=== PATIENT | male | born 1960 | race Caucasian/White ===

== ENCOUNTER 2021-09-16 13:59 | Outpatient (REF) | payer OTHER, SELFPAY ==
[2021-09-16 14:04] LABS: MANUAL DIFF FLAG NO
[2021-09-16 14:27] LABS: Basophils Percent Auto 0.6 % (0-2); Eosinophils Absolute Auto 0.1 X10*3/uL (0.0-0.4); Eosinophils Percent Auto 2.5 % (0-4); Hematocrit 42.3 % (42.0-52.0); Hemoglobin 13.8 g/dl (14.0-18.0); Imm Gran Abs Auto 0.02 X10*3/uL (0.00-0.03); Imm Gran Pct Auto 0.4 % (0.0-0.4); Lymphocytes Absolute Auto 2.2 X10*3/uL (1.2-4.9); Lymphocytes Percent Auto 41.2 % (20-40); Mean Corpuscular HGB Conc 32.6 g/dl (31.0-36.0); Mean Corpuscular Hemoglobin 32.2 pg (27.0-33.0); Mean Corpuscular Volume 98.6 fL (80.0-98.0); Mean Platelet Volume 10.6 fL (9.4-12.4); Monocytes Absolute Auto 0.5 X10*3/uL (0.1-1.2); Monocytes Percent Auto 8.7 % (2-11); Neutrophils Absolute Auto 2.5 x10*3/uL (2.0-8.3); Neutrophils Percent Auto 46.6 % (45-73); Platelet Count 266 X10*3/uL (160-400); Red Blood Count 4.29 X10*6/uL (4.60-5.80); Red Cell Distribution Width 12.4 % (11.0-16.0); White Blood Count 5.3 X10*3/uL (4.8-10.8)
[2021-09-16 14:29] LABS: Appearance Urine CLEAR; Color Urine YELLOW; Glucose Urine UA NEG (NEG); Leukocyte Esterase Urine NEG (NEG); Nitrite Urine NEG (NEG); Specific Gravity - Urine >= 1.030 (1.005-1.025); Urine Blood NEG (NEG); Urine Ketones NEG (NEG); Urine Protein NEG (NEG-TRACE)
[2021-09-16 14:35] LABS: Estimated Average Glucose 111 mg/dL; Hemoglobin A1c % 5.5 %
[2021-09-16 14:49] LABS: Creatinine Urine 144.78 mg/dL; Microalbum/Creatinine Ratio Ur 4.1 ug/mg cr
[2021-09-16 14:52] LABS: Alanine Aminotransferase 45 U/L (0-40); Albumin Level 4.1 g/dL (3.5-5.0); Alkaline Phosphatase 65 U/L (39-117); Anion Gap 13 (12-20); Aspartate Amino Transferase 44 U/L (5-37); Bilirubin Total 0.8 mg/dL (0.0-1.0); Blood Urea Nitrogen 18 mg/dL (9-16); Calcium 9.2 mg/dL (8.4-10.2); Carbon Dioxide 26 mmol/L (22-29); Chloride 107 mmol/L (96-108); Cholesterol 184 mg/dL; Estimated Glomerular Filt Rate > 60; Glucose Fasting 98 mg/dL (60-99); HDL Cholesterol 32 mg/dL; LDL Cholesterol Calculated 108 mg/dl; Potassium 4.3 mmol/L (3.3-5.1); Sodium 142 mmol/L (135-145); Total Protein 6.7 g/dL (6.5-8.0); Triglycerides 222 mg/dL
[2021-09-16 15:12] LABS: PSA,Total (Free>4and<10) 1.32 ng/mL (0.00-4.00)
[2021-09-16 16:08] LABS: Reflex LDLD? No
== END 2021-09-16 14:00 | disposition home or self-care (01) ==
LOC: HO.LNP 13:59
PROVIDERS: Visit Provider Internal Medicine
DX: Z00.00 Encounter for general adult medical examination without abnormal findings (principal); Z12.5 Encounter for screening for malignant neoplasm of prostate; E78.1 Pure hyperglyceridemia; R73.03 Prediabetes
CPT/HCPCS: 80053; 80061; 81003; 82043; 83036; 84153; 85025

== ENCOUNTER 2023-09-21 10:46 | Outpatient (REF) | payer MEDICARE, SELFPAY ==
[2023-09-21 10:51] LABS: MANUAL DIFF FLAG NO
[2023-09-21 11:48] LABS: Basophils Percent Auto 0.5 % (0-2); Eosinophils Absolute Auto 0.2 X10*3/uL (0.0-0.4); Eosinophils Percent Auto 2.5 % (0-4); Hematocrit 42.8 % (42.0-52.0); Hemoglobin 14.6 g/dl (14.0-18.0); Imm Gran Abs Auto 0.02 X10*3/uL (0.00-0.03); Imm Gran Pct Auto 0.3 % (0.0-0.4); Lymphocytes Absolute Auto 2.6 X10*3/uL (1.2-4.9); Lymphocytes Percent Auto 41.1 % (20-40); Mean Corpuscular HGB Conc 34.1 g/dl (31.0-36.0); Mean Corpuscular Hemoglobin 32.3 pg (27.0-33.0); Mean Corpuscular Volume 94.7 fL (80.0-98.0); Mean Platelet Volume 10.7 fL (9.4-12.4); Monocytes Absolute Auto 0.6 X10*3/uL (0.1-1.2); Monocytes Percent Auto 9.8 % (2-11); Neutrophils Absolute Auto 2.9 x10*3/uL (2.0-8.3); Neutrophils Percent Auto 45.8 % (45-73); Platelet Count 268 X10*3/uL (160-400); Red Blood Count 4.52 X10*6/uL (4.60-5.80); Red Cell Distribution Width 12.4 % (11.0-16.0); White Blood Count 6.3 X10*3/uL (4.8-10.8)
[2023-09-21 11:52] LABS: Appearance Urine Clear; Color Urine Yellow; Glucose Urine UA Negative (Negative); Leukocyte Esterase Urine Negative (Negative); Nitrite Urine Negative (Negative); PH 5.5 (5.0-9.0); Specific Gravity - Urine 1.015 (1.005-1.025); Urine Blood Negative (Negative); Urine Ketones Negative (Negative); Urine Protein Negative (Neg-Trace)
[2023-09-21 11:58] LABS: Bacteria Urine None Seen (None Seen); Hyaline Casts Urine 0-2 /LPF (0-2); RBC Urine 0-2 /HPF (0-2); Squamous Epithelial Cell Urine 0-2 /HPF (0-2); WBC Urine 0-5 /HPF (0-5)
[2023-09-21 12:00] LABS: Estimated Average Glucose 111 mg/dL; Hemoglobin A1c % 5.5 % (<6.0)
[2023-09-21 12:24] LABS: PSA,Total (Free>4and<10) 1.49 ng/mL (0.00-4.00)
[2023-09-21 12:27] LABS: Alanine Aminotransferase 48 U/L (0-40); Albumin Level 4.1 g/dL (3.5-5.0); Alkaline Phosphatase 67 U/L (39-117); Anion Gap 15 (12-20); Aspartate Amino Transferase 44 U/L (5-37); Bilirubin Total 0.5 mg/dL (0.0-1.0); Blood Urea Nitrogen 20 mg/dL (9-16); Calcium 9.4 mg/dL (8.4-10.2); Carbon Dioxide 25 mmol/L (22-29); Chloride 106 mmol/L (96-108); Cholesterol 198 mg/dL (<200); Estimated Glomerular Filt Rate > 60; Glucose Fasting 96 mg/dL (60-99); HDL Cholesterol 35 mg/dL (>40); LDL Cholesterol Calculated 104 mg/dL (<100); Sodium 142 mmol/L (135-145); Total Protein 7.2 g/dL (6.5-8.0); Triglycerides 297 mg/dL (<150)
[2023-09-21 12:47] LABS: Creatinine Urine 110.02 mg/dL; Microalbumin Urine < 5.0 mg/L
== END 2023-09-21 10:47 | disposition home or self-care (01) ==
LOC: HO.LNP 10:46
PROVIDERS: Visit Provider Internal Medicine
DX: Z00.00 Encounter for general adult medical examination without abnormal findings (principal); Z12.5 Encounter for screening for malignant neoplasm of prostate; E78.1 Pure hyperglyceridemia; R73.03 Prediabetes; I10 Essential (primary) hypertension
CPT/HCPCS: 80053; 80061; 81001; 82043; 82570; 83036; 84153; 85025

== ENCOUNTER 2024-09-29 12:09 | Outpatient (REF) | payer MEDICARE, SELFPAY ==
--- OUTSIDE RECORDS SUMMARY | 2024-09-29 12:12 | XMS_ITS ---
Author Organization [facility] Address [address] [place] [address] Care Team Providers Care Precision Lens Grinder Name Role Phone oPp Cleveland MD Primary Care Provider Bob Mejia [phone] ALLERGIES No Known Allergies REASON FOR VISIT Patient presents today for a SCREENING COLON MEDICATIONS Medication SIG (Take, Route, Fr equency, Duration) Notes Start Date End Date Status Valsartan 80 MG TAKE 1 TABLET BY JOSEPHINE TH EVERY DAY Oral for 90 Active Multivitamin Adults Active PROBLEMS Problem Type ICD Code Onset Dates Problem Status W/U Status Risk SNOMED Code Notes Problem Colon cancer screening (Z12.11) Active confirmed Colon cancer screening (984981966) Problem Chronic GERD (K21.9) Active confirmed Gastroesophagea l reflux disease (disorder) (648145891) VITAL SIGNS BMI 29.86 kg/m2 09/28/2024 Blood pressure systolic 000 mm Hg 09/28/20 24 Blood pressure diastolic 00 mm Hg 024 Height 71 in 09/28/2024 Temperature 97.8 degrees Fahrenheit 09/28/20 24 Weight 214 lb 2 oz lbs 09/28/2024 Encounters Encounter Location Date Provider Diagnosis [facility] [address] [place] [address] 09/28/2024 Bob Guillen Colon cancer screeni ng Z12.11 ; Chronic GERD K21.9 and Hx of adenomatous colonic polyps Z86.010 ASSESSMENTS Encounter Date Diagnosis Assessment Notes Treatment Notes Treatment Clinical Notes 09/28/2024 Colon cancer screening (ICD-10 - Z12.11) 09/28/2024 Chronic GERD (ICD-10 - K21.9) 09/28/2024 Hx of adenomatous colonic polyps (ICD-10 - Z86.010) PLAN OF TREATMENT Future Test Test Name Order Date UPPER GI ENDOSCOPY 09/28/2024 COLONOSCOPY 09/28/2024 Next Appt Details Follow Up: prn, Reason: Provider Name:Bob Guillen , 10/10/2024 09:40:00 AM, [address] [place] [address], [phone], Progress Notes * Examination Category Sub-Category Detail Notes General Examination GENERAL APPEARANCE: pleasant , well nourished, well developed, in no acute distress EYES: sclera non-icteric NECK/THYROID: no cervical lymphade nopathy, neck supple HEART: S1, S2 normal LUNGS: clear to auscultatio n bilaterally ABDOMEN: normal bowel sounds, no guarding or rigidity, no hepatosplenomegaly, no masses palpable, soft, nontender, nondistended. NEUROLOGIC: alert and oriented SKIN: nonjaundiced, no spi marcelo angiomata. EXTREMITIES: no edema ORAL CAVITY: mucosa moist
--- OUTSIDE RECORDS SUMMARY | 2024-09-29 12:13 | XMS_ITS | Patient Health Record ---
Author Organization [facility] Address [address] [place] [address] Care Team Providers Care Photo Optics Technician Name Role Phone Megha LEHMAN, Pop Primary Care Provider Bob Mejia Unavailable [phone] ALLERGIES No Known Allergies REASON FOR REFERRAL No Information MEDICATIONS Medication SIG (Take, Route, Fr equency, Duration) Notes Start Date End Date Status Valsartan 80 MG TAKE 1 TABLET BY JOSEPHINE TH EVERY DAY Oral for 90 Active Multivitamin Adults Active IMMUNIZATIONS Vaccine Route Administration Date Status Comme nts Influenza Unknown 07/12/2018 Administered Influenza Unknown 09/13/2024 Administered SOCIAL HISTORY Sex Assigned At : Social History Observation Description Sex Assigned At Unknown PROBLEMS Problem Type ICD Code Onset Dates Problem Status W/U Status Risk SNOMED Code Notes Problem Colon cancer screening (Z12.11) Active confirmed Colon cancer screening (120605435) Problem Encounter for screening for malignant neoplasm of colon (Z12.11) Active confirmed 252746882 Problem Hx of adenomatous colonic polyps (Z86.010) Active confirmed 505133692 Problem Abdominal pain, right upper quadrant (R10.11) Active confirmed 724039122 Problem Pre-procedural examination (Z01.818) Active confirmed [id number] Problem Chronic GERD (K21.9) Active confirmed Gastroesophagea l reflux disease (disorder) (975042156) VITAL SIGNS Temperature 97.8 degrees Fahrenheit 09/28/2024 Blood pressure diastolic 00 mm Hg 09/28/2024 Height 71 in 09/28/2024 Blood pressure systolic 000 mm Hg 09/28/2024 Weight 214 lb 2 oz lbs 09/28/2024 BMI 29.86 kg/m2 09/28/2024 Encounters Encounter Location Date Provider Diagnosis [facility] [address] [place] [address] 09/28/2024 Bob Guillen Colon cancer screeni ng Z12.11 ; Chronic GERD K21.9 and Hx of adenomatous colonic polyps Z86.010 ASSESSMENTS Encounter Date Diagnosis Assessment Notes Treatment Notes Treatment Clinical Notes 09/28/2024 Colon cancer screening (ICD-10 - Z12.11) 09/28/2024 Chronic GERD (ICD-10 - K21.9) 09/28/2024 Hx of adenomatous colonic polyps (ICD-10 - Z86.010) PLAN OF TREATMENT Future Test Test Name Order Date COLONOSCOPY 02/16/2013 COLONOSCOPY 11/25/2018 UPPER GI ENDOSCOPY 09/28/2024 COLONOSCOPY 09/28/2024 Next Appt Details Provider Name:Bob Guillen , 10/10/2024 09:40:00 AM, [address] [facility] , [place], [place], [phone], Insurance Providers Payer Name Payer Address Payer Phone Subscriber Number Group Number Insured Name Patient Relationship to Insured Coverage Start Date Coverage End Date [facility] [address] [place] [address] [id number] CHELITA JAMISON Self - patient is the insured MEDICAL (GENERAL) HISTORY Medical History History ICD Code Colonoscopy 3-17-2007-1 smal l tubular adenoma removed; also noted were small internal hemorrhoids and occasional diverticulosis; colonoscopy in 11/2013-small tubular adenoma removed IBS Hx of a bleeding ulcer which required tr ansfusions in high school. Denies AL,DM,CVA,Lung disease,renal dise ase Chronic right upper quadrant discomfort with a negative gallbladder ultrasound in 2015 Colonoscopy 07/2019 with a small tubular adenoma HTN Malignant melanoma on scalp 2022 Surgical History Surgery Date(Month/Year) Left shoulder Removal of malignant melanoma from scalp in 09/2023
--- OUTSIDE RECORDS SUMMARY | 2024-09-29 12:13 | XMS_ITS ---
Author Organization Pop Cleveland MD Address [address] [place], [place] [phone] Care Team Providers Care Rigger Chief Name Role Phone Pop Cleveland Primary Care Provider ALLERGIES No Known Allergies REASON FOR VISIT Covid tested positive today was in [place] returned 3 days ago, c/o chills fatigue , headache sore throat, cough muscle aches, congestion nauseau diarrhea x 2days, Video [phone] MEDICATIONS Medication SIG (Take, Route, Frequency, Duration) Notes Start Date End Date Status Ventolin HFA * 108 (90 Base) MCG/ACT 2 puffs as needed Inhalation every 4 hrs for 30 day(s) 06/28/2018 Not-Taking Scopolamine 1 MG/3DAYS APPLY 1 PATCH TO THE SKIN EVERY 3 DAYS EVERY 3 DAYS NEEDED for 12 Not-Taking Valsartan 80 MG TAKE 1 TABLET BY MOUTH EVERY DAY Active LORazepam 1 MG 1 tablet at bedtime as needed Orally Once a day for 4 days 09/20/2021 Not-Taking Cyclobenzaprine HCl 5 MG 1 tablet as nee ded Orally Three times a day for 10 days 04/12/2019 Not-Taking HYDROcodone-Acetaminophen 5-325 MG 1 tablet as needed Orally every 6 hrs for 5 days 09/20/2021 Not-Taking Paxlovid (300/100) 20 x 150 MG & 10 x 100MG 3 tablets Orally Twice a day for 5 day(s) 05/13/2024 Active VITAL SIGNS BMI 28.59 kg/m2 05/13/2024 Height 71 in 05/13/2024 Weight 205 lbs 05/13/2024 weight is 205 at home BP not taken no temp Encounters Encounter Location Date Provider Diagnosis Pop Cleveland MD [address] [place] [address] Drive [address] [place], [place] [phone] 05/13/2024 Pop Cleveland COVID-19 U07.1 ASSESSMENTS Encounter Date Diagnosis Assessment Notes Treatment Notes Treatment Clinical Notes 05/13/2024 COVID-19 (ICD-10 - U07.1) PLAN OF TREATMENT Medication Medication Name Sig Start Date Stop Date Notes Paxlovid (300/100) 20 x 150 MG & 10 x 100MG 3 tablets Orally Twice a day for 5 day(s) 05/13/2024 Next Appt Details Provider Name:Pop You ier, 10/07/2024 09:30:00 AM, [address] [place] [address], [address], [place], [place], [phone], Progress Notes * Examination Category Sub-Category Detail Notes General Examination GENERAL APPEARANCE: alert, w ell hydrated, in no distress , male HEAD: normocephalic History and Physical Notes * HPI (History of Present Illness) Category Sub-Category Detail Notes Symptom(s) Telehealth Location of prov ider rendering services:: [address], [address] Location of patient:: at address listed in demographics for today's visit Patient identification confirmed using:: Name, , SSN, Insurance information Telehealth method:: Video co nference where patient is visible to the provider of care Consent:: Patient verbally c onsented to treatment, Patient verbally consented to billing insurance company, Patient informed of any privacy concerns related to method of visit
--- OUTSIDE RECORDS SUMMARY | 2024-09-29 12:13 | XMS_ITS ---
Author Organization Pop Cleveland MD Address [address] [place] [phone] Care Team Providers Care Scientific Systems Analyst Name Role Phone Pop Cleveland Primary Care Provider [phone] REASON FOR VISIT ER visit rec'd Encounters Encounter Location Date Provider Diagnosis Pop Cleveland MD [address] [facility] [address] [place], [place] [phone] 05/02/2024 Pop Cleveland PLAN OF TREATMENT Next Appt Details Provider Name:Pop You ier, 10/07/2024 09:30:00 AM, [address] [place] [address], [address], [place], [place], [phone],
--- OUTSIDE RECORDS SUMMARY | 2024-09-29 12:13 | XMS_ITS | Patient Health Record ---
Author Organization Pop Cleveland MD Address [address] [place], [place] [phone] Care Team Providers Care Sales Training Representative Name Role Phone Pop Cleveland Primary Care Provider ALLERGIES No Known Allergies REASON FOR REFERRAL No Information MEDICATIONS Medication SIG (Take, Route, Frequency, Duration) Notes Start Date End Date Status Cyclobenzaprine HCl 5 MG 1 tablet as nee ded Orally Three times a day for 10 days 04/12/2019 Not-Taking HYDROcodone-Acetaminophen 5-325 MG 1 tablet as needed Orally every 6 hrs for 5 days 09/20/2021 Not-Taking Ventolin HFA * 108 (90 Base) MCG/ACT 2 puffs as needed Inhalation every 4 hrs for 30 day(s) 06/28/2018 Not-Taking Valsartan 80 MG TAKE 1 TABLET BY MOUTH EVERY DAY Active Scopolamine 1 MG/3DAYS APPLY 1 PATCH TO THE SKIN EVERY 3 DAYS EVERY 3 DAYS NEEDED 12 for 12 Active LORazepam 1 MG 1 tablet at bedtime as needed Orally Once a day for 4 days 09/20/2021 Not-Taking Paxlovid (300/100) 20 x 150 MG & 10 x 100MG 3 tablets Orally Twice a day for 5 day(s) 05/13/2024 Active IMMUNIZATIONS Vaccine Route Administration Date Status Comme [facility] Flu Vaccine Unknown 08/02/2013 Administered Given at rk; [facility] Flu Vaccine Unknown 07/18/2014 Administered [facility] Fluarix Quadrivalent Unknown 06/30/2016 Administered No [facility] Shingrix IM Intramuscular 07/02/2018 Administered Shingrix IM Intramuscular 11/25/2018 Administered Fluarix Quadrivalent Unknown 07/22/2020 Administered [facility] SARS-COV-2 Pfizer Unknown 10/17/2020 Administered SARS-COV-2 Pfizer Unknown 11/07/2020 Administered SARS-COV-2 Pfizer Unknown 07/17/2021 Administered Fluarix Quadrivalent Unknown 07/17/2021 Administered SARS-COV-2 Pfizer Unknown 07/08/2022 Administered [facility] Fluarix Quadrivalent Unknown 07/08/2022 Administered [facility] SARS-COV-2 Pfizer Unknown 09/18/2023 Administered SOCIAL HISTORY Tobacco Use: Social History Observation Description Date Details (start date - stop date) Never Smoker NA - NA Sex Assigned At : Social History Observation Description Sex Assigned At Unknown Tobacco Use/Smoking Question Answer Notes Patient is a nonsmoker Additional Findings: Tobacco Non-User Cu rrent non-smoker, currently using no form of tobacco PROBLEMS Problem Type ICD Code Onset Dates Problem Status W/U Status Risk SNOMED Code Notes Problem Lumbar disc disease (M51.9) Active confirmed 008098610 Problem Essential hypertension (I10) Active confirmed Essential hypertension (01997747) Problem Prediabetes (R73.09) Active confirmed Prediabetes (680809900) Problem High triglycerides (E78.1) Active confirmed 040043645 Problem Cervical disc disease (M50.90) Active confirmed 746923923 Problem Sciatica of left side (M54.32) Active confirmed 11721701 Problem 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 confirmed 764055703 Problem Renal cyst (N28.1) Active confirmed 595131937 Problem Kidney cyst, acquired (N28.1) Active confirmed 918145839 Problem 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) Active confirmed 1898196949951 Problem Skin melanoma (C43.9) Active confirmed 47766847 VITAL SIGNS Blood pressure diastolic 70 mm Hg 04/01/2024 Height 71 in 05/13/2024 weight is 205 a t home BP not taken no temp Blood pressure systolic 116 mm Hg 04/01/2024 Weight 205 lbs 05/13/2024 weight is 205 a t home BP not taken no temp BMI 28.59 kg/m2 05/13/2024 weight is 205 a t home BP not taken no temp Encounters Encounter Location Date Provider Diagnosis Pop Cleveland MD [address] [place] [phone] 09/29/2024 Pop Cleveland Blood tests for routine general physical examination Z00.00 ; High triglycerides E78.1 ; Prediabetes R73.09 and Essential hypertension I10 Pop Cleveland MD [address] [place] [id number] 04/01/2024 Pop Cleveland Essential hypertension I10 and Skin melanoma C43.9 Pop Cleveland MD [address] [place] [id number] 03/31/2024 Pop Cleveland MD [address] [place] [id number] 05/02/2024 Pop Cleveland MD [address] [place] [phone] 05/13/2024 Pop Cleveland COVID-19 U07.1 ASSESSMENTS Encounter Date Diagnosis Assessment Notes Treatment Notes Treatment Clinical Notes 09/29/2024 Blood tests for routine general physical examination (ICD-10 - Z00.00) 04/01/2024 Essential hypertension (ICD-10 - I10) doing great on med, will continue current regiment 04/01/2024 Skin melanoma (ICD-1 0 - C43.9) need note from [place]/ REQUEST MADE BY PHONE MESSAGE TO FAX THE OFFICE NOTES TO PCP 05/13/2024 COVID-19 (ICD-10 - U07.1) 09/29/2024 High triglycerides (ICD-10 - E78.1) 09/29/2024 Prediabetes (ICD-10 - R73.09) 09/29/2024 Essential hypertension (ICD-10 - I10) PLAN OF TREATMENT Pending Test Test Name Order Date Electrocardiogram (EKG) 02/22/2013 Electrocardiogram (EKG) 07/17/2017 Electrocardiogram (EKG) 08/12/2018 Electrocardiogram (EKG) 08/18/2019 CARDIOVASCULAR STRESS TEST 09/20/2021 CT ABD & PELVIS WITH CONTRAST 03/03/2017 Complete Blood Count Auto Diff 4 Comprehensive [place]. Panel Fast 4 Lipid Panel 09/29/2024 PSA,Total (Free>4and<10) 09/29/2024 Microalbumin, Random 09/29/2024 Hemoglobin A1c 09/29/2024 UA ClnCatch+Micro w/rflx Cult 09/29/2024 Next Appt Details Provider Name:Pop You ier, 10/07/2024 09:30:00 AM, [address] [facility], [address], [place], [place], [phone], Insurance Providers Payer Name Payer Address Payer Phone Subscriber Number Group Number Insured Name Patient Relationship to Insured Coverage Start Date Coverage End Date [employer] [address] [place], [place] [id number] [phone] [id number] Dario Albarran Self - patient is the insured MEDICAL (GENERAL) HISTORY Medical History History ICD Code colonoscopy 12/05/13, Dr. Man ss - 5 year f/u; Colonoscopy done 07/29/[address] Guillen - repeat 5 years ultrasound kidneys need no further follo w up
--- OUTSIDE RECORDS SUMMARY | 2024-09-29 12:13 | XMS_ITS ---
Author Organization Pop Cleveland MD Address [address] [place], [place] [phone] Care Team Providers Care New Car Make Ready Worker Name Role Phone Pop Cleveland Primary Care Provider REASON FOR VISIT FASTING LABS Encounters Encounter Location Date Provider Diagnosis Pop Cleveland MD [address] [place], [place] [phone] 09/29/2024 Pop Cleveland Blood tests for routine general physical examination Z00.00 ; High triglycerides E78.1 ; Prediabetes R73.09 and Essential hypertension I10 ASSESSMENTS Encounter Date Diagnosis Assessment Notes Treatment Notes Treatment Clinical Notes 09/29/2024 Blood tests for routine general physical examination (ICD-10 - Z00.00) 09/29/2024 High triglycerides (ICD-10 - E78.1) 09/29/2024 Prediabetes (ICD-10 - R73.09) 09/29/2024 Essential hypertension (ICD-10 - I10) PLAN OF TREATMENT Pending Test Test Name Order Date Complete Blood Count Auto Diff 4 Comprehensive [place]. Panel Fast Lipid Panel 09/29/2024 PSA,Total (Free>4and<10) 09/29/2024 Microalbumin, Random 09/29/2024 Hemoglobin A1c 09/29/2024 UA ClnCatch+Micro w/rflx Cult 09/29/2024 Next Appt Details Provider Name:Pop house, 10/07/2024 09:30:00 AM, [address] [facility], [address], [place], [place], [phone],
[2024-09-29 12:15] LABS: MANUAL DIFF FLAG NO
[2024-09-29 13:07] LABS: Basophils Percent Auto 0.5 % (0-2); Eosinophils Absolute Auto 0.1 X10*3/uL (0.0-0.4); Eosinophils Percent Auto 1.9 % (0-4); Hematocrit 46.1 % (42.0-52.0); Hemoglobin 15.3 g/dl (14.0-18.0); Imm Gran Abs Auto 0.01 X10*3/uL (0.00-0.03); Imm Gran Pct Auto 0.2 % (0.0-0.4); Lymphocytes Absolute Auto 2.9 X10*3/uL (1.2-4.9); Lymphocytes Percent Auto 45.3 % (20-40); Mean Corpuscular HGB Conc 33.2 g/dl (31.0-36.0); Mean Corpuscular Hemoglobin 31.9 pg (27.0-33.0); Mean Platelet Volume 10.5 fL (9.4-12.4); Monocytes Absolute Auto 0.6 X10*3/uL (0.1-1.2); Monocytes Percent Auto 9.1 % (2-11); Neutrophils Absolute Auto 2.7 x10*3/uL (2.0-8.3); Platelet Count 297 X10*3/uL (160-400); Red Cell Distribution Width 12.4 % (11.0-16.0); White Blood Count 6.4 X10*3/uL (4.8-10.8)
[2024-09-29 13:09] LABS: Estimated Average Glucose 114 mg/dL; Hemoglobin A1c % 5.6 % (<6.0); Total Hemoglobin (HGBA1C) 3870.0401 umol/L
[2024-09-29 13:34] LABS: Alanine Aminotransferase 56 U/L (0-40); Albumin Level 4.2 g/dL (3.5-5.0); Alkaline Phosphatase 63 U/L (39-117); Anion Gap 12 (12-20); Aspartate Amino Transferase 45 U/L (5-37); Bilirubin Total 0.7 mg/dL (0.0-1.0); Blood Urea Nitrogen 20 mg/dL (9-16); Calcium 9.5 mg/dL (8.4-10.2); Carbon Dioxide 28 mmol/L (22-29); Chloride 106 mmol/L (96-108); Cholesterol 213 mg/dL (<200); Estimated Glomerular Filt Rate 59; Glucose Fasting 108 mg/dL (60-99); HDL Cholesterol 32 mg/dL (>40); Potassium 4.3 mmol/L (3.3-5.1); Sodium 142 mmol/L (135-145); Total Protein 7.3 g/dL (6.5-8.0); Triglycerides 488 mg/dL (<150)
[2024-09-29 13:38] LABS: Creatinine Urine 101.61 mg/dL; Microalbum/Creatinine Ratio Ur 4.9 ug/mg cr (<30)
[2024-09-29 13:44] LABS: Appearance Urine Clear; Color Urine Yellow; Glucose Urine UA Negative (Negative); Leukocyte Esterase Urine Negative (Negative); Nitrite Urine Negative (Negative); PH 5.5 (5.0-9.0); Specific Gravity - Urine 1.015 (1.005-1.025); Urine Blood Negative (Negative); Urine Ketones Negative (Negative); Urine Protein Negative (Neg-Trace)
[2024-09-29 13:49] LABS: PSA,Total (Free>4and<10) 1.32 ng/mL (0.00-4.00)
[2024-09-29 13:53] LABS: Bacteria Urine None Seen (None Seen); Hyaline Casts Urine 0-2 /LPF (0-2); RBC Urine 0-2 /HPF (0-2); Squamous Epithelial Cell Urine 0-2 /HPF (0-2); WBC Urine 0-5 /HPF (0-5)
== END 2024-09-29 12:10 | disposition home or self-care (01) ==
LOC: HO.LNP 12:09
PROVIDERS: Visit Provider Internal Medicine
DX: Z00.00 Encounter for general adult medical examination without abnormal findings (principal); Z12.5 Encounter for screening for malignant neoplasm of prostate; R73.09 Other abnormal glucose; E78.1 Pure hyperglyceridemia; I10 Essential (primary) hypertension
CPT/HCPCS: 80053; 80061; 81001; 82043; 82570; 83036; 84153; 85025

== ENCOUNTER 2024-10-10 07:39 | Day surgery (SDC) | payer MEDICARE, SELFPAY ==
--- OUTSIDE RECORDS SUMMARY | 2024-10-06 11:55 | XMS_ITS ---
Author Organization Pop Cleveland MD Address [address] [place], [place] [phone] Care Team Providers Care Lining Parts Sewer Name Role Phone Pop Cleveland Primary Care Provider [phone] RESULTS Component Value Reference Range Notes Complete Blood Count Auto Di ff Reviewed date:09/29/2024 04:43:11 PM Interpretation: Performing Lab:[facility], [address] [place] [phone] Notes/Report: White Blood Count 6.4 4.8-10.8 X10*3/uL Red Blood Count 4.80 4.60-5.80 X10*6/uL Hemoglobin 15.3 14.0-18.0 g/dl Hematocrit 46.1 42.0-52.0 % Mean Corpuscular Volume 96.0 80.0-98.0 fL Mean Corpuscular Hemoglobin 31.9 27.0-33.0 pg Mean Corpuscular HGB Conc 33.2 31.0-36.0 g/dl Red Cell Distribution Width 12.4 11.0-16.0 % Platelet Count 297 160-400 X10*3/uL Mean Platelet Volume 10.5 9.4-12.4 fL Neutrophils Percent Auto 43.0 45-73 % Imm Gran Pct Auto 0.2 0.0-0.4 % Lymphocytes Percent Auto 45.3 20-40 % Monocytes Percent Auto 9.1 2-11 % Eosinophils Percent Auto 1.9 0-4 % Basophils Percent Auto 0.5 0-2 % NRBC Pct Auto 0.0 0.0-0.2 /100WBC Neutrophils Absolute Auto 2.7 2.0-8.3 x10*3/u L Imm Gran Abs Auto 0.01 0.00-0.03 X10*3/uL Lymphocytes Absolute Auto 2.9 1.2-4.9 X10*3/u L Monocytes Absolute Auto 0.6 0.1-1.2 X10*3/uL Eosinophils Absolute Auto 0.1 0.0-0.4 X10*3/u L Basophils Absolute Auto 0.0 0.0-0.2 X10*3/uL NRBC Abs Auto 0.000 0.0-0.012 X10*3/uL Comprehensive [place]. Panel Fa st Reviewed date:09/29/2024 04:42:33 PM Interpretation: Performing Lab:[facility], [address] [place] [phone] Notes/Report: Sodium 142 135-145 mmol/L Potassium 4.3 3.3-5.1 mmol/L Chloride 106 96-108 mmol/L Carbon Dioxide 28 22-29 mmol/L Anion Gap 12 12-20 Blood Urea Nitrogen 20 9-16 mg/dL Creatinine 1.23 0.5-1.4 mg/dL Estimated Glomerular Filt Rate 59 Chronic Kidney Disease: Estimated GFR < 60 mL/min/1.73m2 Severe Kidney Disease: Estimated GFR < 15 mL/min/1.73m2 Glucose Fasting 108 60-99 mg/dL A fasting glucose from 100-125 mg/dl is considered impaired (pre-diabetes). Calcium 9.5 8.4-10.2 mg/dL Bilirubin Total 0.7 0.0-1.0 mg/dL Aspartate Amino Transferase 45 5-37 U/L Alanine Aminotransferase 56 0-40 U/L Total Protein 7.3 6.5-8.0 g/dL Albumin Level 4.2 3.5-5.0 g/dL Alkaline Phosphatase 63 39-117 U/L Lipid Panel Reviewed date:09/29/2024 04:43:23 PM Interpretation: Performing Lab:[facility], [address] [place] [phone] Notes/Report: Triglycerides 488 <150 mg/dL Desirable Triglyceride: less than 150 mg/dL Borderline High Triglyceride 150-199 mg/dL High Triglyceride: 200-499 mg/dL Very High Triglyceride: greater than or equal to 5OO mg/dL Cholesterol 213 <200 mg/dL Desirable Cholesterol: less than 200 mg/dL Borderline High Cholesterol: 200-239 mg/dL High Cholesterol: greater than 239 mg/dL LDL Cholesterol Calculated TNP <100 mg/dL Unable to calculate the LDL. The formula of Friedwald, Simpson, and Fox is only valid if the triglycerides are less than 400 mg/dl. HDL Cholesterol 32 >40 mg/dL Desirable HDL: greater than 40 mg/dL Note: This HDL assay may give artificially low results in patients with liver disease. PSA,Total (Free>4and<10) Reviewed date:09/29/2024 04:42:40 PM Interpretation: Performing Lab:[address] [phone] Notes/Report: PSA,Total (Free>4and<10) 1.32 0.00-4.00 ng/mL A Free PSA was not performed: The percentage of Free PSA can be used to enhance the differentiation of prostate cancer from benign prostatic disease in subjects whose PSA levels are between 4.0 and 10.0 ng/mL. For subjects whose PSA levels are below 4.0 or above 10.0 ng/mL, the risk of prostate cancer is determined on the basis of the PSA alone. Therefore the % Free PSA is recommended only for those subjects whose PSA levels are between 4.0 and 10.0 ng/mL. PSA methodology: Doan Alinity i Chemiluminescent Microparticle Immunoassay (CMIA) Microalbumin, Random Reviewed date:09/29/2024 04:42:47 PM Interpretation: Performing Lab:[facility], [address] [place] [phone] Notes/Report: Creatinine Urine 101.61 Microalbumin Urine 5.0 Microalbum/Creatinine Ratio Ur 4.9 <30 ug/mg cr Albumin/Creatinine Ratio Reference Ranges: Normal: < 30 ug/mg creatinine Microalbuminuria: 30 - 300 ug/mg creatinine Clinical Albuminuria: > 300 ug/mg creatinine Hemoglobin A1c Reviewed date:09/29/2024 04:42:24 PM Interpretation: Performing Lab:[facility], [address] [place] [phone] Notes/Report: Hemoglobin A1c % 5.6 <6.0 % Hemoglobin A1C Reference Range Adults: 4.8 - 6.0 % Non diabetic: < 6.0 % Goal: < 7.0 % Additional Action Suggested: > 8.0 % Note: Hemoglobin A1c results are invalid for patients with abnormal amounts of HbF. Blood transfusions may impact the HbA1c concentration in the patient sample. Estimated Average Glucose 114 eAG = Estimated average glucose which is %A1C expressed as average glucose, using the formula of the M2Z-Ufhubvc Average Glucose study (ADAG), Diabetes Care, Vol.31,#8, 2007 UA ClnCatch+Micro w/rflx Cul t Reviewed date:09/29/2024 04:43:46 PM Interpretation: Performing Lab:[facility], [address] [place] [phone] Notes/Report: Urine, Clean Catch Color Urine Yellow Appearance Urine Clear PH 5.5 5.0-9.0 Glucose Urine UA Negative Negative mg/dL Urine Blood Negative Negative Specific [place] - Urine 1.015 1.005-1.025 Urine Protein Negative Neg-Trace mg/dL Urine Ketones Negative Negative mg/dL Nitrite Urine Negative Negative Leukocyte Esterase Urine Negative Negative RBC Urine 0-2 0-2 /HPF WBC Urine 0-5 0-5 /HPF Squamous Epithelial Cell Urine 0-2 0-2 /HPF Bacteria Urine None Seen None Seen Hyaline Casts Urine 0-2 0-2 /LPF REASON FOR VISIT FASTING LABS Encounters Encounter Location Date Provider Diagnosis Pop Cleveland MD [address] [place] [address] Drive [address] [place], [place] [phone] 09/29/2024 Pop Cleveland Blood tests for routine [...] hypertension (ICD-10 - I10) PLAN OF TREATMENT Next Appt Details Provider Name:Pop house, 10/07/2024 09:30:00 AM, [address] [place] [address], [address], [place], [place], [phone],
--- OUTSIDE RECORDS SUMMARY | 2024-10-06 11:55 | XMS_ITS ---
Author Organization Pop Cleveland MD Address [address] [place], [place] [id number] Care Team Providers Care Senior Examiner Name Role Phone Pop Cleveladn Primary Care Provider ALLERGIES No Known Allergies REASON FOR VISIT Covid tested positive today was in [place] returned 3 days ago, c/o chills fatigue , headache sore throat, cough muscle aches, congestion nauseau diarrhea x 2days, Video [phone] MEDICATIONS Medication SIG (Take, Route, Frequency, Duration) [...] Location Date Provider Diagnosis Pop Cleveland MD [address] [place] [address] Drive [address] [place], [place] [phone] 05/13/2024 Pop Cleveland COVID-19 U07.1 ASSESSMENTS Encounter Date Diagnosis Assessment Notes Treatment Notes Treatment Clinical Notes 05/13/2024 COVID-19 (ICD-10 - U07.1) PLAN OF TREATMENT Medication Medication Name Sig Start Date Stop Date Notes Paxlovid (300/100) 20 x 150 MG & 10 x 100MG 3 tablets Orally Twice a day for 5 day(s) 05/13/2024 Next Appt Details Provider Name:Pop You ier, 10/07/2024 09:30:00 AM, [address] [place] [address], [address], [place], [place], [phone], Progress Notes * Examination Category Sub-Category Detail [...]
--- OUTSIDE RECORDS SUMMARY | 2024-10-06 11:55 | XMS_ITS ---
Author Organization Pop Cleveland MD Address [address] [place] [phone] Care Team Providers Care Cardiac Cath Technologist Name Role Phone Pop Cleveland Primary Care Provider REASON FOR VISIT ER visit rec'd Encounters Encounter Location Date Provider Diagnosis Pop Cleveland MD [address] [facility] [address] [place], [place] [phone] 05/02/2024 Pop Cleveland PLAN OF TREATMENT Next Appt Details Provider Name:Pop You ier, 10/07/2024 09:30:00 AM, [address] [place] [address], [address], [place], [place], [phone],
--- OUTSIDE RECORDS SUMMARY | 2024-10-06 11:55 | XMS_ITS ---
Author Organization [facility] Address [address] [place] [address] Care Team Providers Care All Terrain Vehicle Racer Name Role Phone Pop Cleveland MD Primary Care Provider Bob Mejia [phone] ALLERGIES No Known Allergies REASON FOR VISIT [...] screening (Z12.11) Active confirmed Colon cancer screening (767823226) Problem Chronic GERD (K21.9) Active confirmed Gastroesophagea l reflux disease (disorder) (164635567) VITAL SIGNS BMI 29.86 kg/m2 09/28/2024 Blood pressure systolic 000 mm Hg 09/28/20 24 Blood pressure diastolic 00 mm Hg 024 Height 71 in 09/28/2024 Temperature 97.8 degrees Fahrenheit 09/28/20 24 Weight 214 lb 2 oz lbs 09/28/2024 Encounters Encounter Location Date Provider Diagnosis [facility] [address] [place] [phone] 09/28/2024 Bob Guillen Colon cancer screeni ng [...] prn, Reason: Provider Name:Bob Guillen , 10/10/2024 08:40:00 AM, [address] [place] [address], [phone], Progress Notes * Examination Category Sub-Category Detail [...]
--- OUTSIDE RECORDS SUMMARY | 2024-10-06 11:55 | XMS_ITS | Patient Health Record ---
Author Organization [facility] Address [address] [place] [address] Care Team Providers Care Candy Supervisor Name Role Phone Megha LEHMAN, Pop Primary Care Provider Bob Mejia Unavailable [phone] ALLERGIES No Known Allergies REASON FOR REFERRAL [...] screening (Z12.11) Active confirmed Colon cancer screening (179170973) Problem Encounter for screening for malignant neoplasm of colon (Z12.11) Active confirmed 230461557 Problem Hx of adenomatous colonic polyps (Z86.010) Active confirmed 498477813 Problem Abdominal pain, right upper quadrant (R10.11) Active confirmed 378401632 Problem Pre-procedural examination (Z01.818) Active confirmed 544469580215940 Problem Chronic GERD (K21.9) Active confirmed Gastroesophagea l reflux disease (disorder) (676202259) VITAL SIGNS Temperature 97.8 degrees Fahrenheit 09/28/2024 Blood pressure diastolic 00 mm Hg 09/28/2024 Height 71 in 09/28/2024 Blood pressure systolic 000 mm Hg 09/28/2024 Weight 214 lb 2 oz lbs 09/28/2024 BMI 29.86 kg/m2 09/28/2024 Encounters Encounter Location Date Provider Diagnosis [facility] [address] [facility] [address] [place] [address] 09/28/2024 Bob Guillen Colon cancer screeni ng [...] Appt Details Provider Name:Bob Guillen , 10/10/2024 08:40:00 AM, [address] [facility] , [place], [place], [phone], Insurance Providers Payer Name Payer Address Payer Phone Subscriber Number Group Number Insured Name Patient Relationship to Insured Coverage Start Date Coverage End Date [facility] [address] [place] [address] [id number] CHELITA JAMISON Self - patient is the insured MEDICAL (GENERAL) HISTORY Medical History History ICD Code Colonoscopy 3-17-2007-1 smal l tubular adenoma removed; also noted were small internal hemorrhoids and occasional diverticulosis; colonoscopy in 11/2013-small tubular adenoma removed IBS Hx of a bleeding ulcer which required tr ansfusions in high school. Denies CO,DM,CVA,Lung disease,renal dise ase Chronic right upper quadrant discomfort with a negative gallbladder ultrasound in 2015 Colonoscopy 07/2019 with a small tubular adenoma HTN Malignant melanoma on scalp 2022 Surgical History Surgery Date(Month/Year) Left shoulder Removal of malignant melanoma from scalp in 09/2023
--- OUTSIDE RECORDS SUMMARY | 2024-10-06 11:56 | XMS_ITS | Patient Health Record ---
Author Organization Pop Cleveland MD Address [address] [place], [place] [phone] Care Team Providers Care Tax Services Specialist Name Role Phone Pop Cleveland Primary Care Provider ALLERGIES No Known Allergies RESULTS Component Value Reference Range Notes Complete Blood Count Auto Di ff Reviewed date:09/29/2024 04:43:11 PM Interpretation: Performing Lab:[facility], [address] [place] [phone] Notes/Report: White Blood Count 6.4 4.8-10.8 X10*3/uL [...] NRBC Abs Auto 0.000 0.0-0.012 X10*3/uL Comprehensive Burke. Panel Fa st Reviewed date:09/29/2024 04:42:33 PM Interpretation: Performing Lab:[facility], [address] [place] [phone] Notes/Report: Sodium 142 135-145 mmol/L Potassium 4.3 [...] Panel Reviewed date:09/29/2024 04:43:23 PM Interpretation: Performing Lab:[facility], [address] [place] [phone] Notes/Report: Triglycerides 488 <150 mg/dL Desirable Triglyceride: [...] (Free>4and<10) Reviewed date:09/29/2024 04:42:40 PM Interpretation: Performing Lab:[address] [phone] Notes/Report: PSA,Total (Free>4and<10) 1.32 0.00-4.00 ng/mL A [...] Random Reviewed date:09/29/2024 04:42:47 PM Interpretation: Performing Lab:[facility], [address] [place] [phone] Notes/Report: Creatinine Urine 101.61 Microalbumin Urine 5.0 Microalbum/Creatinine Ratio Ur 4.9 <30 ug/mg cr Albumin/Creatinine Ratio Reference Ranges: Normal: < 30 ug/mg creatinine Microalbuminuria: 30 - 300 ug/mg creatinine Clinical Albuminuria: > 300 ug/mg creatinine Hemoglobin A1c Reviewed date:09/29/2024 04:42:24 PM Interpretation: Performing Lab:[facility], [address] [place] [phone] Notes/Report: Hemoglobin A1c % 5.6 <6.0 % [...] average glucose, using the formula of the U5Q-Ifvgnnu Average Glucose study (ADAG), Diabetes Care, Vol.31,#8, May. 2007 UA ClnCatch+Micro w/rflx Cul t Reviewed date:09/29/2024 04:43:46 PM Interpretation: Performing Lab:[facility], [address] [place] [phone] Notes/Report: Urine, Clean Catch Color Urine Yellow Appearance Urine Clear PH 5.5 5.0-9.0 Glucose Urine UA Negative Negative mg/dL Urine Blood Negative Negative Specific [place] - Urine 1.015 1.005-1.025 Urine Protein Negative Neg-Trace mg/dL Urine Ketones Negative Negative mg/dL Nitrite Urine Negative Negative Leukocyte Esterase Urine Negative Negative RBC Urine 0-2 0-2 /HPF WBC Urine 0-5 0-5 /HPF Squamous Epithelial Cell Urine 0-2 0-2 /HPF Bacteria Urine None Seen None Seen Hyaline Casts Urine 0-2 0-2 /LPF REASON FOR REFERRAL No Information MEDICATIONS Medication [...] Vaccine Route Administration Date Status Comme nts Flu Vaccine Unknown 08/02/2013 Administered Given at wo rk; [facility] Flu Vaccine Unknown 07/18/2014 Administered [facility] Fluarix Quadrivalent Unknown 06/30/2016 Administered [facility] Shingrix IM Intramuscular 07/02/2018 Administered Shingrix [...] Problem Lumbar disc disease (M51.9) Active confirmed 336869325 Problem Essential hypertension (I10) Active confirmed Essential hypertension (39631877) Problem Prediabetes (R73.09) Active confirmed Prediabetes (912742494) Problem High triglycerides (E78.1) Active confirmed 910858836 Problem Cervical disc disease (M50.90) Active confirmed 510765435 Problem Sciatica of left side (M54.32) Active confirmed 71663237 Problem 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 confirmed 745835200 Problem Renal cyst (N28.1) Active confirmed 498752363 Problem Kidney cyst, acquired (N28.1) Active confirmed 725223972 Problem 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) Active confirmed 4887329034036 Problem Skin melanoma (C43.9) Active confirmed 57443493 VITAL SIGNS Blood pressure diastolic 70 mm [...] Date Provider Diagnosis Pop Cleveland MD [address] [place] [phone] 09/29/2024 Pop Cleveland Blood tests for routine general physical examination Z00.00 ; High triglycerides E78.1 ; Prediabetes R73.09 and Essential hypertension I10 Pop Cleveland MD [address] [place] [address] Drive [address] [place] [phone] 04/01/2024 Pop Cleveland Essential hypertension I10 and Skin melanoma C43.9 Pop Cleveland MD [address] [place] [address] [phone] 03/31/2024 Pop Cleveland MD [address] [place] [phone] 05/02/2024 Pop Cleveland MD [address] [place] [address] [address] [phone] 05/13/2024 Pop Cleveland COVID-19 U07.1 ASSESSMENTS Encounter Date Diagnosis Assessment Notes Treatment Notes Treatment Clinical Notes 09/29/2024 High triglycerides (ICD-10 - E78.1) 09/29/2024 Blood tests for routine general physical examination (ICD-10 - Z00.00) 04/01/2024 Essential hypertension (ICD-10 - I10) doing great on med, will continue current regiment 04/01/2024 Skin melanoma (ICD-1 0 - C43.9) need note from [facility]/ REQUEST MADE BY PHONE MESSAGE TO FAX THE OFFICE NOTES TO PCP 05/13/2024 COVID-19 (ICD-10 - U07.1) 09/29/2024 Prediabetes (ICD-10 - R73.09) 09/29/2024 Essential hypertension (ICD-10 - I10) PLAN OF TREATMENT Pending Test Test Name Order Date Electrocardiogram (EKG) 08/18/2019 Electrocardiogram (EKG) 02/22/2013 Electrocardiogram (EKG) 07/17/2017 Electrocardiogram (EKG) 08/12/2018 CARDIOVASCULAR STRESS TEST 09/20/2021 CT ABD & PELVIS WITH CONTRAST 03/03/2017 Next Appt Details Provider Name:Pop Laguerre Avelino ier, 10/07/2024 09:30:00 AM, [address] [facility], [address], [place], [place], [phone], Insurance Providers Payer Name Payer Address Payer Phone Subscriber Number Group Number Insured Name Patient Relationship to Insured Coverage Start Date Coverage End Date [employer] [address] [place], [place] [phone] [id number] Dario Albarran Self - patient is the insured MEDICAL (GENERAL) HISTORY Medical History History ICD Code colonoscopy 12/05/13, Dr. Donovan evangelista - 5 year f/u; Colonoscopy done 07/29/[address] Guillen - repeat 5 years ultrasound kidneys need no further follo w up
[2024-10-06 13:28] VITALS: BMI 29.8
--- NOTE | 2024-10-10 07:36 | P.CONAN_ITS ---
FORMERLY [facility], [facility] Past Medical History Medical History Bleeding ulcer IBS (irritable bowel syndrome) Tubular adenoma of colon HTN (hypertension) Malignant melanoma Functional capacity: uses cane/walker Surgical History Surgical History History of tonsillectomy H/O colonoscopy Hx of melanoma excision Hx of shoulder surgery History of Problems with Anesthesia: No Social History Social History Patient Tobacco Use Status: Never used Tobacco Use of substances other than those prescribed or required for medical reasons: Yes Are you DNR?: No Advance Directives: No Advance Directives Information Provided: Yes Recently lost weight without trying: No Nutrition Risks: No Nutritional Risk Poor oral hygiene: No Meds Allergies Allergy/AdvReac Type Severity Reaction Status Date / Time No Known Allergies Allergy Verified 10/06/24 13:00 Home Medications ?Medication ?Instructions ?Recorded ?Confirmed ?Last Taken ?Type multivitamin 1 tab PO DAILY 10/06/24 10/06/24 Unknown History valsartan 80 mg tablet 80 mg PO DAILY 10/06/24 10/06/24 10/10/24 History Exam Height,Weight and Vital Signs: Height 5 ft 11 in Weight 97.069 kg Airway Mallampati Class: III TM Dist: >3cm Neck ROM: Full Loose/Missing/Broken Teeth: No Heart: RRR Lungs: CTA Assessment and Plan Assessment Anesthesia Assessment: Anesthesia Plan Discussed and Chart Reviewed Final Anesthetic Review History of Problems with Anesthesia: No NPO: Yes ASA Class: II Final Preanesthetic Review: Meds/Allgs Chart Reviewed, Consent Obtained/Reviewed and Anes Risks/Benef Reviewed Patient Risk: Low Procedure Risk: Intermediate Anesthetic Plan Anesthetic Plan: MAC: Disposition: Standard PACU
--- OUTSIDE RECORDS SUMMARY | 2024-10-10 07:43 | XMS_ITS ---
Author Organization Pop Cleveland MD Address [address] [place], [place] [address] Care Team Providers Care Hydrogen Operator Name Role Phone oPp Cleveland Primary Care Provider ALLERGIES No Known Allergies RESULTS Component Value Reference Range Notes Electrocardiogram (EKG) Reviewed date:10/07/2024 03:19:23 PM Interpretation: Performing Lab: Notes/Report: 0 REASON FOR REFERRAL Reason pain right shoulder Diagnosis 1 Pain in right should er (M25.511) Referral Organization Pop Cleveland MD Referring Provider First Name Pop Referring Provider Last Name Megha Referring Provider Speciality Internal M edicine Referred Provider JACQUE ABREU Referred Provider Specialty Orthopedic S urgery General Notes Vida Hayes 11:38:12 AM EST > info faxed Referral Priority Routine REASON FOR VISIT ANNUAL EXAM MEDICATIONS Medication SIG (Take, Route, Frequency, Duration) Notes Start Date End Date Status Valsartan 80 MG TAKE 1 TABLET BY MOUTH EVERY DAY Active Ventolin HFA * 108 (90 Base) MCG/ACT 2 puffs as needed Inhalation every 4 hrs for 30 day(s) 06/28/2018 Not-Taking HYDROcodone-Acetaminophen 5-325 MG 1 tablet as needed Orally every 6 hrs for 5 days 09/20/2021 Not-Taking Cyclobenzaprine HCl 5 MG 1 tablet as nee ded Orally Three times a day for 10 days 04/12/2019 Not-Taking LORazepam 1 MG 1 tablet at bedtime as needed Orally Once a day for 4 days 09/20/2021 Not-Taking SOCIAL HISTORY Tobacco Use: Social History Observation Description Date Details (start date - stop date) Never Smoker NA - NA Sex Assigned At : Social History Observation Description Sex Assigned At Unknown Tobacco Use/Smoking Question Answer Notes Patient is a nonsmoker Additional Findings: Tobacco Non-User Cu rrent non-smoker, currently using no form of tobacco Alcohol Screen Question Answer Notes Did you have a drink contain ing alcohol in the past year? Yes How often did you have a dri nk containing alcohol in the past year? 4 or more times a week (4 points) How many drinks did you have on a typical day when you were drinking in the past year? 1 or 2 drinks (0 point) How often did you have 6 or more drinks on one occasion in the past year? Never (0 point) Points 4 Interpretation Positive PROBLEMS Problem Type ICD Code Onset Dates Problem Status W/U Status Risk SNOMED Code Notes Problem Other chronic pain (G89.29) Active confirmed 83955833 Problem Lymphocytosis (D72.820) Active confirmed 07974480 Problem Elevated cholesterol with high triglycerides (E78.2) Active confirmed 283615368 VITAL SIGNS BMI 29.43 kg/m2 10/07/2024 Blood pressure systolic 118 mm Hg 10/07/20 24 Blood pressure diastolic 76 mm Hg 024 Height 71 in 10/07/2024 Weight 211 lbs 10/07/2024 weight is up 6 pounds since 05-13-24 Encounters Encounter Location Date Provider Diagnosis Pop Cleveland MD [address] [place] [address] [place] [id number] 10/07/2024 Pop Cleveland Family history of abdominal aortic aneurysm (AAA) Z82.49 ; Annual physical exam Z00.00 ; Right tennis elbow M77.11 ; Plantar fasciitis of right foot M72.2 ; Pain in right shoulder M25.511 ; Other chronic pain G89.29 ; Elevated LFTs R79.89 ; Lymphocytosis D72.820 ; Elevated cholesterol with high triglycerides E78.2 ; Colon cancer screening Z12.11 ; Depression screening Z13.31 and Essential hypertension I10 ASSESSMENTS Encounter Date Diagnosis Assessment Notes Treatment Notes Treatment Clinical Notes 10/07/2024 Family history of abdominal aortic aneurysm (AAA) (ICD-10 - Z82.49) us order faxed to [facility] [place]pt 10/07/2024 Annual physical exam (ICD-10 - Z00.00) labs reviewed and discussed with patient 10/07/2024 Right tennis elbow (ICD-10 - M77.11) advised to where tennis elbow brace and ice 10/07/2024 Plantar fasciitis of right foot (ICD-10 - M72.2) advised to use arch supports 10/07/2024 Pain in right shoulder (ICD-10 - M25.511) referral to [facility] 10/07/2024 Other chronic pain (ICD-10 - G89.29) 10/07/2024 Elevated LFTs (ICD-1 0 - R79.89) decrease etoh and repeat lft 10/07/2024 Lymphocytosis (ICD-1 0 - D72.820) repeat cbc in 2 mo 10/07/2024 Elevated cholesterol with high triglycerides (ICD-10 - E78.2) advised on diet and exercise 10/07/2024 Colon cancer screening (ICD-10 - Z12.11) guaiac negative 10/07/2024 Depression screening (ICD-10 - Z13.31) negative screen 10/07/2024 Essential hypertension (ICD-10 - I10) stable, will continue current regiment PLAN OF TREATMENT Medication Medication Name Sig Start Date Stop Date Notes Valsartan 80 MG TAKE 1 TABLET BY MOUTH EVERY DAY Treatment Notes Assessment Notes Family history of abdominal aortic aneurysm (AAA) us order faxed to [facility] [place] Annual physical exam labs reviewed and d iscussed with patient Right tennis elbow advised to where ten nis elbow brace and ice Plantar fasciitis of right foot advised to use arch supports Pain in right shoulder referral to [facility] Elevated LFTs decrease etoh and re peat lft Lymphocytosis repeat cbc in 2 mo Elevated cholesterol with high triglycer ides advised on diet and exercise Colon cancer screening guaiac negative Depression screening negative screen Essential hypertension stable, will cont inue current regiment Pending Test Test Name Order Date US ABD AORTA 10/07/2024 Future Test Test Name Order Date Complete Blood Count Auto Diff Liver Panel 12/08/2024 Lipid Panel 12/08/2024 Referrals Referral Date Details pain right shoulder, [facility] Next Appt Details Provider Name:Pop house, 10/09/2025 07:15:00 AM, [address] [facility], [address], [place], [place], [phone], Provider Name:Pop You harsh, 10/16/2025 10:30:00 AM, [address], [address], [place], [place], [phone], Progress Notes * Examination Category Sub-Category Detail Notes General Examination GENERAL APPEARANCE: well dev eloped, well nourished, in no acute distress HEAD: normocephalic, atrau matic EYES: pupils equal, round, reactive to light and accommodation, sclera non- icteric EARS: normal THROAT: clear NECK/THYROID: neck supple, full ra nge of motion, no cervical lymphadenopathy, no bruits HEART: regular rate and rhy thm, S1, S2 normal, no murmurs LUNGS: clear to auscultatio n bilaterally ABDOMEN: soft, nontender, non distended, bowel sounds present, normal, no organomegaly , no masses palpable NEUROLOGIC: nonfocal, motor stre ngth normal upper and lower extremities, sensory exam intact SKIN: warm and dry, no michelle picious lesions EXTREMITIES: no clubbing, cyanosi s, or edema MALE GENITOURINARY: not examined RECTAL EXAM: normal tone, no exte rnal hemorrhoids, no masses palpable, prostate normal, stool guaiac negative ORAL CAVITY: mucosa moist History and Physical Notes * HPI (History of Present Illness) Category Sub-Category Detail Notes Depression Screening PHQ-9 Little inte rest or pleasure in doing things: Not at all Feeling down, depressed, or hopeless: No t at all Trouble falling or staying asleep, or sl eeping too much: Not at all Feeling tired or having little energy: N ot at all Poor appetite or overeating: Not at all Feeling bad about yourself o r that you are a failure, or have let yourself or your family down: Not at all Trouble concentrating on thi ngs, such as reading the newspaper or watching television: Not at all Moving or speaking so slowly that other people could have noticed; or the opposite, being so fidgety or restless that you have been moving around a lot more than usual: Not at all Thoughts that you would be b gabo off or of hurting yourself in some way: Not at all Total Score: 0 Interpretation and Intervention Depression Susye shi Findings: Negative Follow-Up for Depression: : review of PH Q-9 found negative result, no follow-up needed SDOH Questions SDOH Questions In the past year have you been worried about losing housing?: No In the past year have you or any family members you live with been unable to get any of the following when it was really needed? Check all that apply:: None Fall Risk History Have you had any falls with injury in the past year?: No Have you had two or more falls in the year?: No Communication Needs Communication Needs Does the patient have a hearing impairment: No Does the patient have a vision impairmen t?: Yes ?If yes, what is the vision impairment?: Glasses Does the patient have a cognition impair ment?: No Consultation Request Notes Referral Date Referring Provider Referred Provider Not burton 10/07/2024 Pop Cleveland, ORTHOPEDICS pain right shoulder
--- OUTSIDE RECORDS SUMMARY | 2024-10-10 07:44 | XMS_ITS | Patient Health Record ---
Author Organization Pop Cleveland MD Address [address] [place], [place] [id number] Care Team Providers Care Editorial Director Name Role Phone Pop Cleveland Primary Care Provider ALLERGIES No Known Allergies RESULTS Component Value Reference Range Notes Complete Blood Count Auto Di ff Reviewed date:09/29/2024 04:43:11 PM Interpretation: Performing Lab:[facility], [address] [place] [phone] Notes/Report: White Blood Count 6.4 4.8-10.8 X10*3/uL [...] NRBC Abs Auto 0.000 0.0-0.012 X10*3/uL Comprehensive [place]. Panel Fa st Reviewed date:09/29/2024 04:42:33 PM Interpretation: Performing Lab:[facility], [address] [place] [phone] Notes/Report: Sodium 142 135-145 mmol/L Potassium 4.3 [...] Panel Reviewed date:09/29/2024 04:43:23 PM Interpretation: Performing Lab:[facility], [address] [place] [phone] Notes/Report: Triglycerides 488 <150 mg/dL Desirable Triglyceride: [...] (Free>4and<10) Reviewed date:09/29/2024 04:42:40 PM Interpretation: Performing Lab:[address] [phone] Notes/Report: PSA,Total (Free>4and<10) 1.32 0.00-4.00 ng/mL A [...] Random Reviewed date:09/29/2024 04:42:47 PM Interpretation: Performing Lab:[facility], [address] [place] [phone] Notes/Report: Creatinine Urine 101.61 Microalbumin Urine 5.0 Microalbum/Creatinine Ratio Ur 4.9 <30 ug/mg cr Albumin/Creatinine Ratio Reference Ranges: Normal: < 30 ug/mg creatinine Microalbuminuria: 30 - 300 ug/mg creatinine Clinical Albuminuria: > 300 ug/mg creatinine Hemoglobin A1c Reviewed date:09/29/2024 04:42:24 PM Interpretation: Performing Lab:[facility], [address] [place] [phone] Notes/Report: Hemoglobin A1c % 5.6 <6.0 % [...] average glucose, using the formula of the W1R-Oojrots Average Glucose study (ADAG), Diabetes Care, Vol.31,#8, May. 2007 UA ClnCatch+Micro w/rflx Cul t Reviewed date:09/29/2024 04:43:46 PM Interpretation: Performing Lab:[facility], [address] [place] [phone] Notes/Report: Urine, Clean Catch Color Urine Yellow Appearance Urine Clear PH 5.5 5.0-9.0 Glucose Urine UA Negative Negative mg/dL Urine Blood Negative Negative Specific [place] - Urine 1.015 1.005-1.025 Urine Protein Negative Neg-Trace mg/dL Urine Ketones Negative Negative mg/dL Nitrite Urine Negative Negative Leukocyte Esterase Urine Negative Negative RBC Urine 0-2 0-2 /HPF WBC Urine 0-5 0-5 /HPF Squamous Epithelial Cell Urine 0-2 0-2 /HPF Bacteria Urine None Seen None Seen Hyaline Casts Urine 0-2 0-2 /LPF Electrocardiogram (EKG) Reviewed date:10/07/2024 03:19:23 PM Interpretation: Performing Lab: Notes/Report: REASON FOR REFERRAL Reason pain right shoulder Diagnosis 1 Pain in right should er (M25.511) Referral Organization Pop Cleveland MD Referring Provider First Name Pop Referring Provider Last Name Megha Referring Provider Speciality Internal M edicine Referred Provider JACQUE ABREU Referred Provider Specialty Orthopedic S urgery General Notes Vida Hayes 11:38:12 AM EST > info faxed Referral Priority Routine MEDICATIONS Medication SIG (Take, Route, Frequency, Duration) [...] a day for 4 days 09/20/2021 Not-Taking IMMUNIZATIONS Vaccine Route Administration Date Status Comme nts Flu Vaccine Unknown 08/02/2013 Administered Given at wo rk; [facility] Flu Vaccine Unknown 07/18/2014 Administered [facility] Fluarix Quadrivalent Unknown 06/30/2016 Administered [facility] Shingrix IM Intramuscular 07/02/2018 Administered Shingrix [...] W/U Status Risk SNOMED Code Notes Problem Lymphocytosis (D72.820) Active confirmed 94394083 Problem Other chronic pain (G89.29) Active confirmed 75681980 Problem Lumbar disc disease (M51.9) Active confirmed 538413741 Problem Essential hypertension (I10) Active confirmed Essential hypertension (09232878) Problem Prediabetes (R73.09) Active confirmed Prediabetes (918919058) Problem High triglycerides (E78.1) Active confirmed 914647242 Problem Cervical disc disease (M50.90) Active confirmed 012289520 Problem Sciatica of left side (M54.32) Active confirmed 17072209 Problem 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 confirmed 401122622 Problem Renal cyst (N28.1) Active confirmed 327663791 Problem Kidney cyst, acquired (N28.1) Active confirmed 212168654 Problem 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) Active confirmed 9002288886354 Problem Elevated cholesterol with high triglycerides (E78.2) Active confirmed 003701981 Problem Skin melanoma (C43.9) Active confirmed 56318506 VITAL SIGNS Blood pressure diastolic 76 mm Hg 10/07/2024 donovan ght is up 6 pounds since 05-13-24 Height 71 in 10/07/2024 weight is up 6 pounds since 05-13-24 Blood pressure systolic 118 mm Hg 10/07/2024 weig ht is up 6 pounds since 05-13-24 Weight 211 lbs 10/07/2024 weight is up 6 pounds since 05-13-24 BMI 29.43 kg/m2 10/07/2024 weight is up 6 pounds since 05-13-24 Encounters Encounter Location Date Provider Diagnosis Pop Cleveland MD [address] [place], [place] [phone] 10/07/2024 Pop Cleveland Family history of abdominal [...] Depression screening Z13.31 and Essential hypertension I10 Pop Cleveland MD [address] [place], [place] [id number] 09/29/2024 Pop Cleveland Blood tests for routine general physical examination Z00.00 ; High triglycerides E78.1 ; Prediabetes R73.09 and Essential hypertension I10 Pop Cleveland MD [address] [place] [id number] 04/01/2024 Pop Cleveland Essential hypertension I10 and Skin melanoma C43.9 Pop Cleveland MD [address] [place] [id number] 03/31/2024 Pop Cleveland MD [address] [place] [id number] 05/02/2024 Pop Cleveland MD [address] [place] [id number] 05/13/2024 Pop Cleveland COVID-19 U07.1 ASSESSMENTS Encounter Date Diagnosis Assessment Notes Treatment Notes Treatment Clinical Notes 10/07/2024 Annual physical exam (ICD-10 - Z00.00) labs reviewed and discussed with patient 10/07/2024 Family history of abdominal aortic aneurysm (AAA) (ICD-10 - Z82.49) us order faxed to [facility] dept 09/29/2024 High triglycerides (ICD-10 - E78.1) 09/29/2024 Blood tests for routine general physical examination (ICD-10 - Z00.00) 04/01/2024 Essential hypertension (ICD-10 - I10) doing great on med, will continue current regiment 04/01/2024 Skin melanoma (ICD-1 0 - C43.9) need note from [facility]/ REQUEST MADE BY PHONE MESSAGE TO FAX THE OFFICE NOTES TO PCP 05/13/2024 COVID-19 (ICD-10 - U07.1) 10/07/2024 Right tennis elbow (ICD-10 - M77.11) advised to where tennis elbow brace and ice 09/29/2024 Prediabetes (ICD-10 - R73.09) 10/07/2024 Plantar fasciitis of right foot (ICD-10 - M72.2) advised to use arch supports 09/29/2024 Essential hypertension (ICD-10 - I10) 10/07/2024 Pain in right shoulder (ICD-10 - [...] will continue current regiment PLAN OF TREATMENT Pending Test Test Name Order Date Electrocardiogram (EKG) 02/22/2013 Electrocardiogram (EKG) 07/17/2017 Electrocardiogram (EKG) 08/12/2018 Electrocardiogram (EKG) 08/18/2019 CARDIOVASCULAR STRESS TEST 09/20/2021 CT ABD & PELVIS WITH CONTRAST 03/03/2017 US ABD AORTA 10/07/2024 Future Test Test Name Order Date Complete Blood Count Auto Diff Liver Panel 12/08/2024 Lipid Panel 12/08/2024 Next Appt Details Provider Name:Pop You ier, 10/09/2025 07:15:00 AM, [address] [place] [address], [address] [place] [address], [phone], Provider Name:Pop You ier, 10/16/2025 10:30:00 AM, [address] [place] [address], [address] [place] [address], [phone], Insurance Providers Payer Name Payer Address Payer Phone Subscriber Number Group Number Insured Name Patient Relationship to Insured Coverage Start Date Coverage End Date [employer] [address] [place], [place] [id number] Dario Albarran Self - patient is the insured MEDICAL (GENERAL) HISTORY Medical History History ICD Code colonoscopy 12/05/13, Dr. Donovan evangelista - 5 year f/u; Colonoscopy done 07/29/[address] Guillen - repeat 5 years ultrasound kidneys need no further follo w up
--- OUTSIDE RECORDS SUMMARY | 2024-10-10 07:44 | XMS_ITS ---
Author Organization [facility] Address [address] [place] [address] Care Team Providers Care Textile Designs Sales Representative Name Role Phone Pop Cleveland MD Primary Care Provider Bob Mejia [phone] ALLERGIES No Known Allergies REASON FOR VISIT [...] screening (Z12.11) Active confirmed Colon cancer screening (266696495) Problem Chronic GERD (K21.9) Active confirmed Gastroesophagea l reflux disease (disorder) (265197066) VITAL SIGNS BMI 29.86 kg/m2 09/28/2024 Blood pressure systolic 000 mm Hg 09/28/20 24 Blood pressure diastolic 00 mm Hg 024 Height 71 in 09/28/2024 Temperature 97.8 degrees Fahrenheit 09/28/20 24 Weight 214 lb 2 oz lbs 09/28/2024 Encounters Encounter Location Date Provider Diagnosis [facility] [address] [place] [phone] 09/28/2024 Bob Guillen Colon cancer screeni ng [...] Provider Name:Bob Guillen , 10/10/2024 08:40:00 AM, [address] [place] [address], [phone], Progress Notes * Examination Category Sub-Category Detail [...]
--- OUTSIDE RECORDS SUMMARY | 2024-10-10 07:44 | XMS_ITS ---
Author Organization [facility] Address [address] [place] [address] Care Team Providers Care Security Engineer Name Role Phone Pop Cleveland MD Primary Care Provider Bob Mejai Unavailable [phone] REASON FOR VISIT SCREENING COLON, gerd Encounters Encounter Location Date Provider Diagnosis [facility] Outpatient [address] [place] [phone] 10/10/2024 Bob Guillen PLAN OF TREATMENT Next Appt Details Provider Name:Bob Guillen , 10/10/2024 08:40:00 AM, [address] [place] [address], [phone],
--- OUTSIDE RECORDS SUMMARY | 2024-10-10 07:44 | XMS_ITS ---
Author Organization Pop Cleveland MD Address [address] [place], [place] [phone] Care Team Providers Care School Fundraising Director Name Role Phone Pop Cleveland Primary Care Provider [phone] ALLERGIES No Known Allergies REASON FOR VISIT Covid tested positive today was in [place] returned 3 days ago, c/o chills fatigue , headache sore throat, cough muscle aches, congestion nauseau diarrhea x 2days, Video [phone] MEDICATIONS Medication SIG (Take, Route, Frequency, Duration) [...] Location Date Provider Diagnosis Pop Cleveland MD [address] [place] [address] [address] [place], [place] [phone] 05/13/2024 Pop Cleveland COVID-19 U07.1 ASSESSMENTS Encounter Date Diagnosis Assessment Notes Treatment Notes Treatment Clinical Notes 05/13/2024 COVID-19 (ICD-10 - U07.1) PLAN OF TREATMENT Medication Medication Name Sig Start Date Stop Date Notes Paxlovid (300/100) 20 x 150 MG & 10 x 100MG 3 tablets Orally Twice a day for 5 day(s) 05/13/2024 Next Appt Details Provider Name:Pop You ietriny, 10/09/2025 07:15:00 AM, [address] [place] [address], Suite [facility], [place], [place], [phone], Provider Name:Pop house, 10/16/2025 10:30:00 AM, [address] [place] [address], [place] [address], [place], [place], [phone], Progress Notes * Examination Category Sub-Category Detail Notes General Examination GENERAL APPEARANCE: alert, w ell hydrated, in no distress , male HEAD: normocephalic History and Physical Notes * HPI (History of Present Illness) Category Sub-Category Detail Notes Symptom(s) Telehealth Location of [facility] ider rendering services:: [address] [place] [address], [address] Location of patient:: at address [...]
--- OUTSIDE RECORDS SUMMARY | 2024-10-10 07:44 | XMS_ITS ---
Author Organization Pop Cleveland MD Address [address] [place], [place] [phone] Care Team Providers Care Mechanics Supervisor Name Role Phone Pop Cleveland Primary Care Provider RESULTS Component Value Reference Range Notes Complete Blood Count Auto Di ff Reviewed date:09/29/2024 04:43:11 PM Interpretation: Performing Lab:[facility], [address] [place] [phone] Notes/Report: White Blood Count 6.4 4.8-10.8 X10*3/uL [...] NRBC Abs Auto 0.000 0.0-0.012 X10*3/uL Comprehensive [place]. Panel Fa st Reviewed date:09/29/2024 04:42:33 PM Interpretation: Performing Lab:[facility], [address] [place] [phone] Notes/Report: Sodium 142 135-145 mmol/L Potassium 4.3 [...] Panel Reviewed date:09/29/2024 04:43:23 PM Interpretation: Performing Lab:[facility], [address] [place] [phone] Notes/Report: Triglycerides 488 <150 mg/dL Desirable Triglyceride: [...] (Free>4and<10) Reviewed date:09/29/2024 04:42:40 PM Interpretation: Performing Lab:[address] [phone] Notes/Report: PSA,Total (Free>4and<10) 1.32 0.00-4.00 ng/mL A [...] Random Reviewed date:09/29/2024 04:42:47 PM Interpretation: Performing Lab:[facility], [address] [place] [phone] Notes/Report: Creatinine Urine 101.61 Microalbumin Urine 5.0 Microalbum/Creatinine Ratio Ur 4.9 <30 ug/mg cr Albumin/Creatinine Ratio Reference Ranges: Normal: < 30 ug/mg creatinine Microalbuminuria: 30 - 300 ug/mg creatinine Clinical Albuminuria: > 300 ug/mg creatinine Hemoglobin A1c Reviewed date:09/29/2024 04:42:24 PM Interpretation: Performing Lab:[facility], [address] [place] [phone] Notes/Report: Hemoglobin A1c % 5.6 <6.0 % [...] average glucose, using the formula of the N7M-Ampozpj Average Glucose study (ADAG), Diabetes Care, Vol.31,#8, 2007 UA ClnCatch+Micro w/rflx Cul t Reviewed date:09/29/2024 04:43:46 PM Interpretation: Performing Lab:[facility], [address] [place] [phone] Notes/Report: Urine, Clean Catch Color Urine Yellow Appearance Urine Clear PH 5.5 5.0-9.0 Glucose Urine UA Negative Negative mg/dL Urine Blood Negative Negative Specific [place] - Urine 1.015 1.005-1.025 Urine Protein Negative [...] Location Date Provider Diagnosis Pop Cleveland MD [address] [place] [address] [place] [phone] 09/29/2024 Pop Cleveland Blood tests for routine [...] TREATMENT Next Appt Details Provider Name:Pop house, 10/09/2025 07:15:00 AM, [address] [place] [address], [address], [place], [place], [phone], Provider Name:Pop house, 10/16/2025 10:30:00 AM, [address] [place] [address] Drive, [address], [place], [phone],
--- OUTSIDE RECORDS SUMMARY | 2024-10-10 07:45 | XMS_ITS | Patient Health Record ---
Author Organization [facility] Address [address] [place] [address] Care Team Providers Care Garage Door Service Technician Name Role Phone Megha LEHMAN, Pop Primary Care Provider Bob Mejia Unavailable [phone] ALLERGIES No Known Allergies REASON FOR REFERRAL [...] screening (Z12.11) Active confirmed Colon cancer screening (647703680) Problem Encounter for screening for malignant neoplasm of colon (Z12.11) Active confirmed 001292744 Problem Hx of adenomatous colonic polyps (Z86.010) Active confirmed 273351244 Problem Abdominal pain, right upper quadrant (R10.11) Active confirmed 640664671 Problem Pre-procedural examination (Z01.818) Active confirmed [id number] Problem Chronic GERD (K21.9) Active confirmed Gastroesophagea l reflux disease (disorder) (698708260) VITAL SIGNS Temperature 97.8 degrees Fahrenheit 09/28/2024 Blood pressure diastolic 00 mm Hg 09/28/2024 Height 71 in 09/28/2024 Blood pressure systolic 000 mm Hg 09/28/2024 Weight 214 lb 2 oz lbs 09/28/2024 BMI 29.86 kg/m2 09/28/2024 Encounters Encounter Location Date Provider Diagnosis [facility] [address] [place] [phone] 10/10/2024 Bob Guillen [facility] [address] [place] [address] 09/28/2024 Bob Guillen Colon cancer screening Z12.11 ; Chronic GERD K21.9 and Hx [...] COLONOSCOPY 09/28/2024 Next Appt Details Provider Name:Bob Pérez Mindy , 10/10/2024 08:40:00 AM, [address] [place] [address] , [place], [place], [phone], Insurance Providers Payer Name Payer Address Payer Phone Subscriber Number Group Number Insured Name Patient Relationship to Insured Coverage Start Date Coverage End Date [facility] [address] [place] [address] [id number] CHELITA JAMISON Self - patient is the insured MEDICAL (GENERAL) HISTORY Medical History History ICD Code Colonoscopy 3--2007- smal l tubular adenoma removed; also noted were small internal hemorrhoids and occasional diverticulosis; colonoscopy in 11/2013-small tubular adenoma removed IBS Hx of a bleeding ulcer which required tr ansfusions in high school. Denies [place],DM,CVA,Lung disease,renal dise ase Chronic right upper quadrant discomfort with a negative gallbladder ultrasound in 2015 Colonoscopy 07/2019 with a small tubular adenoma HTN Malignant melanoma on scalp 2022 Surgical History Surgery Date(Month/Year) Left shoulder Removal of malignant melanoma from scalp in 09/2023
[2024-10-10 07:48] VITALS: BMI 29.6
[2024-10-10 07:59] VITALS: BP 118/88; PULSE 102; RESP 16; TEMP 36.6; O2SAT 95
[2024-10-10] MEDS: Lactated Ringers 1,000 ML 50 ML IVCONT (08:08)
[2024-10-10 10:15] VITALS: BP 90/54; PULSE 77; RESP 18; TEMP 36.1; O2SAT 97
--- NOTE | 2024-10-10 10:18 | P.BOP_ITS ---
Brief Operative Note Date of Service: 10/10/24 Pre-op diagnosis: GERD, Screening Post-op diagnosis: other (Esophagitis, Colon polyp) Procedure: EGD with biopsies, Colonoscopy to the cecum with bx/removal of polyp Surgeon: Bob Guillen MD Anesthesia: MAC Was an Firebrick And Refractory Tile Repairer used for this Procedure?: No Estimated blood loss (mL): 2.0 Pathology: other (A. EG Junction at 39cm B. Polyp at 50cm) Condition: stable Disposition: PACU
[2024-10-10 10:30] VITALS: BP 97/61; PULSE 79; RESP 18; TEMP 36.2; O2SAT 93
--- NOTE | 2024-10-10 10:34 | OP_ITS ---
DATE OF SERVICE: 10/10/2024 SURGEON: Bob Guillen MD INDICATIONS: The patient presents for evaluation of gastroesophageal reflux, personal history of tubular adenoma of the colon, and need for colorectal cancer screening. Full consent was obtained from him for this, including risks of bleeding and perforation. PREOPERATIVE DIAGNOSIS: POSTOPERATIVE DIAGNOSIS: PROCEDURE PERFORMED: ESTIMATED BLOOD LOSS: COMPLICATIONS: ANESTHESIA: Monitored anesthesia care. ASSISTANTS: SPECIMENS: PREOPERATIVE DIAGNOSES: Gastroesophageal reflux, personal history of tubular adenomas of the colon, colorectal cancer screening. POSTOPERATIVE DIAGNOSES: Gastroesophageal reflux, personal history of tubular adenomas of the colon, colorectal cancer screening, esophagitis, hiatal hernia, colon polyp, diverticulosis, and internal hemorrhoids. PROCEDURES PERFORMED: Esophagogastroduodenoscopy with biopsies, and colonoscopy to the cecum with biopsy and removal of polyp. DESCRIPTION OF PROCEDURE: The patient was placed in the left lateral decubitus position. The Olympus video gastroscope was passed in the posterior oropharynx and upper esophagus under direct vision. The scope was passed slowly into the distal esophagus. The gastroesophageal junction appeared at 39 cm. There was an area of edema, less than 1 cm ulceration with some surrounding edema and erosion, and some slight irregularity consistent with possible Hopper's mucosa. The scope entered the stomach. There was a small hiatal hernia. The scope was advanced to the pylorus, and the duodenum was cannulated at the descending portion. The duodenum including the bulb appeared normal without mass or ulceration. The scope was withdrawn back in the stomach. The gastric antrum and body appeared normal with good peristalsis. The scope was retroflexed visualizing the proximal stomach carefully, which appeared normal, without any sign of mass or ulceration. The scope was straightened and withdrawn back to the esophagus. Multiple biopsies were obtained from the area of ulceration and inflammation at the EG Junction.. Proximal to this, the esophageal mucosa appeared normal. The scope was withdrawn from the patient. He was turned around for the colonoscopy. The digital rectal exam revealed no abnormalities. The Olympus video pediatric colonoscope was entered into the rectum, advanced to the cecum. Once in the cecum, I did identify normal appearing cecal pouch with appendiceal orifice and a normal-appearing ileocecal valve. There was transillumination of light deep in the right lower quadrant. The entire cecum and ileocecal valve appeared normal. The scope was slowly withdrawn assessing all mucosal surfaces carefully. Preparation was excellent. At 50 cm, was a flat, approximately 6 mm polyp, which was biopsied and completely removed with cold biopsy forceps. I did not visualize any other polyps, colitis, nor angiodysplasia. There was a moderate amount of sigmoid diverticulosis. In the rectum, scope was retroflexed visualizing internal hemorrhoids, but no other pathology. The rectal mucosa appeared normal. The scope was straightened and withdrawn from the patient. He tolerated both procedures well and was returned to the recovery area in stable condition. IMPRESSION: 1. Erosive esophagitis. 2. Hiatal hernia. 3. Colon polyp. 4. Diverticulosis. 5. Internal hemorrhoids. PLAN: The results of the biopsies will be checked. I would recommend a repeat colonoscopy in 5 years. I will start him on omeprazole 40 mg daily in regard to the upper endoscopy findings. He does describe taking Pepto-Bismol every day for indigestion. Depending on the results of biopsies and his clinical course, we may want to have him undergo repeat upper endoscopy in the next 2 to 3 months to assess for healing. He will be seen in followup as well. He was advised not to use any aspirin and NSAIDs for 1 week. This has been discussed with his . MD ELA Sow/PATRICIA / [id number] MTDLisa
[2024-10-10 10:45] VITALS: BP 105/70; PULSE 79; RESP 18; TEMP 36.2; O2SAT 94
== END 2024-10-10 11:07 | disposition home or self-care (01) ==
PROVIDERS: PCP Internal Medicine; Visit Provider Internal Medicine
PROC: (CPT 45380; principal; 2024-10-10 08:40)
DX: Z12.11 Encounter for screening for malignant neoplasm of colon (principal); Z86.0101 Personal history of adenomatous and serrated colon polyps; K63.5 Polyp of colon; K57.30 Diverticulosis of large intestine without perforation or abscess without bleeding; K64.8 Other hemorrhoids; K58.9 Irritable bowel syndrome, unspecified; K21.9 Gastro-esophageal reflux disease without esophagitis; K20.80 Other esophagitis without bleeding; K44.9 Diaphragmatic hernia without obstruction or gangrene; I10 Essential (primary) hypertension; Z85.820 Personal history of malignant melanoma of skin; Z87.11 Personal history of peptic ulcer disease; Z79.899 Other long term (current) drug therapy; Z98.890 Other specified postprocedural states
CPT/HCPCS: 45380; 43239; 88305; 88313; J2003; J2250; J2704

== ENCOUNTER 2024-10-28 10:24 | Outpatient (REF) | payer MEDICARE, SELFPAY ==
--- NOTE | ~2024-10-28 | US_ITS ---
CLINICAL HISTORY: FAMILY HX OF AAA US Abdomen (AAA) Comparison: None Findings: Aorta proximal 3.0 x 2.6 cm. Aorta mid 2.6 x 2.3 cm. Aorta distal 2.3 x 2.2 cm. Right common iliac artery 1.5 x 1.7 cm. Left common iliac artery 1.5 x 1.4 cm. IMPRESSION: 1. No abdominal aortic aneurysm. This document has been electronically signed by: Lakesha Galdamez MD on 10/29/2024 06:51:58
== END 2024-10-28 10:25 | disposition home or self-care (01) ==
LOC: HO.US 10:24
PROVIDERS: PCP Internal Medicine; Visit Provider Internal Medicine
DX: Z82.49 Family history of ischemic heart disease and other diseases of the circulatory system (principal)
CPT/HCPCS: 76775

== ENCOUNTER → 2024-10-28 10:26 | Outpatient (BNV) | payer MEDICARE, SELFPAY | PROVIDERS: PCP Internal Medicine; Visit Provider Radiology Diagnostic Radiology | DX: Z82.49 Family history of ischemic heart disease and other diseases of the circulatory system (principal) | CPT/HCPCS: 76775 ==

== ENCOUNTER 2025-02-02 10:42 | Outpatient (REF) | payer MEDICARE, SELFPAY ==
[2025-02-02 10:45] LABS: MANUAL DIFF FLAG NO
[2025-02-02 11:08] LABS: Basophils Percent Auto 0.6 % (0-2); Eosinophils Absolute Auto 0.1 X10*3/uL (0.0-0.4); Eosinophils Percent Auto 2.7 % (0-4); Hematocrit 41.7 % (42.0-52.0); Hemoglobin 13.7 g/dl (14.0-18.0); Imm Gran Abs Auto 0.01 X10*3/uL (0.00-0.03); Imm Gran Pct Auto 0.2 % (0.0-0.4); Lymphocytes Absolute Auto 2.1 X10*3/uL (1.2-4.9); Lymphocytes Percent Auto 40.9 % (20-40); Mean Corpuscular HGB Conc 32.9 g/dl (31.0-36.0); Mean Corpuscular Hemoglobin 30.9 pg (27.0-33.0); Mean Corpuscular Volume 93.9 fL (80.0-98.0); Mean Platelet Volume 11.1 fL (9.4-12.4); Monocytes Absolute Auto 0.5 X10*3/uL (0.1-1.2); Monocytes Percent Auto 8.6 % (2-11); Neutrophils Absolute Auto 2.5 x10*3/uL (2.0-8.3); Platelet Count 288 X10*3/uL (160-400); Red Blood Count 4.44 X10*6/uL (4.60-5.80); Red Cell Distribution Width 13.2 % (11.0-16.0); White Blood Count 5.2 X10*3/uL (4.8-10.8)
[2025-02-02 11:30] LABS: Alanine Aminotransferase 34 U/L (0-40); Albumin Level 4.2 g/dL (3.5-5.0); Alkaline Phosphatase 70 U/L (39-117); Anion Gap 10 (12-20); Aspartate Amino Transferase 37 U/L (5-37); Bilirubin Direct 0.3 mg/dL (0.0-0.5); Bilirubin Total 0.5 mg/dL (0.0-1.0); Blood Urea Nitrogen 18 mg/dL (9-16); Calcium 9.6 mg/dL (8.4-10.2); Carbon Dioxide 28 mmol/L (22-29); Chloride 107 mmol/L (96-108); Cholesterol 116 mg/dL (<200); Estimated Glomerular Filt Rate > 60; Glucose Fasting 100 mg/dL (60-99); HDL Cholesterol 32 mg/dL (>40); LDL Cholesterol Calculated 58 mg/dL (<100); Sodium 141 mmol/L (135-145); Total Protein 6.8 g/dL (6.5-8.0); Triglycerides 133 mg/dL (<150)
--- OUTSIDE RECORDS SUMMARY | 2025-02-02 12:29 | XMS_ITS ---
Author Organization [facility] Address [address] [place] [address] Care Team Providers Care Metal Handler Name Role Phone Pop Cleveland MD Primary Care Provider Bob Mejia [phone] REASON FOR VISIT Omeprazole Encounters Encounter Location Date Provider Diagnosis [facility] [address] [place] [address] 10/17/2024 Bob Guillen Plan Of Treatment Next Appt Details Provider Name:Bob Guillen , 03/01/2025 03:40:00 PM, [address], [address], [place], [address], Progress Notes * CHELITA JAMISON CDOB:1960 (64 yo M)Acc No.[id number]:10/17/2024 Patient:?CHELITA JAMISON :1960???Age:64 Y???Sex:Male Address:[address], [place] [address] * true * Date:? Generated for Printi ng/Faxing/eTransmitting on:?02/02/2025 12:29 PM EDT
--- OUTSIDE RECORDS SUMMARY | 2025-02-02 12:30 | XMS_ITS ---
Author Organization [facility] Address [address] [place] [address] [place] [phone] Care Team Providers Care Leveler Helper Name Role Phone Pop Cleveland MD Primary Care Provider Bob Mejia [phone] REASON FOR VISIT 40mg omeprazole Rx Medications Medication SIG (Take, Route, Fr equency, Duration) Notes Start Date End Date Status Omeprazole 40 MG 1 capsule 1/2 to 1 h our before morning meal Orally Once a day for 90 days 10/10/2024 Active Encounters Encounter Location Date Provider Diagnosis [facility] [address] [phone] 10/10/2024 Bob Guillen Plan Of Treatment Medication Medication Name Sig Start Date Stop Date Notes Omeprazole 40 MG 1 capsule 1/2 to 1 h our before morning meal Orally Once a day for 90 days 10/10/2024 Next Appt Details Provider Name:Bob Guillen , 03/01/2025 03:40:00 PM, [address] [place] [address], [address], [place], [address], Progress Notes * CHELITA JAMISON CDOB:1960 (64 yo M)Acc No.[id number]:10/10/2024 Patient:?CHELITA JAMISON :1960???Age:64 Y???Sex:Male [address] [place] [facility] [address] * Refills? Start Omeprazole Capsule Delayed Release, 40 MG, Orally, 90, 1 capsule 1/2 to 1 hour before morning meal, Once a day, 90 days, Refills=3 * true * Date:? Generated for Janna martinez/Bharti/Cadence on:?02/02/2025 12:30 PM EDT
--- OUTSIDE RECORDS SUMMARY | 2025-02-02 12:30 | XMS_ITS | Patient Health Record ---
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 Panel Fa st Reviewed date:09/29/2024 04:42:33 PM Interpretation: Performing Lab:[facility], [address] [place] [phone] Notes/Report: Sodium 142 135-145 mmol/L Potassium 4.3 [...] Panel Reviewed date:09/29/2024 04:43:23 PM Interpretation: Performing Lab:[facility], [address] [place] [phone] Notes/Report: Triglycerides 488 <150 mg/dL Desirable Triglyceride: [...] (Free>4and<10) Reviewed date:09/29/2024 04:42:40 PM Interpretation: Performing Lab:[address] [phone] Notes/Report: PSA,Total (Free>4and<10) 1.32 0.00-4.00 ng/mL A [...] Random Reviewed date:09/29/2024 04:42:47 PM Interpretation: Performing Lab:[facility], [address] [place] [phone] Notes/Report: Creatinine Urine 101.61 Microalbumin Urine 5.0 Microalbum/Creatinine Ratio Ur 4.9 <30 ug/mg cr Albumin/Creatinine Ratio Reference Ranges: Normal: < 30 ug/mg creatinine Microalbuminuria: 30 - 300 ug/mg creatinine Clinical Albuminuria: > 300 ug/mg creatinine Hemoglobin A1c Reviewed date:09/29/2024 04:42:24 PM Interpretation: Performing Lab:[facility], [address] [place] [phone] Notes/Report: Hemoglobin A1c % 5.6 <6.0 % [...] average glucose, using the formula of the K3Y-Taehait Average Glucose study (ADAG), Diabetes Care, Vol.31,#8, 2007 UA ClnCatch+Micro w/rflx Cul t Reviewed date:09/29/2024 04:43:46 PM Interpretation: Performing Lab:[facility], [address] [place] [phone] Notes/Report: Urine, Clean Catch Color Urine Yellow Appearance Urine Clear PH 5.5 5.0-9.0 Glucose Urine UA Negative Negative mg/dL Urine Blood Negative Negative Specific [place] - Urine 1.015 1.005-1.025 Urine Protein Negative Neg-Trace mg/dL Urine Ketones Negative Negative mg/dL Nitrite Urine Negative Negative Leukocyte Esterase Urine Negative Negative RBC Urine 0-2 0-2 /HPF WBC Urine 0-5 0-5 /HPF Squamous Epithelial Cell Urine 0-2 0-2 /HPF Bacteria Urine None Seen None Seen Hyaline Casts Urine 0-2 0-2 /LPF Complete Blood Count Auto Di ff (Not yet reviewed by provider) Interpretation: Performing Lab:[facility], [address] [place] [phone] Notes/Report: White Blood Count 5.2 4.8-10.8 X10*3/uL [...] NRBC Abs Auto 0.000 0.0-0.012 X10*3/uL Comprehensive [place]. Panel Fa st (Not yet reviewed by provider) Interpretation: Performing Lab:[address] [address] Notes/Report: Sodium 141 135-145 mmol/L Potassium 4.0 [...] Alkaline Phosphatase 70 39-117 U/L Liver Panel (Not yet reviewe d by provider) Interpretation: Performing Lab:[address] [place] [address] Notes/Report: Bilirubin Direct 0.3 0.0-0.5 mg/dL Lipid Panel (Not yet reviewe d by provider) Interpretation: Performing Lab:[facility], [address] [place] [phone] Notes/Report: Triglycerides 133 <150 mg/dL Desirable Triglyceride: [...] low results in patients with liver disease. Electrocardiogram (EKG) Reviewed date:10/07/2024 03:19:23 PM Interpretation: Performing Lab: Notes/Report: Pathology Reviewed date:10/13/2024 02:00:03 PM Interpretation: Performing Lab:[facility], [address] [place] [phone] Notes/Report: -- ---- Name: Dario Albarran Age/Sex: 64/M : 1960 [id number] [id number] Attend Dr: Bob Guillen MD Re10/10/24 Status : [facility] Location: [facility] Disch: -- ---- SPEC : [id number] RECD : 10/10/24 STATUS: ESAU SUH NUM: [id number] JOHN: 10/10/[address] [facility] [address]: Bob Guillen MD ENTERED: 10/10/24-09 03 SP TYPE: Surgical OTHR DR: Pop Cleveland MD ORDERED: HE Stain/6, Gross Micro L4/2, Special st. 2, AB/PAS Diagnosis A. EG junction, 39 c m, biopsy: - Cardiofundic-type mucosa with moderate chronic inactive inflammation; no intestinal metaplasia seen. - Ulcerative esophagitis. B. Colon, 50 cm, polypectomy: Hyperplastic mucosal polyp; multiple additional levels examined. Clinical History Pre-Op Dx: Encounter for screening for malignant neoplasm of colon Post-Op Dx: Hiatal hernia, esophagitis, polyp, diverticulosis, hemorrhoids Microscopic Description A, B. Microscopic sections examined. No metaplastic changes or fungi are seen, supported by AB/PAS stains (A) Material Received A. EG junction @ 39 B. Polyp @ 50 Gross Description Received in two parts. Part A: Received in formalin labeled ?EG junction at 39? are 6 mccain-pink irregular and rectangular tissue fragments ranging from 0.15-0.3 cm, submitted in toto in a cassette labeled A. Part B: Received in formalin labeled ?polyp at 50? are 3 mccain and mccain-pink irregular tissue fragments each measuring 0.2 cm, submitted in toto in a cassette labeled B. CEDS Special studies ordered and performed: AB/PAS stains on A Copies To: Pop Cleveland MD [facility] [address] [place] [address] [place] [address] CONTINUED ON NEXT PAGE -- ---- Name: Dario Albarran Age/Sex: 64/M : 1960 Unit#: [id number] Attend Dr: Bob Guillen MD Re10/10/24 Status : [facility] Location: [facility] Disch: -- ---- SPEC : [id number] RECD : 10/10/24 STATUS: ESAU SUH NUM: [id number] JOHN: 10/10/[address] [facility] [address]: Bob Guillen MD ENTERED: 10/10/24-09 03 SP TYPE: Surgical OTHR DR: Pop Cleveland MD ORDERED: USHA Stain/6, Gross Micro L4/2, Special st. 2, AB/PAS Copies To: (Continued) Bob Guillen MD [address] [place] [address] -- ---- Signed (signature on file) Raymond Villagomez MD 10/13/24 0957 -- ---- END OF REPORT US aorta Reviewed date:10/31/2024 02:58:04 PM Interpretation: Performing Lab: Notes/Report: [address] [address] Ultrasound Report Signed Patient: Dario Albarran MR#: [id number] 5 : 1960 Acct:[id number] Age/Sex: 64 / M ADM Date: 10/28/24 Loc: .US Attending Dr: Pop Cleveland MD Ordering Physician: Pop Cleveland MD Date of Service: 10/28/24 Procedure(s): US aorta Accession Number(s): [id number] cc: Pop Cleveland MD CLINICAL HISTORY: FAMILY HX OF AAA US Abdomen (AAA) Comparison: None Findings: Aorta proximal 3.0 x 2.6 cm. Aorta mid 2.6 x 2.3 cm. Aorta distal 2.3 x 2.2 cm. Right common iliac artery 1.5 x 1.7 cm. Left common iliac artery 1.5 x 1.4 cm. IMPRESSION: 1. No abdominal aortic aneurysm. This document has been electronically signed by: Lakesha Galdamez MD on 10/29/2024 06:51:58 Dictated By: Lakesha Galdamez MD Signed By: <Electronically signed by Lakesha Galdamez MD in OV> 10/29/24 0653 DD/ TD/TT: 10/29/24650 Local Sales Manager: [address] [address] Ultrasound Report Signed Patient: Dario Albarran MR#: [id number] 5 : 1960 Acct:[id number] Age/Sex: 64 / M ADM Date: 10/28/24 Loc: .[place] Attending Dr: Pop Cleveland MD Ordering Physician: Pop Cleveland MD Date of Service: 10/28/24 Procedure(s): US aorta Accession Number(s): [id number] cc: Pop Cleveland MD CLINICAL HISTORY: FAMILY HX OF AAA US Abdomen (AAA) Comparison: None Findings: Aorta proximal 3.0 x 2.6 cm. Aorta mid 2.6 x 2.3 cm. Aorta distal 2.3 x 2 .2 cm. Right common iliac artery 1.5 x 1.7 cm. Left common iliac artery 1.5 x 1.4 cm. IMPRESSION: 1. No abdominal aort ic aneurysm. This document has be en electronically signed by: Lakesha Galdamez MD on 10/29/2024 06:51:58 Dictated By: Lakesha Galdamez MD Signed By: <Electronically signed by Lakesha Galdamez MD in OV> 10/29/2453 DD/ 0 TD/TT: 10/29/24650 Local Sales Manager: Danette Magana (Not yet reviewed by provider) Interpretation: Performing Lab:[facility], [address] [place] [phone] Notes/Report: Danette Magana See Note Specimen held untested for 24 hours; Call to request Chemistry testing. Reason For Referral Reason pain right shoulder Diagnosis 1 Pain in right should er (M25.511) Referral Organization Pop Cleveland MD Referring Provider First Name Pop Referring Provider Last Name Megha Referring Provider Speciality Internal M edicine Referred Provider JACQUE ABREU Referred Provider Specialty Orthopedic S urgery General Notes Vida Hayes 11:38:12 AM EST > info faxed, Vida Hayes 10/25/2024 11:50:25 AM >appt is with Jaquelin Dallas NP SpfFreddy Annette 10/25/2024 02:17:16 PM > info given to patient by phone Referral Priority Routine Referral Appointment Date 11/16/2024 Medications Medication SIG (Take, Route, Frequency, Duration) Notes Start Date End Date Status Atorvastatin Calcium 20 MG 1 tablet Oral ly Once a day Active Metoprolol Succinate ER 100 MG 1 tablet Orally Once a day Active Spironolactone 25 MG [...] 4 hrs for 30 day(s) 06/28/2018 Not-Taking Immunizations Vaccine Route Administration Date Status Comme [facility] Flu Vaccine Unknown 08/02/2013 Administered Given at [facility]; [facility] Flu Vaccine Unknown 07/18/2014 Administered [facility] Fluarix Quadrivalent Unknown 06/30/2016 Administered [facility] Shingrix IM Intramuscular 07/02/2018 Administered Shingrix IM Intramuscular 11/25/2018 Administered Fluarix Quadrivalent Unknown 07/22/2020 Administered [facility] SARS-COV-2 Pfizer Unknown 10/17/2020 Administered SARS-COV-2 Pfizer Unknown 11/07/2020 Administered SARS-COV-2 Pfizer Unknown 07/17/2021 Administered Fluarix Quadrivalent Unknown 07/17/2021 Administered SARS-COV-2 Pfizer Unknown 07/08/2022 Administered [facility] Fluarix Quadrivalent Unknown 07/08/2022 Administered CV S SARS-COV-2 Pfizer Unknown 09/18/2023 Administered Social History Tobacco Use: Social History Observation Description Date Details (start date - stop date) Never Smoker NA - NA Tobacco Use/Smoking Question Answer Notes Patient is [...] Never (0 point) Points 4 Interpretation Positive Problems Problem Type SNOMED Code ICD Code Onset Dates Problem Status W/U Status Risk Notes Problem 72799093 Lymphocytosis (D72.820) Active confirmed Problem 94070063 Other chronic pain (G89.29) Active confirmed Problem 200483556 Lumbar disc disease (M51.9) Active confirmed Problem Essential hypertension (38491318) Essential hypertension (I10) Active confirmed Problem Prediabetes (227834102) Prediabetes (R73.09) Active confirmed Problem 371074783 High triglycerides (E78.1) Active confirmed Problem 374556279 Cervical disc disease (M50.90) Active confirmed Problem 64358077 Sciatica of left side (M54.32) Active confirmed Problem 744551789 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 confirmed Problem 774432809 Renal cyst (N28.1) Active confirmed Problem 339770295 Kidney cyst, acquired (N28.1) Active confirmed Problem 5265808363505 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) Active confirmed Problem 679901979 Elevated cholesterol with high triglycerides (E78.2) Active confirmed Problem 50883900 Skin melanoma (C43.9) Active confirmed Vital Signs Blood pressure diastolic 58 mm Hg 01/31/2025 Height 71 in 01/31/2025 Blood pressure systolic 82 mm Hg 01/31/2025 Weight 188 lbs 01/31/2025 BMI 26.22 kg/m2 01/31/2025 Encounters Encounter Location Date Provider Diagnosis Pop Cleveland MD [address] [place] [id number] 09/29/2024 Pop Cleveland Blood tests for routine general physical examination Z00.00 ; High triglycerides E78.1 ; Prediabetes R73.09 and Essential hypertension I10 Pop Cleveland MD [address] [place] [id number] 01/31/[address] elevation myocardial infarction involving left anterior descending (LAD) coronary artery I21.02 and History of cardiac arrest Z86.74 Pop Cleveland MD [address] [facility] [place] [id number] 02/02/2025 Pop Cleveland Elevated LFTs R79.89 Pop Cleveland MD [address] [facility] [place] [id number] 04/01/2024 Pop Cleveland Essential hypertension I10 and Skin melanoma C43.9 Pop Cleveland MD [address] [place] [id number] 05/13/2024 Pop Cleveland COVID-19 U07.1 Pop Cleveland MD [address] [place] [id number] 10/07/2024 Pop Cleveland Family history of abdominal [...] Essential hypertension I10 Pop Cleveland MD [address] [facility] [place] [id number] 12/01/2024 Pop Cleveland History of pneumonia Z87.01 ; ST elevation myocardial infarction involving left anterior descending (LAD) coronary artery I21.02 and History of cardiac arrest Z86.74 Pop Cleveland MD [address] [place] [id number] 12/15/[address] elevation myocardial infarction involving left anterior descending (LAD) coronary artery I21.02 and History of cardiac arrest Z86.74 Pop Cleveland MD [address] [place] [id number] 03/31/2024 Pop Cleveland MD [address] [place] [id number] 05/02/2024 Pop Cleveland MD [address] [place] [id number] 11/18/2024 Pop Cleveland Assessments Encounter Date Diagnosis (ICD Code) Assessment Notes Treatment Notes Treatment Clinical Notes Section Notes 09/29/2024 Blood tests for routine general physical examination (ICD-10 - Z00.00) 09/29/2024 High triglycerides (ICD-10 - E78.1) 01/31/2025 ST elevation myocardial infarction involving left anterior descending (LAD) coronary artery (ICD-10 - I21.02) has recently started on statin and will need to increase as time goes/ had been on 80 and was on hold due to liver tests 02/02/2025 Elevated LFTs (ICD-10 - R79.89) 04/01/2024 Essential hypertension (ICD-10 - I10) doing great on med, will continue current regiment 04/01/2024 Skin melanoma (ICD-10 - C43.9) need note from [facility]/ REQUEST MADE BY PHONE MESSAGE TO FAX THE OFFICE NOTES TO PCP 05/13/2024 COVID-19 (ICD-10 - U07.1) 10/07/2024 Family history of abdominal aortic aneurysm (AAA) (ICD-10 - Z82.49) [place] fax[place] [facility] [place] 10/07/2024 Annual physical exam (ICD-10 - Z00.00) labs reviewed and discussed with patient 12/01/2024 History of pneumonia (ICD-10 - Z87.01) pending diagnostic testing 12/01/2024 ST elevation myocardial infarction involving left anterior descending (LAD) coronary artery (ICD-10 - I21.02) having no pains and 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 12/15/2024 ST elevation myocardial infarction involving left anterior descending (LAD) coronary artery (ICD-10 - I21.02) need results from dr galvez 09/29/2024 Prediabetes (ICD-10 - R73.09) 01/31/2025 History of cardiac arrest (ICD-10 - Z86.74) doing great waiting for echo to determine need for defibi=rillator 10/07/2024 Right tennis elbow (ICD-10 - M77.11) advised to where tennis elbow brace and ice 12/01/2024 History of cardiac arrest (ICD-10 - Z86.74) has been doing well p/hospital 12/15/2024 History of cardiac arrest (ICD-10 - Z86.74) is followed by [facility] and doing cardiac rehab 09/29/2024 Essential hypertension (ICD-10 - I10) 10/07/2024 Plantar fasciitis of right foot (ICD-10 - M72.2) advised to use arch supports 10/07/2024 Pain in right shoulder (ICD-10 - M25.511) referral to [facility] 10/07/2024 Other chronic pain (ICD-10 - G89.29) 10/07/2024 Elevated LFTs (ICD-10 - R79.89) decrease etoh and repeat lft 10/07/2024 Lymphocytosis (ICD-10 - D72.820) repeat cbc in 2 mo 10/07/2024 Elevated cholesterol with high triglycerides (ICD-10 - E78.2) advised on diet and exercise 10/07/2024 Colon cancer screening (ICD-10 - Z12.11) guaiac negative 10/07/2024 Depression screening (ICD-10 - Z13.31) negative screen 10/07/2024 Essential hypertension (ICD-10 - I10) stable, will continue current regiment Plan Of Treatment Pending Test Test Name Order Date Electrocardiogram (EKG) 07/17/2017 Electrocardiogram (EKG) 08/12/2018 Electrocardiogram (EKG) 08/18/2019 CARDIOVASCULAR STRESS TEST 09/20/2021 CT ABD & PELVIS WITH CONTRAST 03/03/2017 XR CHEST 2 VIEW PA & LAT 12/01/2024 US ABD AORTA 10/07/2024 Complete Blood Count Auto Diff 5 Comprehensive [place]. Panel Fast 5 Comprehensive [place]. Panel Fast 5 Lipid Panel 01/31/2025 Hold Gold 02/02/2025 Complete Blood Count Auto Diff 5 Liver Panel 02/02/2025 Lipid Panel 02/02/2025 Next Appt Details Provider Name:[facility] house, 04/03/2025 11:00:00 AM, [address] [place] [address], [address], [phone], Provider Name:Pop house, 10/09/2025 07:15:00 AM, [address] [place] [address], [address], [phone], Provider Name:Pop house, 10/16/2025 10:30:00 AM, [address] [place] [address], [address], [phone], Insurance Providers Payer Name Payer Address Payer Phone Subscriber Number Group Number Insured Name Patient Relationship to Insured Coverage Start Date Coverage End Date [employer] [facility] [address] [place], [place] [id number] Dario Albarran Self - patient is the insured Medical (General) History Medical History History ICD Code colonoscopy 12/05/13, Dr. Donovan evangelista - 5 year f/u; Colonoscopy done 07/29/[address] Guillen - repeat 5 years colonoscopy 10/10/24 repeat 5y ultrasound kidneys need no further follo w up
--- OUTSIDE RECORDS SUMMARY | 2025-02-02 12:30 | XMS_ITS | Patient Health Record ---
Author Organization [facility] Address [address] [place] [address] Care Team Providers Care Teller Vault Name Role Phone Megha LEHMAN, Pop Primary Care Provider Bob Mejia Unavailable [phone] Allergies No Known Allergies Results Component Value Reference Range Notes Pathology Reviewed date:10/17/2024 11:07:09 PM Interpretation: Performing Lab:[facility], [address] [place] [phone] Notes/Report: Name: Chelita Albarran Age/Sex: 64/M : 1960 Unit#: [id number] Attend Dr: Bob Guillen MD Re10/10/24 Status : [facility] Location: [facility] Disch: SPEC : [id number] RECD : 10/10/24 STATUS: ESAU SUH NUM: [id number] JOHN: 10/10/24 [facility] DR: Bob Guillen MD ENTERED: 10/10/24-09 03 SP TYPE: Surgical OTHR DR: Pop Cleveland MD ORDERED: HE Stain/6, Gross Micro L4/2, Special st. 2, AB/PAS Diagnosis A. EG junction, 39 cm, biopsy: - Cardiofundic-type mucosa with moderate chronic inactive inflammation; no intestinal metaplasia seen. - Ulcerative esophagitis. B. Colon, 50 cm, yaritza ypectomy: Hyperplastic mucosal polyp; multiple additional levels examined. Clinical History Pre-Op Dx: Encounter for screening for malignant neoplasm of colon Post-Op Dx: Hiatal h ernia, esophagitis, polyp, diverticulosis, hemorrhoids Microscopic Description A, B. Microscopic se ctions examined. No metaplastic changes or fungi are seen, supported by AB/PAS stains (A) Material Received A. EG junction @ 39 B. Polyp @ 50 Gross Description Received in two parts. Part A: Received in formalin labeled ?EG junction at 39? are 6 mccain-pink irregular and rectangular tissue f ragments ranging from 0.15-0.3 cm, submitted in toto in a cassette labeled A. Part B: Received in formalin labeled ?polyp at 50? are 3 mccain and mccain-pink irregular tissue fragments each measu ring 0.2 cm, submitted in toto in a cassette labeled B. CEDS Special studies orde red and performed: AB/PAS stains on A Copies To: Pop Cleveland MD [facility] [address] [place] [address] [place] [id number] CONTINUED ON NEXT PAGE Name: Chelita Albarran Age/Sex: 64/M : 1960 Unit#: [id number] Attend Dr: Bob Guillen MD Re10/10/24 Status : [facility] Location: [facility] Disch: SPEC : [id number] RECD : 10/10/24 STATUS: DEMARCOFranecsca PERALTASaadia NUM: [id number] JOHN: 10/10/24 [facility] DR: Bob Guillen MD ENTERED: 10/10/24-09 03 SP TYPE: Surgical OTHR DR: Pop Cleveland MD ORDERED: USHA Stain/6, Gross Micro L4/2, Special st. 2, AB/PAS Copies To: (Continued) Bob Guillen MD [address] [place], [place] [id number] Signed (si gnature on file) Raymond Villagomez MD 10/13/24 0957 END OF REPORT Reason For Referral No Information Medications Medication SIG (Take, Route, Fr equency, Duration) Notes Start Date End Date Status Omeprazole 40 MG 1 capsule 1/2 to 1 h our before morning meal Orally Once a day for 90 days 10/10/2024 Active Valsartan 80 MG TAKE 1 TABLET BY JOSEPHINE TH EVERY DAY Oral for 90 Active Multivitamin Adults Active Immunizations Vaccine Route Administration Date Status Comme nts Influenza Unknown 07/12/2018 Administered Influenza Unknown 09/13/2024 Administered Problems Problem Type SNOMED Code ICD Code Onset Dates Problem Status W/U Status Risk Notes Problem Colon cancer screening (419587204) Colon cancer screening (Z12.11) Active confirmed Problem Gastro-esophageal reflux disease without esophagitis (736588207) Gastro-esophageal reflux disease without esophagitis (K21.9) Active confirmed Problem 455036161 Encounter for screening for malignant neoplasm of colon (Z12.11) Active confirmed Problem Diverticular disease of colon (918997834) Diverticulosis of large intestine without perforation or abscess without bleeding (K57.30) Active confirmed Problem Erosive esophagitis (02988222) Erosive esophagitis (K22.10) Active confirmed Problem 647507434 Hx of adenomatou s colonic polyps (Z86.010) Active confirmed Problem 138853691 Abdominal pain, right upper quadrant (R10.11) Active confirmed Problem 276156859830988 Pre-procedural examination (Z01.818) Active confirmed Problem Gastroesophageal reflux disease (disorder) (135156335) Chronic GERD (K21.9) Active confirmed Vital Signs Temperature 97.8 degrees Fahrenheit 09/28/2024 Blood pressure diastolic 00 mm Hg 09/28/2024 Height 71 in 09/28/2024 Blood pressure systolic 000 mm Hg 09/28/2024 Weight 214 lb 2 oz lbs 09/28/2024 BMI 29.86 kg/m2 09/28/2024 Encounters Encounter Location Date Provider Diagnosis [facility] [address] [place] [phone] 10/10/2024 Bob Guillen Colon cancer screeni Z12.11 ; Colon polyps K63.5 ; Diverticulosis of large intestine without perforation or abscess without bleeding K57.30 ; Other hemorrhoids K64.8 ; Gastro-esophageal reflux disease without esophagitis K21.9 ; Erosive esophagitis K22.10 and Hiatal hernia K44.9 [facility] [address] [place] [address] 09/28/2024 Bob Guillen Colon cancer screeni ng Z12.11 ; Chronic GERD K21.9 and Hx of adenomatous colonic polyps Z86.010 [facility] [address] [place] [address] 10/10/2024 Bob Guillen [facility] [address] [place] [address] 10/17/2024 Bob Guillen Assessments Encounter Date Diagnosis (ICD Code) Assessment Notes Treatment Notes Treatment Clinical Notes Section Notes 10/10/2024 Colon cancer screening (ICD-10 - Z12.11) 10/10/2024 Colon polyps (ICD-10 - K63.5) 09/28/2024 Colon cancer screening (ICD-10 - Z12.11) Overall, Chelita appears well. I did recommend a followup screening colonoscopy given his personal history of tubular adenomas and his last colonoscopy being over 5 years ago. We did review the rationale for that in regard to colon cancer prevention. Given his history of intermittent indigestion and reflux, I did recommend an upper endoscopy on the same day as well to rule out any component of significant esophagitis, Hopper's esophagus, and/or hiatal hernia. We did review that trying to have a healthy diet, losing some weight, and minimizing alcohol would benefit him in regard to his overall health, as well as in regard to decreasing his reflux symptoms. Full consent was obtained from him for both procedures, including risks of bleeding and perforation. The procedures will be done with monitored anesthesia care. Chelita was comfortable with this plan. Thank you again for allowing me to participate in Chelita's care. I shall continue to keep you advised of his progress. 09/28/2024 Chronic GERD (ICD-10 - K21.9) Overall, Chelita appears well. I did recommend a followup screening colonoscopy given his personal history of tubular adenomas and his last colonoscopy being over 5 years ago. We did review the rationale for that in regard to colon cancer prevention. Given his history of intermittent indigestion and reflux, I did recommend an upper endoscopy on the same day as well to rule out any component of significant esophagitis, Hopper's esophagus, and/or hiatal hernia. We did review that trying to have a healthy diet, losing some weight, and minimizing alcohol would benefit him in regard to his overall health, as well as in regard to decreasing his reflux symptoms. Full consent was obtained from him for both procedures, including risks of bleeding and perforation. The procedures will be done with monitored anesthesia care. Chelita was comfortable with this plan. Thank you again for allowing me to participate in Chelita's care. I shall continue to keep you advised of his progress. 10/10/2024 Diverticulosis of large intestine without perforation or abscess without bleeding (ICD-10 - K57.30) 09/28/2024 Hx of adenomatous colonic polyps (ICD-10 - Z86.010) Overall, Chelita appears well. I did recommend a followup screening colonoscopy given his personal history of tubular adenomas and his last colonoscopy being over 5 years ago. We did review the rationale for that in regard to colon cancer prevention. Given his history of intermittent indigestion and reflux, I did recommend an upper endoscopy on the same day as well to rule out any component of significant esophagitis, Hopper's esophagus, and/or hiatal hernia. We did review that trying to have a healthy diet, losing some weight, and minimizing alcohol would benefit him in regard to his overall health, as well as in regard to decreasing his reflux symptoms. Full consent was obtained from him for both procedures, including risks of bleeding and perforation. The procedures will be done with monitored anesthesia care. Chelita was comfortable with this plan. Thank you again for allowing me to participate in Chelita's care. I shall continue to keep you advised of his progress. 10/10/2024 Other hemorrhoids (ICD-10 - K64.8) 10/10/2024 Gastro-esophageal reflux disease without esophagitis (ICD-10 - K21.9) 10/10/2024 Erosive esophagitis (ICD-10 - K22.10) 10/10/2024 Hiatal hernia (ICD-10 - K44.9) Plan Of Treatment Future Test Test Name Order Date COLONOSCOPY 02/16/2013 COLONOSCOPY 11/25/2018 UPPER GI ENDOSCOPY 09/28/2024 COLONOSCOPY 09/28/2024 Next Appt Details Provider Name:Bob Pérez Mindy , 03/01/2025 03:40:00 PM, [address] [place] [address], [address], [place], [address], Insurance Providers Payer Name Payer Address Payer Phone Subscriber Number Group Number Insured Name Patient Relationship to Insured Coverage Start Date Coverage End Date [facility] [address] [place] [address] [phone] [id number] CHELITA ALBARRAN Self - patient is the insured Medical (General) History Medical History History ICD Code Colonoscopy 12-27-2007- smal l tubular adenoma removed; also noted were small internal hemorrhoids and occasional diverticulosis; colonoscopy in 11/2013-small tubular adenoma removed IBS Hx of a bleeding ulcer which required tr ansfusions in high school. Denies MA,DM,CVA,Lung disease,renal dise ase Chronic right upper quadrant discomfort with a negative gallbladder ultrasound in 2015 Colonoscopy 07/2019 with a small tubular adenoma HTN Malignant melanoma on scalp 2022 Surgical History Surgery Date(Month/Year) Left shoulder Removal of malignant melanoma from scalp in 09/2023
--- OUTSIDE RECORDS SUMMARY | 2025-02-02 12:30 | XMS_ITS ---
Author Organization [facility] Address [address] [place] [address] Care Team Providers Care Legal Transcriber Name Role Phone Pop Cleveland MD Primary Care Provider Bob Mejia [phone] REASON FOR VISIT SCREENING COLON, gerd Problems Problem Type SNOMED Code ICD Code Onset Dates Problem Status W/U Status Risk Notes Problem Diverticular disease of colon (003694936) Diverticulosis of large intestine without perforation or abscess without bleeding (K57.30) Active confirmed Problem Gastro-esophagea l reflux disease without esophagitis (718385043) Gastro-esophageal reflux disease without esophagitis (K21.9) Active confirmed Problem Erosive esophagitis (90261377) Erosive esophagitis (K22.10) Active confirmed Encounters Encounter Location Date Provider Diagnosis [facility] [address] [place] [phone] 10/10/2024 Bob Guillen Colon cancer scree shi [...] Name:Bob Guillen , 03/01/2025 03:40:00 PM, [address] [facility], [address], [place], [address], Progress Notes * CHELITA JAMISON CDOB:1960 (64 yo M)Acc No.[id number]:10/10/2024 EGD and COL/MAC Patient:?CHELITA JAMISON Provider:?Bob Guillen MD :1960???Age:64 Y???Sex:Male Giuseppe e:10/10/2024 Address:[address] [place] [address] , [id number] Pcp:Pop Cleveland MD Subjective: * Chief Complaints: * ???1. SCREENING COLON, gerd. * Medical History:? Objective: * Vitals:? Assessment: * Assessment: 1.?Colon cancer screening - Z12.11 (Primary)???2.?Colon polyps - K63.5???3.?Diverticulosis of large intestine without perforation or abscess without bleeding - K57.30???4.?Other hemorrhoids - K64.8???5.?Gastro-esophageal reflux disease without esophagitis - K21.9???6.?Erosive esophagitis - K22.10???7.?Hiatal hernia - K44.9??? Plan: * Treatment: * Procedure Codes:?28806 COLON OSCOPY AND BIOPSY, Modifiers: PT , 0529F INTRVL 3+YRS PTS CLNSCP DOCD, 0528F RCMND FLW-UP 10 YRS DOCD, Modifiers: 1P , 95625 UPPER GI ENDOSCOPY, BIOPSY * * The named appointment provid er may or may not be the originator of this progress note, and it is not deemed complete until electronically signed by the appointment provider. Sign off status: Pending * Provider:?Bob Guillen MD Date:? 024 Generated for Janna martinez/Bharti/Cadence on:?02/02/2025 12:30 PM EDT
--- OUTSIDE RECORDS SUMMARY | 2025-02-02 12:31 | XMS_ITS ---
Author Organization Pop Cleveland MD Address [address] [place] [phone] Care Team Providers Care Home Care Attendant Name Role Phone Pop Cleveland Primary Care Provider Allergies No Known Allergies REASON FOR VISIT [...] Date Provider Diagnosis Pop Cleveland MD [address] [place] [address] [place] [phone] 12/15/[address] elevation myocardial infarction [...] 6 Weeks, Reason: Provider Name:Pop You ier, 04/03/2025 11:00:00 AM, [address] [place] [address], [address] [place] [address], [phone], Provider Name:Pop You ier, 10/09/2025 07:15:00 AM, [address] [place] [address], [address], [phone], Provider Name:Pop You ier, 10/16/2025 10:30:00 AM, [address] [place] [address], [address], [phone], Progress Notes * Dario ALBARRAN CDOB:1960 (64 yo M)Acc No.[id number]:12/15/2024 Progress Notes Patient:?ISIDORODario HERMOSILLO Provider:?Pop Cleveland MD :1960???Age:64 Y???Sex:Male Giuseppe e:12/15/2024 Address:[address], [place], [place] Subjective: * Chief Complaints: * ???2 week * HPI: ???Symptom(s):?patient is a 64 yo male here for 2 week follow up. has seen director of technology. bp is running low. gets dizzy if standing up. has been going to cardiac rehab and feels great going there./ no shortness of breath with exertion. gets out of breath rarely. clmbs stairs without difficulty. * ROS:?General/Constitutional:?Denies?Chills.?Denies?Fatigue.?Denies?Fever.?Denies?Headache.?ENT:?Patient denies?decreased sense of smell, any loss of taste, sore throat.?Denies?Sore throat.?Respiratory:?Denies?Cough.?Denies?Shortness of breath at rest.?Denies?Shortness of breath with exertion.?Gastrointestinal:?Denies?Diarrhea.?Denies?Nausea.?Musculoskeletal:?Patient denies?muscle aches.?Peripheral Vascular:?Patient denies?red and blue toes.? * Medical History:? * Surgical History:? * Hospitalization/Major Diagno stic Procedure:? * Medications:?TakingMetoprolo l Succinate ER 100 MG Tablet Extended Release [...] reviewed and reconciled with the patient * Allergies:?N.K.D.A.yes[Aller gies Verified] Objective: * Vitals:?Ht: 71, Wt: 189, BMI :26.36, BP:82/44, Wt-k.73. * Examination: ???General Examination: ?GENERAL APPEARANCE:?alert, well hydrated, in no distress.?HEAD:?normocephalic.?SKIN:?good turgor.?HEART:?no murmurs, rubs, gallops, regular rate and rhythm.?LUNGS:?no wheezes, rales, rhonchi, good air movement, clear to auscultation bilaterally.? Assessment: * Assessment: 1.?ST elevation myocardial i nfarction involving left anterior descending (LAD) coronary artery - I21.02 (Primary)???2.?History of cardiac arrest - Z86.74??? Plan: * Treatment: 2.?History of cardiac arrest ? Notes: is followed by [facility] and doing cardiac rehab?? * Procedure Codes:? * Follow Up:?6 Weeks * * Sign off status: Completed true * Provider:?Pop Cleveland MD Date:?0 12/15/2024 Generated for Janna martinez/Bharti/Edvinitting on:?02/02/2025 12:30 PM EDT History and Physical Notes * HPI (History of Present Illness) Category Sub-Category Detail Notes Category Not es Symptom(s) patient is a 64 yo male here for 2 week follow up. has seen director of technology. bp is running low. gets dizzy if [...]
--- OUTSIDE RECORDS SUMMARY | 2025-02-02 12:31 | XMS_ITS ---
Author Organization Pop Cleveland MD Address [address] [place], [place] [phone] Care Team Providers Care Job Printer Name Role Phone Pop Cleveland Primary Care Provider Results Component Value Reference Range Notes Complete Blood Count Auto Di ff (Not yet reviewed by provider) Interpretation: Performing Lab:[facility], [address] [place] [phone] Notes/Report: White Blood Count 5.2 4.8-10.8 X10*3/uL [...] NRBC Abs Auto 0.000 0.0-0.012 X10*3/uL Comprehensive Interior. Panel Fa (Not yet reviewed by provider) Interpretation: Performing Lab:[address] [id number] Notes/Report: Sodium 141 135-145 mmol/L Potassium 4.0 [...] yet reviewe d by provider) Interpretation: Performing Lab:[address] [address] Notes/Report: Bilirubin Direct 0.3 0.0-0.5 mg/dL Lipid Panel (Not yet reviewe d by provider) Interpretation: Performing Lab:[address] [address] Notes/Report: Triglycerides 133 <150 mg/dL Desirable Triglyceride: [...] REASON FOR VISIT CBC with diff, Comp Interior, fasting lipids Encounters Encounter Location Date Provider Diagnosis Pop Cleveland MD [address] [place] [phone] 02/02/2025 Pop Cleveland Elevated LFTs R79.89 Assessments Encounter Date Diagnosis (ICD Code) Assessment Notes Treatment Notes Treatment Clinical Notes Section Notes 02/02/2025 Elevated LFTs (ICD-10 - R79.89) Plan Of Treatment Pending Test Test Name Order Date Comprehensive Interior. Panel Fast 5 Complete Blood Count Auto Diff 5 Liver Panel 02/02/2025 Lipid Panel 02/02/2025 Next Appt Details Provider Name:Pop house, 04/03/2025 11:00:00 AM, [address] [place] [address], [address], [phone], Provider Name:Pop house, 10/09/2025 07:15:00 AM, [address] [place] [address], [address], [phone], Provider Name:Pop house, 10/16/2025 10:30:00 AM, [address] [place] [address], [address], [phone], Progress Notes * Dario ALBARRAN CDOB:1960 (64 yo M)Acc No.[id number]:02/02/2025 Progress Note Patient:?SHAHEEN Dario C Provider:?Pop Cleveland MD :1960???Age:64 Y???Sex:Male Giuseppe e:02/02/2025 Address: [address] [id number] Subjective: * Chief Complaints: * ???1. CBC with diff, Comp Me ta, fasting lipids. * Medical History:? Objective: * Vitals:? Assessment: * Assessment: 1.?Elevated LFTs - R79.89 (P rimary)??? Plan: * Treatment: * Procedure Codes:?17998 VENIP UNCT, ROUTINE* * * The named appointment provid er may or may not be the originator of this progress note, and it is not deemed complete until electronically signed by the appointment provider. Sign off status: Pending * Provider:?Pop Cleveland MD Date:?0 02/02/2025 Generated for Janna martinez/Bharti/Edvinitting on:?02/02/2025 12:30 PM EDT
--- OUTSIDE RECORDS SUMMARY | 2025-02-02 12:31 | XMS_ITS ---
Author Organization Pop Cleveland MD Address [address] [place], [place] [id number] Care Team Providers Care Felt Puller Name Role Phone Pop Cleveland Primary Care Provider [phone] Allergies No Known Allergies REASON FOR [...] Location Date Provider Diagnosis Pop Cleveland MD [address] [place] [address] [place] [phone] 01/31/[address] elevation myocardial infarction [...] Complete Blood Count Auto Diff 5 Comprehensive [place]. Panel Fast 5 Lipid Panel 01/31/2025 Next Appt Details Follow Up: 2 Months, Reason: Provider Name:Pop house, 04/03/2025 11:00:00 AM, [address] [place] [address], [address] [place] [address], [phone], Provider Name:Pop house, 10/09/2025 07:15:00 AM, [address] [place] [address], Suite [facility], [place], [place], [phone], Provider Name:Pop house, 10/16/2025 10:30:00 AM, [address] [place] [address], Suite [facility], [place], [place], [phone], Progress Notes * Dario ALBARRAN CDOB:1960 (64 yo M)Acc No.[id number]:01/31/2025 Progress Notes Patient:?Dario ALBARRAN Provider:?Pop Cleveland MD :1960???Age:64 Y???Sex:Male Giuseppe e:01/31/2025 [address] [address] Subjective: * Chief Complaints: * ???1. 6 weeks. * HPI: ???Symptom(s):?patigiuliana is a 64 yo male here for 6 week follow up visit/ still wearing a temporary defibrillator. awaiting his echo. / is going to rehab 3 times per week and going to the [facility] [place] too. chest is doing better. not short of breath. * ROS:?General/Constitutional:?Denies?Chills.?Denies?Fatigue.?Denies?Fever.?Denies?Headache.?ENT:?Denies?Sore throat.?Respiratory:?Denies?Cough.?Denies?Shortness of breath at rest.?Denies?Shortness of breath with exertion.?Cardiovascular:?Denies?Chest pain at rest.?Denies?Chest pain with exertion.?Denies?Dizziness.?Denies?Palpitations.?Denies?Shortness of breath.?Gastrointestinal:?Denies?Diarrhea.?Denies?Nausea.? * Medical History:?colonoscopy 12/05/13, Dr. Guillen - 5 year f/u; Colonoscopy done 07/29/[address] Guillen - repeat 5 years colonoscopy 10/10/24 repeat 5y, Ultrasound kidneys need no further follow up. * Medications:?Taking Atorvast atin Calcium 20 MG Tablet 1 tablet Orally Once a day , Taking Metoprolol Succinate ER 100 MG Tablet Extended Release 24 Hour 1 tablet Orally Once a day , Taking Spironolactone 25 MG Tablet 1 tablet Orally , Taking Entresto 24-26 MG Tablet 1 tablet Orally Twice a day , Taking Omeprazole 40 MG Capsule Delayed Release 1 capsule 1/2 to 1 hour before morning meal Orally Once a day , Taking Dapagliflozin Propanediol 10 MG Tablet 1 tablet Orally Once a day , Taking Clopidogrel Bisulfate 75 MG Tablet 1 tablet Orally Once a day , Taking Apixaban 5 MG Tablet as directed Orally , Not-Taking/PRN LORazepam 1 MG Tablet 1 tablet at bedtime as needed Orally Once a day , Not-Taking/PRN HYDROcodone-Acetaminophen 5-325 MG Tablet 1 tablet as needed Orally every 6 hrs , Not-Taking/PRN Cyclobenzaprine HCl 5 MG Tablet 1 tablet as needed Orally Three times a day , Not-Taking/PRN Ventolin HFA * 108 (90 Base) MCG/ACT Aerosol Solution 2 puffs as needed Inhalation every 4 hrs , Medication List reviewed and reconciled with the patient * Allergies:?N.K.D.A. Objective: * Vitals:?Ht: 71, Wt: 188, BMI :26.22, BP:82/58, Wt-k.28. * Examination: ???General Examination: ?GENERAL APPEARANCE:?alert, well hydrated, in no distress.?HEAD:?normocephalic.?SKIN:?good turgor.?HEART:?regular rate and rhythm, no murmurs, rubs, gallops.?LUNGS:?good air movement, clear to auscultation bilaterally, clear anteriorly and posteriorly.? Assessment: * Assessment: 1.?ST elevation myocardial i nfarction involving left anterior descending (LAD) coronary artery - I21.02 (Primary)???2.?History of cardiac arrest - Z86.74??? Plan: * Treatment: 2.?History of cardiac arrest ? Notes: doing great waiting for echo to determine need for defibi=rillator?? * Follow Up:?2 Months * * The named appointment provid er may or may not be the originator of this progress note, and it is not deemed complete until electronically signed by the appointment provider. Sign off status: Pending * Provider:?Pop Cleveland MD Date:?0 01/31/2025 Generated for Ninfai michelle/Bharti/eTemmasmitting on:?02/02/2025 12:30 PM EDT History and Physical Notes * HPI (History of Present Illness) Category Sub-Category Detail Notes Category Not es Symptom(s) maritza is a 64 yo male here for 6 week follow up visit/ still wearing a temporary defibrillator. awaiting his echo. / is going to rehab 3 times per week and going to the [facility] [place] too. chest is doing better. not short of breath. Examination Category Sub-Category Detail Notes Category Not es General Examination GENERAL APPEARANCE: alert, w ell hydrated, in no distress HEAD: normocephalic HEART: regular rate and rhy thm, no murmurs, rubs, gallops LUNGS: good air movement, c lear to auscultation bilaterally, clear anteriorly and posteriorly SKIN: good turgor
== END 2025-02-02 10:43 | disposition home or self-care (01) ==
LOC: HO.LNP 10:42
PROVIDERS: Visit Provider Internal Medicine
DX: R79.89 Other specified abnormal findings of blood chemistry (principal)
CPT/HCPCS: 80053; 80061; 80076; 82248; 85025

== ENCOUNTER 2025-06-05 16:03 | Outpatient (REF) | payer MEDICARE, SELFPAY ==
--- OUTSIDE RECORDS SUMMARY | 2024-10-10 04:40 | XMS_ITS ---
Author Organization [facility] Address [address] [place] [address] Care Team Providers Care Mails Supervisor Name Role Phone Pop Cleveland MD Primary Care Provider Bob Mejia [phone] REASON FOR VISIT SCREENING COLON, gerd Problems Problem Type SNOMED Code ICD Code Onset Dates Problem Status W/U Status Risk Notes Problem Diverticular disease of colon (475540053) Diverticulosis of large intestine without perforation or abscess without bleeding (K57.30) Active confirmed Problem Gastro-esophagea l reflux disease without esophagitis (250792946) Gastro-esophageal reflux disease without esophagitis (K21.9) Active confirmed Problem Erosive esophagitis (K22.10) Active confirmed Encounters Encounter Location Date Provider Diagnosis [facility] Outpatient [address] [place] [phone] 10/10/2024 Bob Guillen Colon cancer scree shi [...] Of Treatment Next Appt Details Provider Name:Bob Guillen , 02/28/2026 01:00:00 PM, [address] [facility], [address], [place], [address], Progress Notes * CHELITA JAMISON CDOB:1960 (64 yo M)Acc No.[id number]:10/10/2024 EGD and COL/MAC Patient: CHELITA SHAFFER Provider: Zenobia Guillen MD :1960 A ge:64 Y S ex:Male Date:10/10/2024 Address:[address] [place] [address] , [id number] Pcp:Pop Cleveland MD Subjective: * Chief Complaints: * 1 . SCREENING COLON, gerd. * Medical History: Objective: * Vitals: Assessment: * Assessment: 1. C olon cancer [...] H iatal hernia - K44.9 Plan: * Treatment: * Procedure Codes: 4 5380 COLONOSCOPY AND BIOPSY, Modifiers: PT , 0529F INTRVL 3+YRS PTS CLNSCP DOCD, 0528F RCMND FLW-UP 10 YRS DOCD, Modifiers: 1P , 15404 UPPER GI ENDOSCOPY, BIOPSY * * The named appointment provid er may or may not be the originator of this progress note, and it is not deemed complete until electronically signed by the appointment provider. Sign off status: Pending * Provider: Zenobia Guillen MD Date: 1 Generated for Janna martinez/Bharti/Cadence on: 0 06/05/2025 05:59 PM EDT
--- OUTSIDE RECORDS SUMMARY | 2025-04-03 07:00 | XMS_ITS ---
Author Organization Pop Cleveland MD Address [address] [place], [place] [id number] Care Team Providers Care Theatre Manager Name Role Phone Pop Cleveland Primary Care Provider [phone] Allergies No Known Allergies REASON FOR [...] Status Risk Notes Problem Old myocardial infarction (5138434) History of AL (myocardial infarction) (I25.2) Active confirmed Vital Signs Blood pressure systolic 72 mm Hg 04/03/20 25 Blood pressure diastolic 48 mm Hg 025 Height 71 in 04/03/2025 Weight 183 lbs 04/03/2025 BMI 25.52 kg/m2 04/03/2025 weight is down 5 pound [facility] e 01-31-25 Encounters Encounter Location Date Provider Diagnosis Pop Cleveland MD [address] [place] [address] [place] [phone] 04/03/2025 Pop Cleveland History of cardiac arrest Z86.74 and History of AL (myocardial infarction) I25.2 Assessments Encounter Date Diagnosis (ICD Code) Assessment Notes Treatment Notes Treatment Clinical Notes Section Notes 04/03/2025 History of cardiac arrest (ICD-10 - Z86.74) doing well 04/03/2025 History of AL (myocardial infarction) (ICD-10 - I25.2) is doing great. getting a stress test next week to see if his other lesions are significant Plan Of Treatment Treatment Notes Assessment Notes History of cardiac arrest doing well History of AL (myocardial infarction) is doing great. getting a stress test next week to see if his other lesions are significant Next Appt Details Follow Up: 2 Months, Reason: Provider Name:Pop house, 10/09/2025 07:15:00 AM, [address] [place] [address], [address], [phone], Provider Name:Pop house, 10/16/2025 10:30:00 AM, [address] [place] [address], [address], [phone], Progress Notes * Dario ALBARRAN CDOB:1960 (64 yo M)Acc No.[id number]:04/03/2025 Progress Notes Patient: Dario SHAFFER Provider: Sergio Cleveland MD :1960 A ge:64 Y S ex:Male Date:04/03/2025 Address:[address] [place], [place] [address]jean [place], [place] [facility] [id number] Subjective: * Chief Complaints: * 2 month * HPI: S ymptom(s): patient is a 64 yo male here for 2 month follow up visit/ has stress test coming up in one week. * ROS: G eneral/Constitutional: Denies C [...] of breath. G astrointestinal: Skyla D iarrhea. D encarrie N ausea. * Medical History: * Surgical [...] BP:90/60, Wt-k.01. weight is down 5 pound [facility] 01-31-25. * Examination: G eneral Examination: GENERAL APPEARANCE: a lert, well hydrated, in no distress.? HEAD: n ormocephalic. SKIN: g ood turgor. HEART: n o murmurs, rubs, gallops, regular rate and rhythm.? LUNGS: n o wheezes, rales, rhonchi, good air movement, clear to auscultation bilaterally. Assessment: * Assessment: 1. H istory of AL (myocardial infarction) - I25.2 (Primary) 2 . H istory of cardiac arrest - Z86.74 Plan: * Treatment: 2. H istory of cardiac arrest Notes: doing well * Procedure Codes: * Follow Up: 2 Months * * Sign off status: Completed true * Provider: Sergio Cleveland MD Date: 04/03/2025 Generated for Janna martinez/Bharti/Cadence on: 06/05/2025 05:59 PM EDT History and Physical Notes * [...]
--- OUTSIDE RECORDS SUMMARY | 2025-04-29 12:43 | XMS_ITS ---
Author Organization Pop Cleveland MD Address [address] [facility] [address] [place] [phone] Care Team Providers Care Ornamental Metal Worker Name Role Phone Pop Cleveland Primary Care Provider Medications Medication SIG (Take, Route, Frequency, Duration) Notes Start Date End Date Status Apixaban 2.5 MG as directed Orally t wice a day for 8 days 04/29/2025 Active Paxlovid (300/100) 20 x 150 MG & 10 x 100MG 3 tablets Orally Twice a day for 5 day(s) 04/29/2025 Active Encounters Encounter Location Date Provider Diagnosis Pop Cleveland MD [address] [place] [address] [place] [phone] 04/29/2025 Pop Cleveland Plan Of Treatment Medication Medication Name Sig Start Date Stop Date Notes Apixaban 2.5 MG as directed Orally t wice a day for 8 days 04/29/2025 Paxlovid (300/100) 20 x 150 MG & 10 x 100MG 3 tablets Orally Twice a day for 5 day(s) 04/29/2025 Next Appt Details Provider Name:Pop You ier, 10/09/2025 07:15:00 AM, [address] [place] [address], [address], [phone], Provider Name:Pop house, 10/16/2025 10:30:00 AM, [address] [place] [address], [address], [phone], Progress Notes * Dario ALBARRAN CDOB:1960 (64 yo M)Acc No.[id number]:04/29/2025 Patient: Dario SHAFFER :1960 A ge:64 Y S ex:Male Address:[address] [place] [address] , [place] [address] * Refills Start Apixaban Tablet, 2.5 MG, Orally, 16, as directed, twice a day, 8 days Start Paxlovid (300/100) Tablet Therapy Pack, 20 x 150 MG & 10 x 100MG, Orally, 30, 3 tablets, Twice a day, 5 day(s) * true * Date: Generated for Janna martinez/Bharti/Edvinitting on: 0 06/05/2025 06:00 PM EDT
--- OUTSIDE RECORDS SUMMARY | 2025-06-05 09:45 | XMS_ITS ---
Author Organization Pop Cleveland MD Address [address] [place], [place] [phone] Care Team Providers Care Bell Cleaner Name Role Phone Pop Cleveland Primary Care Provider Allergies No Known Allergies Results Component Value Reference Range Notes Liver Panel (Not yet reviewe d by provider) Interpretation: Performing Lab:[facility], [address] [place] [phone] Notes/Report: Bilirubin Total 0.9 0.0-1.0 mg/dL Bilirubin [...] Blood pressure systolic 72 mm Hg 06/05/20 25 Blood pressure diastolic 48 mm Hg 025 Height 71 in 06/05/2025 Weight 181 lbs 06/05/2025 BMI 25.24 kg/m2 06/05/2025 weight is down 2 pounds [facility] 04-03-25 Encounters Encounter Location Date Provider Diagnosis Pop Cleveland MD [address] [place] [address] [place] [phone] 06/05/2025 Pop Cleveland Elevated LFTs R79.89 and History of IA (myocardial infarction) I25.2 Assessments Encounter Date Diagnosis (ICD Code) Assessment Notes Treatment Notes Treatment Clinical Notes Section Notes 06/05/2025 Elevated LFTs (ICD-10 - R79.89) will check today to see if he can go on higher statin 06/05/2025 History of IA (myocardial infarction) (ICD-10 - I25.2) is doing well and not having any problems/ had a myocardial perfusion scan Plan Of Treatment Treatment Notes Assessment Notes Elevated LFTs will check today to see if he can go on higher statin History of IA (myocardial infarction) is doing well and not having any problems/ had a myocardial perfusion scan Pending Test Test Name Order Date Liver Panel 06/05/2025 Next Appt Details Follow Up: 4 Months, Reason: Provider Name:Pop house, 10/09/2025 07:15:00 AM, [address] [place] [address], [address] [place] [address], [phone], Provider Name:Pop house, 10/16/2025 10:30:00 AM, [address] [place] [address], [address], [phone], Progress Notes * Dario ALBARRAN CDOB:1960 (64 yo M)Acc No.[id number]:06/05/2025 Progress Notes Patient: Dario SHAFFER Provider: Sergio Cleveland MD :1960 A ge:64 Y S ex:Male Date:06/05/2025 Address:[address] [place] [address] , [facility] [id number] Subjective: * Chief Complaints: * 1 . 2 month. * HPI: S ymptom(s): patient is a [...] D enies N ausea. * Medical History: c olonoscopy 12/05/13, Dr. Guillen - 5 year f/u; Colonoscopy done 07/29/[address] Guillen - repeat 5 years colonoscopy 10/10/24 repeat 5y, Ultrasound kidneys need no further follow up. * Medications: T aking Farxiga 10 MG Tablet 1 tablet Orally Once a day , Taking Pantoprazole Sodium 40 MG Tablet Delayed Release 1 tablet 1/2 to 1 hour before morning meal Orally Once a day , Taking Atorvastatin Calcium 20 MG Tablet 1 tablet Orally Once a day , Taking Metoprolol Succinate ER 100 MG Tablet Extended Release 24 Hour 1 tablet Orally Once a day , Taking Spironolactone 25 MG Tablet 1 tablet Orally , Taking Entresto 24-26 MG Tablet 1 tablet Orally Twice a day , Taking Dapagliflozin Propanediol 10 MG Tablet 1 tablet Orally Once a day , Taking Clopidogrel Bisulfate 75 MG Tablet 1 tablet Orally Once a day , Taking Apixaban 5 MG Tablet as directed Orally , Not-Taking/PRN Apixaban 2.5 MG Tablet as directed Orally twice a day , Not-Taking/PRN LORazepam 1 MG Tablet 1 [...] as needed Inhalation every 4 hrs , Discontinued Omeprazole 40 MG Capsule Delayed Release 1 capsule 1/2 to 1 hour before morning meal Orally Once a day , Discontinued Paxlovid (300/100) 20 x 150 MG & 10 x 100MG Tablet Therapy Pack 3 tablets Orally Twice a day , Medication List reviewed and reconciled with the patient * Allergies: N .K.D.A. Objective: * Vitals: H t: 71, Wt: [...] R79.89 (Primary) 2 . H istory of IA (myocardial infarction) - I25.2 Plan: * Treatment: 2. H istory of IA (myocardial infarction) Notes: is doing well and not having any problems/ had a myocardial perfusion scan * Procedure Codes: 3 6415 VENIPUNCT, ROUTINE* * Follow Up: 4 Months * * The named appointment provid er may or may not be the originator of this progress note, and it is not deemed complete until electronically signed by the appointment provider. Sign off status: Pending * Provider: Sergio Cleveland MD Date: 0 06/05/2025 Generated for Janna martinez/Bharti/Cadence on: 0 06/05/2025 05:59 PM EDT History and Physical [...]
[2025-06-05 16:27] LABS: Alanine Aminotransferase 32 U/L (0-40); Albumin Level 4.5 g/dL (3.5-5.0); Alkaline Phosphatase 66 U/L (39-117); Aspartate Amino Transferase 37 U/L (5-37); Total Protein 6.8 g/dL (6.5-8.0)
--- OUTSIDE RECORDS SUMMARY | 2025-06-05 17:59 | XMS_ITS | Patient Health Record ---
Author Organization Pop Cleveland MD Address [address] [place], [place] [id number] Care Team Providers Care Auxiliary Equipment Tender Name Role Phone Pop Cleveland Primary Care Provider Allergies No Known Allergies Results Component Value Reference Range Notes Complete Blood Count Auto Di ff Reviewed date:09/29/2024 04:43:11 PM Interpretation: Performing Lab:[facility], [address] [place] [phone] Notes/Report: White Blood Count 6.4 4.8-10.8 X10*3/uL [...] NRBC Abs Auto 0.000 0.0-0.012 X10*3/uL Comprehensive [place]. Panel Fa st Reviewed date:09/29/2024 04:42:33 PM Interpretation: Performing Lab:[facility], [address] [place] [phone] Notes/Report: Sodium 142 135-145 mmol/L Potassium 4.3 [...] Panel Reviewed date:09/29/2024 04:43:23 PM Interpretation: Performing Lab:[facility], [address] [place] [phone] Notes/Report: Triglycerides 488 <150 mg/dL Desirable Triglyceride: [...] (Free>4and<10) Reviewed date:09/29/2024 04:42:40 PM Interpretation: Performing Lab:[address] [phone] Notes/Report: PSA,Total (Free>4and<10) 1.32 0.00-4.00 ng/mL A [...] Random Reviewed date:09/29/2024 04:42:47 PM Interpretation: Performing Lab:[facility], [address] [place] [phone] Notes/Report: Creatinine Urine 101.61 Microalbumin Urine 5.0 Microalbum/Creatinine Ratio Ur 4.9 <30 ug/mg cr Albumin/Creatinine Ratio Reference Ranges: Normal: < 30 ug/mg creatinine Microalbuminuria: 30 - 300 ug/mg creatinine Clinical Albuminuria: > 300 ug/mg creatinine Hemoglobin A1c Reviewed date:09/29/2024 04:42:24 PM Interpretation: Performing Lab:[facility], [address] [place] [phone] Notes/Report: Hemoglobin A1c % 5.6 <6.0 % [...] average glucose, using the formula of the [id number]-Rkxmwdw Average Glucose study (ADAG), Diabetes Care, Vol.31,#8, May. 2007 UA ClnCatch+Micro w/rflx Cul t Reviewed date:09/29/2024 04:43:46 PM Interpretation: Performing Lab:[facility], [address] [place] [phone] Notes/Report: Urine, Clean Catch Color Urine Yellow Appearance Urine Clear PH 5.5 5.0-9.0 Glucose Urine UA Negative Negative mg/dL Urine Blood Negative Negative Specific Lewis - Urine 1.015 1.005-1.025 Urine Protein Negative Neg-Trace mg/dL Urine Ketones Negative Negative mg/dL Nitrite Urine Negative Negative Leukocyte Esterase Urine Negative Negative RBC Urine 0-2 0-2 /HPF WBC Urine 0-5 0-5 /HPF Squamous Epithelial Cell Urine 0-2 0-2 /HPF Bacteria Urine None Seen None Seen Hyaline Casts Urine 0-2 0-2 /LPF Complete Blood Count Auto Di ff Reviewed date:02/02/2025 12:49:12 PM Interpretation: Performing Lab:[facility], [address] [place] [phone] Notes/Report: White Blood Count 5.2 4.8-10.8 X10*3/uL [...] NRBC Abs Auto 0.000 0.0-0.012 X10*3/uL Comprehensive [place]. Panel Fa st Reviewed date:02/02/2025 04:48:58 PM Interpretation: Performing Lab:[facility], [address] [place] [phone] Notes/Report: Sodium 141 135-145 mmol/L Potassium 4.0 [...] Panel Reviewed date:02/02/2025 12:46:25 PM Interpretation: Performing Lab:[facility], [address] [place] [phone] Notes/Report: Bilirubin Direct 0.3 0.0-0.5 mg/dL Lipid Panel Reviewed date:02/02/2025 12:46:37 PM Interpretation: Performing Lab:[facility], [address] [place] [phone] Notes/Report: Triglycerides 133 <150 mg/dL Desirable Triglyceride: [...] low results in patients with liver disease. Liver Panel (Not yet reviewe d by provider) Interpretation: Performing Lab:[facility], [address] [place] [phone] Notes/Report: Bilirubin Total 0.9 0.0-1.0 mg/dL Bilirubin Direct 0.4 0.0-0.5 mg/dL Aspartate Amino Transferase 37 5-37 U/L Alanine Aminotransferase 32 0-40 U/L Total Protein 6.8 6.5-8.0 g/dL Albumin Level 4.5 3.5-5.0 g/dL Alkaline Phosphatase 66 39-117 U/L Electrocardiogram (EKG) Reviewed date:10/07/2024 03:19:23 PM Interpretation: Performing Lab: Notes/Report: Pathology Reviewed date:10/13/2024 02:00:03 PM Interpretation: Performing Lab:[facility], [address] [place] [phone] Notes/Report: -- ---- Name: Dario Albarran Age/Sex: 64/M : 1960 Unit#: [id number] Attend Dr: Bob Guillen MD Re10/10/24 Status : [facility] Location: [facility] Disch: -- ---- SPEC : [id number] RECD : 10/10/24 STATUS: ESAU SUH NUM: [id number] JOHN: 10/10/[address] [facility] DR: Bob Guillen MD ENTERED: 10/10/24-09 03 [...] To: Pop Cleveland MD [facility] [address] [place], [place] [id number] CONTINUED ON NEXT PAGE -- ---- Name: Dario Albarran Age/Sex: 64/M : 1960 Unit#: [id number] Attend Dr: Bob Guillen MD Re10/10/24 Status : [facility] Location: [facility] Disch: -- ---- SPEC : [id number] RECD : 10/10/24 STATUS: ESAU SUH NUM: [id number] JOHN: 10/10/[address] [facility] DR: Bob Guillen MD ENTERED: 10/10/24-09 03 SP TYPE: Surgical OTHR DR: Pop Cleveland MD ORDERED: HE Stain/6, Gross Micro L4/2, Special st. 2, AB/PAS Copies To: (Continued) Bob Guillen MD [facility] [address] [place], [place] [id number] -- ---- Signed (signature on file) Raymond Villagomez MD 10/13/24 0957 -- ---- END OF REPORT US aorta Reviewed date:10/31/2024 02:58:04 PM Interpretation: Performing Lab: Notes/Report: [address] [address] Ultrasound Report Signed Patient: Dario Albarran MR#: [id number] 5 : 1960 Acct:[id number] Age/Sex: 64 / M ADM Date: 10/28/24 Loc: . Attending Dr: Pop Cleveland MD Ordering Physician: Pop Cleveland MD Date of Service: 10/28/24 Procedure(s): US aorta Accession Number(s): [id number] cc: Pop Cleveland MD CLINICAL HISTORY: FAMILY [...] in OV> 10/29/2453 DD/ 0 TD/TT: 10/29/24650 Surgical Supply Assistant: [address] [address] Ultrasound Report Signed Patient: Dario Albarran MR#: [id number] 5 : 1960 Acct:[id number] Age/Sex: 64 / M ADM Date: 10/28/24 Loc: HO.US Attending Dr: Pop Cleveland MD Ordering Physician: Pop Cleveland MD Date of Service: 10/28/24 Procedure(s): US aorta Accession Number(s): [id number] cc: Pop Cleveland MD CLINICAL HISTORY: FAMILY [...] in OV> 10/29/2453 DD/ 0 TD/TT: 10/29/24650 Surgical Supply Assistant: Danette Magana Reviewed date:02/02/2025 12:45:34 PM Interpretation: Performing Lab:[facility], [address] [place] [phone] Notes/Report: Danette Magana See Note Specimen held [...] AM >[facility] Annette 10/25/2024 02:17:16 PM > info given to patient by phone Referral Priority Routine Referral Appointment Date 11/16/2024 Medications Medication SIG (Take, Route, Frequency, Duration) Notes Start Date End Date Status Metoprolol Succinate ER 100 MG 1 tablet Orally Once a day Active Pantoprazole Sodium 40 MG 1 tablet 1/2 t o 1 hour before morning meal Orally Once a day Active LORazepam 1 MG 1 tablet at bedtime as needed Orally Once a day for 4 days 09/20/2021 Not-Taking Atorvastatin Calcium 20 MG 1 tablet Oral ly Once a day Active HYDROcodone-Acetaminophen 5-325 MG 1 tablet as needed Orally every 6 hrs for 5 days 09/20/2021 Not-Taking Apixaban 2.5 MG as directed Orally twice a day for 8 days 04/29/2025 Not-Taking Farxiga 10 MG 1 tablet Orally Once a day Active Clopidogrel Bisulfate 75 MG 1 tablet Ora lly Once a day Active Apixaban 5 MG as directed Orally Active Dapagliflozin Propanediol 10 MG 1 tablet Orally Once a day Active Spironolactone 25 MG 1 tablet Orally Active Ventolin HFA * 108 (90 Base) MCG/ACT 2 puffs as needed Inhalation every 4 hrs for 30 day(s) 06/28/2018 Not-Taking Entresto 24-26 MG 1 tablet Orally Twic e a day Active Cyclobenzaprine HCl 5 MG 1 tablet as nee ded Orally Three times a day for 10 days 04/12/2019 Not-Taking Immunizations Vaccine Route Administration Date Status Comme nts Flu Vaccine Unknown 08/02/2013 Administered Given at wo rk; [facility] Flu Vaccine Unknown 07/18/2014 Administered [facility] Fluarix Quadrivalent Unknown 06/30/2016 Administered [facility] Shingrix IM Intramuscular 07/02/2018 Administered Shingrix IM [...] Problem Status W/U Status Risk Notes Problem 64193535 Lymphocytosis (D72.820) Active confirmed Problem 81337895 Other chronic pain (G89.29) Active confirmed Problem 836919569 Lumbar disc disease (M51.9) Active confirmed Problem Essential hypertension (70474676) Essential hypertension (I10) Active confirmed Problem Prediabetes (245884614) Prediabetes (R73.09) Active confirmed Problem 161516009 High triglycerides (E78.1) Active confirmed Problem 857078971 Cervical disc disease (M50.90) Active confirmed Problem Old myocardial infarction (0923927) History of [place] (myocardial infarction) (I25.2) Active confirmed Problem 68884337 Sciatica of left side (M54.32) Active confirmed Problem 514918673 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 confirmed Problem 908981354 Renal cyst (N28.1) Active confirmed Problem 436232465 Kidney cyst, acquired (N28.1) Active confirmed Problem 2639530881856 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) Active confirmed Problem 077738722 Elevated cholesterol with high triglycerides (E78.2) Active confirmed Problem 93855062 Skin melanoma (C43.9) Active confirmed Vital Signs Blood pressure diastolic 48 mm Hg 06/05/2025 donovan ght is down 2 pounds since 04-03-25 Height 71 in 06/05/2025 weight is down 2 pounds since 04-03-25 Blood pressure systolic 72 mm Hg 06/05/2025 weig ht is down 2 pounds since 04-03-25 Weight 181 lbs 06/05/2025 weight is down 2 pounds since 04-03-25 BMI 25.24 kg/m2 06/05/2025 weight is down 2 pounds since 04-03-25 Encounters Encounter Location Date Provider Diagnosis Pop Cleveland MD [address] [place] [id number] 09/29/2024 Pop Cleveland Blood tests for routine general physical examination Z00.00 ; High triglycerides E78.1 ; Prediabetes R73.09 and Essential hypertension I10 Pop Cleveland MD [address] [place] [id number] 02/02/2025 Pop Cleveland Elevated LFTs R79.89 Pop Cleveland MD [address] [place] [id number] 06/05/2025 Pop Cleveland Elevated LFTs R79.89 and History of [place] (myocardial infarction) I25.2 Pop Cleveland MD [address] [place] [id number] 10/07/2024 Pop Cleveland Family history of abdominal [...] Pop Cleveland MD [address] [place] [id number] 12/01/2024 Pop Cleveland History of pneumonia Z87.01 ; ST elevation myocardial infarction involving left anterior descending (LAD) coronary artery I21.02 and History of cardiac arrest Z86.74 Pop Cleveland MD [address] [place] [id number] 12/15/[address] elevation myocardial infarction involving left anterior descending (LAD) coronary artery I21.02 and History of cardiac arrest Z86.74 Pop Cleveland MD [address] [place] [id number] 01/31/[address] elevation myocardial infarction involving left anterior descending (LAD) coronary artery I21.02 and History of cardiac arrest Z86.74 Pop Cleveland MD [address] [place] [id number] 04/03/2025 Pop Cleveland History of cardiac arrest Z86.74 and History of [place] (myocardial infarction) I25.2 Pop Cleveland MD [address] [place] [id number] 11/18/2024 Pop Cleveland MD [address] [place] [id number] 04/29/2025 Pop Cleveland Assessments Encounter Date Diagnosis (ICD Code) Assessment Notes Treatment Notes Treatment Clinical Notes Section Notes 09/29/2024 Blood tests for routine general physical examination (ICD-10 - Z00.00) 09/29/2024 High triglycerides (ICD-10 - E78.1) 02/02/2025 Elevated LFTs (ICD-10 - R79.89) 06/05/2025 Elevated LFTs (ICD-10 - R79.89) will check today to see if he can go on higher statin 10/07/2024 Family history of abdominal aortic aneurysm [...] no pains and 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 getting a stress test next week to see if his other lesions are significant 09/29/2024 Prediabetes (ICD-10 - R73.09) 06/05/2025 History of [place] (myocardial infarction) (ICD-10 - I25.2) is doing well and not having any problems/ had a myocardial perfusion scan 10/07/2024 Right tennis elbow (ICD-10 - M77.11) advised to where tennis elbow brace and ice 12/01/2024 History of cardiac arrest (ICD-10 - Z86.74) has been doing well p/hospital 12/15/2024 History of cardiac arrest (ICD-10 - Z86.74) is followed by [facility] and doing cardiac rehab 01/31/2025 History of cardiac arrest (ICD-10 - Z86.74) doing great waiting for echo to determine need for defibi=rillator 09/29/2024 Essential hypertension (ICD-10 - I10) 10/07/2024 [...] Order Date Electrocardiogram (EKG) 08/18/2019 Electrocardiogram (EKG) 07/17/2017 Electrocardiogram (EKG) 08/12/2018 CARDIOVASCULAR STRESS TEST 09/20/2021 CT ABD & PELVIS WITH CONTRAST 03/03/2017 XR CHEST 2 VIEW PA & LAT 12/01/2024 US ABD AORTA 10/07/2024 Complete Blood Count Auto Diff Comprehensive [place]. Panel Fast Liver Panel 06/05/2025 Lipid Panel 01/31/2025 Next Appt Details Provider Name:Popconchita You ier, 10/09/2025 07:15:00 AM, [address], [address], [place], [place], [phone], Provider Name:Popconchita You ier, 10/16/2025 10:30:00 AM, [address], [address], [place], [place], [id number], Insurance Providers Payer Name Payer Address Payer Phone Subscriber Number Group Number Insured Name Patient Relationship to Insured Coverage Start Date Coverage End Date [employer] [address] [place], [place] [id number] Dario Albarran Self - patient is the insured Medical (General) History Medical History History ICD Code colonoscopy 12/05/13, Dr. Donovan evangelista - 5 year f/u; Colonoscopy done 07/29/[address] Guillen - repeat 5 years colonoscopy 10/10/24 repeat 5y ultrasound kidneys need no further follo w up
--- OUTSIDE RECORDS SUMMARY | 2025-06-05 17:59 | XMS_ITS | Patient Health Record ---
Author Organization [facility] Address [address] [place] [address] Care Team Providers Care National Service Officer Name Role Phone Megha LEHMAN, Pop Primary Care Provider Bob Mejia Unavailable [phone] Allergies No Known Allergies Results Component Value Reference Range Notes Pathology Reviewed date:10/17/2024 11:07:09 PM Interpretation: Performing Lab:[facility], [address] [place] [id number] Notes/Report: Reason For Referral No Information Medications Medication SIG (Take, Route, Frequency, Duration) Notes Start Date End Date Status Spironolactone 25 MG TAKE 1 TABLET BY MOUTH EVERY DAY Oral for 90 Days Active Clopidogrel Bisulfate 75 MG TAKE 1 TABLET BY MOUTH EVERY DAY Oral for 30 Days Active Entresto 24-26 MG TAKE 1 TABLET BY MOUTH TWICE A DAY FOR 30 DAYS Oral for 30 Days Active Farxiga 10 MG TAKE 1 TABLET BY MOUTH EVERY DAY Oral for 30 Days Active Metoprolol Succinate ER 100 MG TAKE 1 TABLET BY MOUTH EVERY DAY Oral for 90 Days Active Omeprazole 40 MG 1 capsule 1/2 to 1 hour before morning meal Orally Once a day for 90 days 10/10/2024 Active Apixaban 5 MG as directed Orally Active Pantoprazole Sodium 40 MG 1 Orally Once a day--space apart from the Plavix by 10 to 12 hours for 90 days This will be replacing his omeprazole due to the concurrent use of Plavix. Thanks 03/01/2025 Active Atorvastatin Calcium 20 MG Oral for 90 Days Active Immunizations Vaccine Route Administration Date Status Comme nts Influenza Unknown 07/12/2018 Administered Influenza Unknown 09/13/2024 Administered Problems Problem Type SNOMED Code ICD Code Onset Dates Problem Status W/U Status Risk Notes Problem Colon cancer screening (141459587) Colon cancer screening (Z12.11) Active confirmed Problem Gastro-esophageal reflux disease without esophagitis (007085280) Gastro-esophageal reflux disease without esophagitis (K21.9) Active confirmed Problem 866679347 Encounter for screening for malignant neoplasm of colon (Z12.11) Active confirmed Problem Diverticular disease of colon (146213415) Diverticulosis of large intestine without perforation or abscess without bleeding (K57.30) Active confirmed Problem Erosive esophagitis (09652538) Erosive esophagitis (K22.10) Active confirmed Problem 959558631 Hx of adenomatou s colonic polyps (Z86.010) Active confirmed Problem 454000471 Abdominal pain, right upper quadrant (R10.11) Active confirmed Problem 097091319323822 Pre-procedural examination (Z01.818) Active confirmed Problem Gastroesophageal reflux disease (disorder) (959133534) Chronic GERD (K21.9) Active confirmed Vital Signs Temperature 96.9 degrees Fahrenheit 03/01/2025 Blood pressure diastolic 01 mm Hg 03/01/2025 Height 71 in 03/01/2025 Blood pressure systolic 001 mm Hg 03/01/2025 Weight 182.6 lbs 03/01/2025 BMI 25.46 kg/m2 03/01/2025 Encounters Encounter Location Date Provider Diagnosis [facility] Outpatient [address] [place] [phone] 10/10/2024 Bob Guillen Colon cancer screeni ng Z12.11 ; Colon polyps K63.5 ; Diverticulosis of large intestine without perforation or abscess without bleeding K57.30 ; Other hemorrhoids K64.8 ; Gastro-esophageal reflux disease without esophagitis K21.9 ; Erosive esophagitis K22.10 and Hiatal hernia K44.9 [facility] [address] [place] [id number] 09/28/2024 Bob Guillen Colon cancer screeni ng Z12.11 ; Chronic GERD K21.9 and Hx of adenomatous colonic polyps Z86.010 [facility] [address] [place] [phone] 03/01/2025 Bob Guillen Hx of adenomatous colonic polyps Z86.010 ; Erosive esophagitis K22.10 and Chronic GERD K21.9 [facility] [address] [place] [address] 10/10/2024 Bob Guillen [facility] [address] [place] [address] 10/17/2024 Bob Guillen Assessments Encounter Date Diagnosis [...] to keep you advised of his progress. 03/01/2025 Erosive esophagitis (ICD-10 - K22.10) Continue medicine for the reflux-I will send over a new medication to replace the omeprazole Avoid alcohol and all NSAIDs like Advil, Motrin, etc, while on the 2 blood thinners Overall, Chelita appears quite well. His reflux seems to be significantly improved since having started his PPI. We did review the endoscopy findings and I advised him to continue the PPI given the finding of the esophageal ulcer and erosive esophagitis, as well as the fact that he is now on blood thinners. I did advise him that I would typically recommend a follow-up endoscopy to be sure the small ulcer is healed and to obtain further biopsies if it has not, but given his recent WI and the fact that he is on blood thinners would make me inclined to hold off on that for at least the time being. I know the cardiologists typically do not want to stop the blood thinners when patients have new stents in for at least 6 to 12 months. We also reviewed that omeprazole is felt to possibly interact with Plavix more than other PPIs. As such, I shall switch him to pantoprazole 40 mg daily instead of the omeprazole. I did advise him to take the Plavix and the pantoprazole about 10 to 12 hours apart. I did advise him to let me know if the pantoprazole does not work as well. We did review his colonoscopy findings and the need for a follow-up colonoscopy in 2028 for follow-up. At this point, if things remain well from a GI standpoint, I would plan to see him in 1 year for a follow-up office visit. We could always consider repeating an upper endoscopy at that time if need be. I did advise him to contact me before that if he has any problems or questions I can be of assistance with. Chelita was comfortable with this plan. Thank you again for allowing me to participate in Chelita's care. I shall continue to keep you advised of his progress.. 03/01/2025 Hx of adenomatous colonic polyps (ICD-10 - Z86.010) Repeat colonoscopy in 2028 Overall, Chelita appears quite well. His reflux seems to be significantly improved since having started his PPI. We did review the endoscopy findings and I advised him to continue the PPI given the finding of the esophageal ulcer and erosive esophagitis, as well as the fact that he is now on blood thinners. I did advise him that I would typically recommend a follow-up endoscopy to be sure the small ulcer is healed and to obtain further biopsies if it has not, but given his recent WI and the fact that he is on blood thinners would make me inclined to hold off on that for at least the time being. I know the cardiologists typically do not want to stop the blood thinners when patients have new stents in for at least 6 to 12 months. We also reviewed that omeprazole is felt to possibly interact with Plavix more than other PPIs. As such, I shall switch him to pantoprazole 40 mg daily instead of the omeprazole. I did advise him to take the Plavix and the pantoprazole about 10 to 12 hours apart. I did advise him to let me know if the pantoprazole does not work as well. We did review his colonoscopy findings and the need for a follow-up colonoscopy in 2028 for follow-up. At this point, if things remain well from a GI standpoint, I would plan to see him in 1 year for a follow-up office visit. We could always consider repeating an upper endoscopy at that time if need be. I did advise him to contact me before that if he has any problems or questions I can be of assistance with. Chelita was comfortable with this plan. Thank you again for allowing me to participate in Chelita's care. I shall continue to keep you advised of his progress.. 10/10/2024 Diverticulosis of large intestine without perforation [...] to keep you advised of his progress. 03/01/2025 Chronic GERD (ICD-10 - K21.9) Overall, Chelita appears quite well. His reflux seems to be significantly improved since having started his PPI. We did review the endoscopy findings and I advised him to continue the PPI given the finding of the esophageal ulcer and erosive esophagitis, as well as the fact that he is now on blood thinners. I did advise him that I would typically recommend a follow-up endoscopy to be sure the small ulcer is healed and to obtain further biopsies if it has not, but given his recent WI and the fact that he is on blood thinners would make me inclined to hold off on that for at least the time being. I know the cardiologists typically do not want to stop the blood thinners when patients have new stents in for at least 6 to 12 months. We also reviewed that omeprazole is felt to possibly interact with Plavix more than other PPIs. As such, I shall switch him to pantoprazole 40 mg daily instead of the omeprazole. I did advise him to take the Plavix and the pantoprazole about 10 to 12 hours apart. I did advise him to let me know if the pantoprazole does not work as well. We did review his colonoscopy findings and the need for a follow-up colonoscopy in 2028 for follow-up. At this point, if things remain well from a GI standpoint, I would plan to see him in 1 year for a follow-up office visit. We could always consider repeating an upper endoscopy at that time if need be. I did advise him to contact me before that if he has any problems or questions I can be of assistance with. Chelita was comfortable with this plan. Thank you again for allowing me to participate in Chelita's care. I shall continue to keep you advised of his progress.. 10/10/2024 Other hemorrhoids (ICD-10 - K64.8) 10/10/2024 Gastro-esophageal reflux disease without esophagitis (ICD-10 - K21.9) 10/10/2024 Erosive esophagitis (ICD-10 - K22.10) 10/10/2024 Hiatal hernia (ICD-10 - K44.9) Plan Of Treatment Future Test Test Name Order Date COLONOSCOPY 02/16/2013 COLONOSCOPY 11/25/2018 UPPER GI ENDOSCOPY 09/28/2024 COLONOSCOPY 09/28/2024 Next Appt Details Provider Name:Bob Guillen , 02/28/2026 01:00:00 PM, [address] [facility], [address], [place], [address], Insurance Providers Payer Name Payer Address Payer Phone Subscriber Number Group Number Insured Name Patient Relationship to Insured Coverage Start Date Coverage End Date [facility] [employer] [address] [place] [address] [phone] [id number] CHELITA JAMISON Self - patient is the insured Medical (General) History Medical History History ICD Code Colonoscopy 3-17-2007-1 smal l tubular adenoma removed; also noted were small internal hemorrhoids and occasional diverticulosis; colonoscopy in 11/2013-small tubular adenoma removed IBS Hx of a bleeding ulcer which required tr ansfusions in high school. Denies WI,DM,CVA,Lung disease,renal dise ase Chronic right upper quadrant discomfort with a negative gallbladder ultrasound in 2015 Colonoscopy 07/2019 with a small tubular adenoma HTN Malignant melanoma on scalp 2022 Follow-up screening colonosc opy in September 2024 revealed a small hyperplastic polyp that was removed GERD--upper endoscopy in Sep revealed a small hiatal hernia and a small area of erosive esophagitis with a small ulceration. Biopsies were negative for Hopper's esophagus or any other pathology other than esophagitis. He was started on omeprazole 40 mg daily at that time. WI with cardiac arrest --had 2 stents placed, EF 44% on 02/2025 ECHO--had an external defibrillator for 3 months Afib during the above hospitalization fo r his WI Surgical History Surgery Date(Month/Year) stents in heart Removal of malignant melanoma from scalp in 09/2023 Left shoulder Hospitalization History Reason Date(Month/Year) stents in heart
--- OUTSIDE RECORDS SUMMARY | 2025-06-05 18:00 | XMS_ITS | Clinical Summary ---
Author Organization [facility] Address [address] [place] [address] Phone Care Team Providers Care Political Reporter Name Role Phone Pop Cleveland MD Primary Care Provider Allergies No known active allergies Medications atorvastatin (LIPITOR) 20 MG tablet Take 20 mg by mouth daily. 01/03/2025 Active pantoprazole (PROTONIX) 40 MG tablet Take 40 mg by mouth daily. 03/01/2025 Active ELIQUIS 5 mg tablet Take 5 mg by mouth 2 (two) times a day. Active FARXIGA 10 mg tablet Take 10 mg by mouth daily. Active clopidogrel (PLAVIX) 75 mg tablet Take 75 mg by mouth daily. 02/07/2025 Active ENTRESTO 24-26 mg per tablet Take 2 tablets by mouth 2 (two) times a day. 02/15/2025 Active metoprolol succinate (TOPROL-XL) 100 MG 24 hr tablet Take 100 mg by mouth daily. 02/07/2025 Active spironolactone (ALDACTONE) 25 MG tablet Take 25 mg by mouth daily. 02/07/2025 Active scopolamine (TRANSDERM-SCOP ) 1 mg over [address] 1 patch onto the skin as needed. Active Active Problems Problem Noted Date Diagnosed Date ST elevation myocardial infa rction involving left anterior descending (LAD) coronary artery 04/17/2025 Cardiac arrest with ventricular fibrillation 04/2025 LV dysfunction 04/17/2025 Essential hypertension 04/17/2025 Hyperlipidemia 04/17/2025 Gastroesophageal reflux disease 04/17/2025 Coronary artery disease invo lving [place] coronary artery of [place] heart without angina pectoris 04/17/2025 Encounters Date Type Department Care Team Description 04/17/2025 2:00 PM EDT Office Visit [facility] [address] [place] [phone] Zhen Steve MD Coronary artery disease involving [place] coronary artery of [place] heart without angina pectoris (Primary Dx); ST elevation myocardial infarction involving left anterior descending (LAD) coronary artery; Cardiac arrest with ventricular fibrillation; LV dysfunction; Essential hypertension; Hyperlipidemia, unspecified hyperlipidemia type; Gastroesophageal reflux disease, unspecified whether esophagitis present 04/17/2025 Orders Only [facility] [address] [place] [phone] Zhen Steve MD 04/13/2025 Orders Only [facility] [address] [place] [phone] Zhen Steve MD 04/12/2025 Ancillary Orders [facility] [address] [place] [address] Zhen Steve MD 04/07/2025 Ancillary Procedure [facility] [address] [place] [address] Zhen Steve MD 04/06/2025 Ancillary Orders [facility] [address] [place] [address] Zhen Steve MD 04/06/2025 Ancillary Orders [facility] [address] [place] [address] Zhen Steve MD 04/06/2025 Ancillary Orders [facility] [address] [place] [address] Zhen Steve MD from Last 3 Months Social History Tobacco Use Types Packs/Day Years Used Date Smoking Tobacco: Never Smokeless Tobacco: Never Tobacco Cessation:Counseling Given: Not Answered Education Answer Date Recorded Are you interested in more education? Not on martine e 01/27/2025 Are you concerned about learning? Not on file 01/27/2025 No 01/27/2025 No 01/27/2025 Digital Access Answer Date Recorded No 01/27/2025 No 01/27/2025 Reliable internet access at home? Not on file 01/27/2025 Device with a working camera? Not on file Sex and Gender Information Value Date Recorded Sex Assigned at Not on file Legal Sex Male 4:00 PM EDT Gender Identity Not on file Sexual Orientation Not on file Last Filed Vital Signs Vital Sign Reading Time Taken Comments Blood Pressure 122/70 04/17/2025 2:05 PM EDT Pulse 58 04/17/2025 2:05 PM EDT Temperature - - Respiratory Rate - - Oxygen Saturation 98% 04/17/2025 2:05 PM EDT Inhaled Oxygen Concentration - - Weight 81.3 kg (179 lb 3.2 oz) 04/17/2025 2:05 P M EDT w shoes Height - - Body Mass Index - - Plan of Treatment Health Maintenance Due Date Last Done Comments CREATININE LEVEL 1958 POTASSIUM LEVEL 1958 DEPRESSION SCREENING 1970 HEPATITIS C SCREENING 1976 COLOGUARD 2003 COLONOSCOPY 2003 COLORECTAL CANCER SCREENING 2003 FIT TEST 2003 FOBT 2003 SIGMOIDOSCOPY 2003 VIRTUAL COLONOSCOPY 2003 PNEUMOCOCCAL VACCINES (50+ years) (1 of 1 - PCV) 2008 LIPID PANEL 08/17/2019 08/17/2018 COVID-19 VACCINE ( season) 2025 09/20/2024, 09/18/2023, 09/18/2023, Additional history exists BLOOD PRESSURE 10/18/2025 04/17/2025 Adult Td,Tdap Booster 03/30/2034 03/30/2024 ZOSTER VACCINES Completed 11/25/2018, 07/02/2018 RSV VACCINE Completed 08/03/2023 SMOKING STATUS SCREENING (Once After 26 Yrs) Completed 04/17/2025 HEPATITIS A VACCINES Aged Out No long er eligible based on patient's age to complete this topic HIB VACCINES Aged Out No longer eligi ble based on patient's age to complete this topic MENINGOCOCCAL VACCINES (ACWY) Aged Out No longer eligible based on patient's age to complete this topic MENINGOCOCCAL VACCINES (B) Aged Out N o longer eligible based on patient's age to complete this topic Medical Devices Not on file Procedures Procedure Name Priority Date/Time Associated Diagnosis Comments ECG 12-LEAD Routine 04/17/2025 2:03 PM EDT NM OTHER OUTSIDE (NO INTERPRETATION) Routine 04/07/2025 12:00 AM EDT from Last 3 Months Results * ECG 12-LEAD (04/17/2025 2:03 PM EDT) Ventricular Rate EKG/MIN 58 BPM [facility] Atrial Rate 58 BPM [facility] VA Interval 172 ms [facility] QRS Duration 114 ms [facility] QT Interval 408 ms [facility] QTC Interval 400 ms [facility] P [place] 50 degrees [facility] R Wave [place] -12 degrees [facility] T Wave [place] 82 degrees [facility] 04/17/2025 2:03 PM EDT Narrative [facility] - 04/19/2025 4:25 PM EDT Sinus bradycardia Low voltage QRS, consider pulmonary disease, pericardial effusion, or normal variant Anterolateral myocardial infarction , age undetermined Abnormal ECG No previous ECGs available us Zhen Steve MD ECG ORDERABLES Final Result Performing Organization Address [facility]/ZIP Co de Phone Number [facility] * NM Other Outside (No Interpretation) (04/07/2025 12:00 AM EDT) Narrative [facility] - 04/12/2025 1:44 PM EDT This study is for PACS storage only and not for interpretation. us Zhen Steve MD IMG OUTSIDE IMAGING W/OUT IN TERPRETATION Final Result [facility] from Last 3 Months Insurance [facility] MEDICARE PPO BLUE [place] [address] [address] [place] [address] MEDICARE PPO BLUE [place]PLACEMENT [place] [address] MEDICARE PPO BLUE REPLACEMENT [facility] MEDICARE PPO BLUE [place]PLACEMENT [place] [address] MEDICARE PPO BLUE REPLACEMENT [facility] MEDICARE PPO BLUE REPLACEMENT Care Teams Political Reporter Relationship Specialty Start Date End Date Pop Cleveland MD [address] [place] [address] [place] [id number] PCP - General Internal Medicine 01/27/25 Additional Source Comments The information contained in this document represents components of the legal health record. It is not the complete legal health record.[facility]
== END 2025-06-05 16:04 | disposition home or self-care (01) ==
LOC: HO.LNP 16:03
PROVIDERS: Visit Provider Internal Medicine
DX: R79.89 Other specified abnormal findings of blood chemistry (principal)
CPT/HCPCS: 80076

== ENCOUNTER 2025-09-26 11:32 | Outpatient (REF) | payer MEDICARE, SELFPAY ==
--- OUTSIDE RECORDS SUMMARY | 2024-10-10 03:40 | XMS_ITS ---
Author Organization [facility] Address [address] [place] [address] Care Team Providers Care Medical Equipment Sales Name Role Phone Pop Cleveland MD Primary Care Provider Bob Mejia [phone] REASON FOR VISIT SCREENING COLON, gerd Problems Problem Type SNOMED Code ICD Code Onset Dates Problem Status W/U Status Risk Notes Problem Diverticular disease of colon (731387314) Diverticulosis of large intestine without perforation or abscess without bleeding (K57.30) Active confirmed Problem Gastro-esophagea l reflux disease without esophagitis (969581722) Gastro-esophageal reflux disease without esophagitis (K21.9) Active confirmed Problem Erosive esophagitis (47348413) Erosive esophagitis (K22.10) Active confirmed Encounters Encounter Location Date Provider Diagnosis [facility] Outpatient [address] [place] [phone] 10/10/2024 Bob Guillen Colon cancer scree shi Z12.11 ; Colon polyps K63.5 ; Diverticulosis of large intestine without perforation or abscess without bleeding K57.30 ; Other hemorrhoids K64.8 ; Gastro-esophageal reflux disease without esophagitis K21.9 ; Erosive esophagitis K22.10 and Hiatal hernia K44.9 Assessments Encounter Date Diagnosis (ICD Code) Assessment Notes Treatment Notes Treatment Clinical Notes Section Notes 10/10/2024 Colon cancer screening (ICD-10 - Z12.11) 10/10/2024 Colon polyps (ICD-10 - K63.5) 10/10/2024 Diverticulosis of large intestine without perforation or abscess without bleeding (ICD-10 - K57.30) 10/10/2024 Other hemorrhoids (ICD-10 - K64.8) 10/10/2024 Gastro-esophageal reflux disease without esophagitis (ICD-10 - K21.9) 10/10/2024 Erosive esophagitis (ICD-10 - K22.10) 10/10/2024 Hiatal hernia (ICD-10 - K44.9) Plan Of Treatment Next Appt Details Provider Name:Bob Pérez Mindy , 02/28/2026 01:00:00 PM, [address] [place] [address], [address], [place], [phone], Progress Notes * CHELITA JAMISON CDOB:1960 (65 yo M)Acc No.[id number]:10/10/2024 EGD and COL/MAC Patient: CHELITA SHAFFER Provider: Zenobia Guillen MD :1960 A ge:64 Y S ex:Male Date:10/10/2024 Address:[address] [place] [address] , [id number] Pcp:Pop Cleveland MD Subjective: * Chief Complaints: * S CREENING COLON, gerd Assessment: * Assessment: 1. C olon cancer screening - Z12.11 (Primary) 2 . C olon polyps - K63.5? 3. D iverticulosis of large intestine without perforation or abscess without bleeding - K57.30 4 . O ther hemorrhoids - K64.8 5 . G oli-esophageal reflux disease without esophagitis - K21.9 6 . E rosive esophagitis - K22.10 7 . H iatal hernia - K44.9 Plan: * Procedure Codes: 4 5380 COLONOSCOPY AND BIOPSY, Modifiers: PT 0529F INTRVL 3+YRS PTS CLNSCP [id number] RCMND FLW-UP 10 YRS DOCD, Modifiers: 1P 58585 UPPER GI ENDOSCOPY, BIOPSY Billing Information: * Procedure Codes: 66046 COLONOSCOPY AND BIOPSY. Modifiers: PT 0529F INTRVL 3+YRS PTS CLNSCP DOCD. 0528F RCMND FLW-UP 10 YRS DOCD. Modifiers: 1P 23667 UPPER GI ENDOSCOPY, BIOPSY. * The named appointment provid er may or may not be the originator of this progress note, and it is not deemed complete until electronically signed by the appointment provider. Sign off status: Pending * Provider: Zenobia Guillen MD Date: Generated for Janna martinez/Bharti/Cadence on: 11/27/2024 03:25 PM EST
--- OUTSIDE RECORDS SUMMARY | 2024-11-18 05:21 | XMS_ITS ---
Author Organization Pop Cleveland MD Address [address] [place] [phone] Care Team Providers Care Supervisor Counseling And Guidance Name Role Phone Pop Cleveland Primary Care Provider REASON FOR VISIT Discharge summary rec'd Encounters Encounter Location Date Provider Diagnosis Pop [facility] MD [address] [facility] [address] [place], [place] [phone] 11/18/2024 Pop Cleveland Plan Of Treatment Next Appt Details Provider Name:Pop You ier, 10/16/2025 10:30:00 AM, [address], [address], [place], [place], [phone], Progress Notes * Dario ALBARRAN CDOB:1960 (64 yo M)Acc No.[id number]:11/18/2024 Patient: Thai NAVARRODario :1960 A ge:64 Y S ex:Male Address:[address] [place] [address] * true * Date: Generated for Printi ng/Faxing/eTransmitting on: 11/27/2024 03:24 PM EST
--- OUTSIDE RECORDS SUMMARY | 2024-12-01 05:00 | XMS_ITS ---
Author Organization Pop [facility] MD Address [address] [place], [place] [phone] Care Team Providers Care Manager Inventory Management Name Role Phone Pop Cleveland Primary Care Provider [phone] Allergies No Known Allergies REASON FOR VISIT PH/TCM, Accompanied by Medications Medication SIG (Take, Route, Frequency, Duration) Notes Start Date End Date Status HYDROcodone-Acetaminophen 5-325 MG 1 tablet as needed Orally every 6 hrs for 5 days 09/20/2021 Not-Taking LORazepam 1 MG 1 tablet at bedtime as needed Orally Once a day for 4 days 09/20/2021 Not-Taking Ventolin HFA * 108 (90 Base) MCG/ACT 2 puffs as needed Inhalation every 4 hrs for 30 day(s) 06/28/2018 Not-Taking Cyclobenzaprine HCl 5 MG 1 tablet as nee ded Orally Three times a day for 10 days 04/12/2019 Not-Taking Clopidogrel Bisulfate 75 MG 1 tablet Ora lly Once a day Active Apixaban 5 MG as directed Orally Active Omeprazole 40 MG 1 capsule 1/2 to 1 hour before morning meal Orally Once a day Active Dapagliflozin Propanediol 10 MG 1 tablet Orally Once a day Active Metoprolol Succinate 100 MG 1 capsule Or ally Once a day Active Spironolactone 25 MG 1 tablet Orally Active Entresto 24-26 MG 1 tablet Orally Twic e a day Active Vital Signs Blood pressure systolic 92 mm Hg 12/01/19 25 Blood pressure diastolic 64 mm Hg 025 Height 71 in 12/01/2024 Weight 189 lbs 12/01/2024 BMI 26.36 kg/m2 12/01/2024 Encounters Encounter Location Date Provider Diagnosis Pop Cleveland MD [address] [place], [place] [phone] 12/01/2024 Pop Cleveland History of pneumonia Z87.01 ; ST elevation myocardial infarction involving left anterior descending (LAD) coronary artery I21.02 and History of cardiac arrest Z86.74 Assessments Encounter Date Diagnosis (ICD Code) Assessment Notes Treatment Notes Treatment Clinical Notes Section Notes 12/01/2024 History of pneumonia (ICD-10 - Z87.01) pending diagnostic testing 12/01/2024 ST elevation myocardial infarction involving left anterior descending (LAD) coronary artery (ICD-10 - I21.02) having no pains and is anxious to see recooperer 12/01/2024 History of cardiac arrest (ICD-10 - Z86.74) has been doing well p/hospital Plan Of Treatment Treatment Notes Assessment Notes History of pneumonia pending diagnostic testing ST elevation myocardial infa rction involving left anterior descending (LAD) coronary artery having no pains and is anxious to see recooperer History of cardiac arrest has been doing well p/hospital Pending Test Test Name Order Date XR CHEST 2 VIEW PA & LAT 12/01/2024 Next Appt Details Follow Up: 2 Weeks, Reason: Provider Name:Pop You ier, 10/16/2025 10:30:00 AM, [address], [address], [place], [place], [phone], Progress Notes * Dario ALBARRAN CDOB:1960 (64 yo M)Acc No.[id number]:12/01/2024 Patient: Dario SHAFFER Provider: Sergio Cleveland MD :1960 A ge:64 Y S ex:Male Date:12/01/2024 Address: [address], [id number] Subjective: * Chief Complaints: * P H/TCMAccompanied by * HPI: S ymptom(s): patient is a 64 yo male here for follow up from hospitalization, discharge summary has been reviewed and medications recocilled. . starting rehab next week. * ROS: G eneral/Constitutional: Denies C hills. D enies F atigue. D enies F ever. D enies H eadache. E NT: Patient denies d ecreased sense of smell, any loss of taste, sore throat. D enies S ore throat. R espiratory: Denies C ough. D enies S hortness of breath at rest. D enies S hortness of breath with exertion. C ardiovascular: Patient denies O RTHOPNEA. G astrointestinal: Denies D iarrhea. D enies N ausea. M usculoskeletal: Patient denies m uscle aches. P eripheral Vascular: Patient denies r ed and blue toes. * Medical History: * Surgical History: * Hospitalization/Major Diagno stic Procedure: * Medications: T akingSpironolactone 25 MG Tablet 1 tablet Orally Entresto 24-26 MG Tablet 1 tablet Orally Twice a day Omeprazole 40 MG Capsule Delayed Release 1 capsule 1/2 to 1 hour before morning meal Orally Once a day Metoprolol Succinate 100 MG Capsule ER 24 Hour Sprinkle 1 capsule Orally Once a day Dapagliflozin Propanediol 10 MG Tablet 1 tablet Orally Once a day Clopidogrel Bisulfate 75 MG Tablet 1 tablet Orally Once a day Apixaban 5 MG Tablet as directed Orally Taking Spironolactone 25 MG Tablet 1 tablet Orally Taking Entresto 24-26 MG Tablet 1 tablet Orally Twice a day Taking Omeprazole 40 MG Capsule Delayed Release 1 capsule 1/2 to 1 hour before morning meal Orally Once a day Taking Metoprolol Succinate 100 MG Capsule ER 24 Hour Sprinkle 1 capsule Orally Once a day Taking Dapagliflozin Propanediol 10 MG Tablet 1 tablet Orally Once a day Taking Clopidogrel Bisulfate 75 MG Tablet 1 tablet Orally Once a day Taking Apixaban 5 MG Tablet as directed Orally Not-Taking/PRNLORazepam 1 MG Tablet 1 tablet at bedtime as needed Orally Once a day HYDROcodone-Acetaminophen 5-325 MG Tablet 1 tablet as needed Orally every 6 hrs Cyclobenzaprine HCl 5 MG Tablet 1 tablet as needed Orally Three times a day Ventolin HFA * 108 (90 Base) MCG/ACT Aerosol Solution 2 puffs as needed Inhalation every 4 hrs Not-Taking/PRN LORazepam 1 MG Tablet 1 tablet at bedtime as needed Orally Once a day Not-Taking/PRN HYDROcodone-Acetaminophen 5-325 MG Tablet 1 tablet as needed Orally every 6 hrs Not-Taking/PRN Cyclobenzaprine HCl 5 MG Tablet 1 tablet as needed Orally Three times a day Not-Taking/PRN Ventolin HFA * 108 (90 Base) MCG/ACT Aerosol Solution 2 puffs as needed Inhalation every 4 hrs DiscontinuedValsartan 80 MG Tablet TAKE 1 TABLET BY MOUTH EVERY DAY Medication List reviewed and reconciled with the patientDiscontinued Valsartan 80 MG Tablet TAKE 1 TABLET BY MOUTH EVERY DAY Medication List reviewed and reconciled with the patient * Allergies: N .K.D.A.yes[Allergies Verified] Objective: * Vitals: H t: 71, Wt: 189, BMI:26.36, BP:92/64, Wt-k.73. * Examination: G eneral Examination: GENERAL APPEARANCE: a lert, well hydrated, in no distress.? HEAD: n ormocephalic. HEART: n o murmurs, rubs, gallops, regular rate and rhythm.? LUNGS: n o wheezes, rales, rhonchi, good air movement, clear to auscultation bilaterally. EXTREMITIES: n o edema. Assessment: * Assessment: 1. S T elevation myocardial infarction involving left anterior descending (LAD) coronary artery - I21.02 (Primary) 2 . H istory of pneumonia - Z87.01 3 . H istory of cardiac arrest - Z86.74 Plan: * Treatment: 2. H istory of pneumonia I maging: XR CHEST 2 VIEW PA & LAT Notes: pending diagnostic testing 3. H istory of cardiac arrest Notes: has been doing well p/hospital * Procedure Codes: * Follow Up: 2 Weeks * * Sign off status: Completed true * Provider: Sergio Cleveland MD Date: 0 12/01/2024 Generated for Janna martinez/Bharti/Edvinitting on: 1 11/27/2024 03:24 PM EST History and Physical Notes * HPI (History of Present Illness) Category Sub-Category Detail Notes Category Not es Symptom(s) patient is a 64 yo male here for follow up from hospitalization, discharge summary has been reviewed and medications recocilled. . starting rehab next week. Examination Category Sub-Category Detail Notes Category Not es General Examination GENERAL APPEARANCE: alert, w ell hydrated, in no distress HEAD: normocephalic HEART: no murmurs, rubs, ga llops, regular rate and rhythm LUNGS: no wheezes, rales, r honchi, good air movement, clear to auscultation bilaterally EXTREMITIES: no edema
--- OUTSIDE RECORDS SUMMARY | 2024-12-08 03:30 | XMS_ITS ---
Author Organization Pop Cleveland MD Address [address] [place] [phone] Care Team Providers Care Summer Camp Counselor Name Role Phone Pop Cleveland Primary Care Provider REASON FOR VISIT CBC with diff, liver panel lipids panel Encounters Encounter Location Date Provider Diagnosis Pop Cleveland MD [address] [place] [address] [place] [phone] 12/08/2024 Pop Cleveland Plan Of Treatment Next Appt Details Provider Name:Pop You ier, 10/16/2025 10:30:00 AM, [address] [place] [address], Suite [facility], [place], [place], [phone], Progress Notes * Dario ALBARRAN CDOB:1960 (65 yo M)Acc No.[id number]:12/08/2024 Progress Note Patient: Dario SHAFFER Provider: Sergio Cleveland MD :1960 A ge:64 Y S ex:Male Date:12/08/2024 Address:[address] [place] [address] [place] Subjective: * Chief Complaints: * 1 . CBC with diff, liver panel lipids panel. * Medical History: Objective: * Vitals: Assessment: Plan: * Treatment: * * The named appointment provid er may or may not be the originator of this progress note, and it is not deemed complete until electronically signed by the appointment provider. Sign off status: Pending * Provider: Sergio Cleveland MD Date: 0 12/08/2024 Generated for Janna martinez/Bharti/Edvinitting on: 1 11/27/2024 03:25 PM EST
--- OUTSIDE RECORDS SUMMARY | 2024-12-15 08:30 | XMS_ITS ---
Author Organization Pop Cleveland MD Address [address] [place] [phone] Care Team Providers Care Booth Operator Name Role Phone Pop Cleveland Primary Care Provider [phone] Allergies No Known Allergies REASON FOR VISIT 2 week Medications Medication SIG (Take, Route, Frequency, Duration) Notes Start Date End Date Status LORazepam 1 MG 1 tablet at bedtime as needed Orally Once a day for 4 days 09/20/2021 Not-Taking HYDROcodone-Acetaminophen 5-325 MG 1 tablet as needed Orally every 6 hrs for 5 days 09/20/2021 Not-Taking Apixaban 5 MG as directed Orally Active Cyclobenzaprine HCl 5 MG 1 tablet as nee ded Orally Three times a day for 10 days 04/12/2019 Not-Taking Ventolin HFA * 108 (90 Base) MCG/ACT 2 puffs as needed Inhalation every 4 hrs for 30 day(s) 06/28/2018 Not-Taking Clopidogrel Bisulfate 75 MG 1 tablet Ora lly Once a day Active Spironolactone 25 MG 1 tablet Orally Active Omeprazole 40 MG 1 capsule 1/2 to 1 hour before morning meal Orally Once a day Active Dapagliflozin Propanediol 10 MG 1 tablet Orally Once a day Active Entresto 24-26 MG 1 tablet Orally Twic e a day Active Metoprolol Succinate ER 100 MG 1 tablet Orally Once a day Active Vital Signs Blood pressure systolic 82 mm Hg 12/16/19 25 Blood pressure diastolic 44 mm Hg 025 Height 71 in 12/15/2024 Weight 189 lbs 12/15/2024 BMI 26.36 kg/m2 12/15/2024 Encounters Encounter Location Date Provider Diagnosis Pop Cleveland MD [address] [place], [place] [phone] 12/15/[address] elevation myocardial infarction involving left anterior descending (LAD) coronary artery I21.02 and History of cardiac arrest Z86.74 Assessments Encounter Date Diagnosis (ICD Code) Assessment Notes Treatment Notes Treatment Clinical Notes Section Notes 12/15/2024 ST elevation myocardial infarction involving left anterior descending (LAD) coronary artery (ICD-10 - I21.02) need results from dr galvez 12/15/2024 History of cardiac arrest (ICD-10 - Z86.74) is followed by [facility] and doing cardiac rehab Plan Of Treatment Treatment Notes Assessment Notes ST elevation myocardial infa rction involving left anterior descending (LAD) coronary artery need results from dr galvez History of cardiac arrest is followed by [facility] and doing cardiac rehab Next Appt Details Follow Up: 6 Weeks, Reason: Provider Name:Pop You ier, 10/16/2025 10:30:00 AM, [address], [address], [place], [place], [phone], Progress Notes * Dario ALBARRAN CDOB:1960 (64 yo M)Acc No.[id number]:12/15/2024 Progress Notes Patient: Dario SHAFFER Provider: Sergio Cleveland MD :1960 A ge:64 Y S ex:Male Date:12/15/2024 Address:[address] [place] [address] , [facility] [id number] Subjective: * Chief Complaints: * 2 week * HPI: S ymptom(s): patient is a 64 yo male here for 2 week follow up. has seen launch operator. bp is running low. gets dizzy if standing up. has been going to cardiac rehab and feels great going there./ no shortness of breath with exertion. gets out of breath rarely. clmbs stairs without difficulty. * ROS: G eneral/Constitutional: Denies C hills. D enies F atigue. D enies F ever. D enies H eadache. E NT: Patient denies d ecreased sense of smell, any loss of taste, sore throat. D enies S ore throat. R espiratory: Denies C ough. D enies S hortness of breath at rest. D enies S hortness of breath with exertion. G astrointestinal: Denies D iarrhea. D enies N ausea. M usculoskeletal: Patient denies m uscle aches. P eripheral Vascular: Patient denies r ed and blue toes. * Medical History: * Surgical History: * Hospitalization/Major Diagno stic Procedure: * Medications: T akingMetoprolol Succinate ER 100 MG Tablet Extended Release 24 Hour 1 tablet Orally Once a day Spironolactone 25 MG Tablet 1 tablet Orally Entresto 24-26 MG Tablet 1 tablet Orally Twice a day Omeprazole 40 MG Capsule Delayed Release 1 capsule 1/2 to 1 hour before morning meal Orally Once a day Dapagliflozin Propanediol 10 MG Tablet 1 tablet Orally Once a day Clopidogrel Bisulfate 75 MG Tablet 1 tablet Orally Once a day Apixaban 5 MG Tablet as directed Orally Taking Metoprolol Succinate ER 100 MG Tablet Extended Release 24 Hour 1 tablet Orally Once a day Taking Spironolactone 25 MG Tablet 1 tablet Orally Taking Entresto 24-26 MG Tablet 1 tablet Orally Twice a day Taking Omeprazole 40 MG Capsule Delayed Release 1 capsule 1/2 to 1 hour before morning meal Orally Once a day Taking Dapagliflozin Propanediol [...] puffs as needed Inhalation every 4 hrs Medication List reviewed and reconciled with the patientNot-Taking/PRN LORazepam 1 MG Tablet 1 tablet at bedtime as needed Orally Once a day Not-Taking/PRN HYDROcodone-Acetaminophen 5- 325 MG Tablet 1 tablet as needed Orally every 6 hrs Not-Taking/PRN Cyclobenzaprine HCl 5 MG Tablet 1 tablet as needed Orally Three times a day Not-Taking/PRN Ventolin HFA * 108 (90 Base) MCG/ACT Aerosol Solution 2 puffs as needed Inhalation every 4 hrs Medication List reviewed and reconciled with the patient * Allergies: N .K.D.A.yes[Allergies Verified] Objective: * Vitals: H t: 71, Wt: 189, BMI:26.36, BP:82/44, Wt-k.73. * Examination: G eneral Examination: GENERAL APPEARANCE: a lert, well hydrated, in no distress.? HEAD: n ormocephalic. SKIN: g ood turgor. HEART: n o murmurs, rubs, gallops, regular rate and rhythm.? LUNGS: n o wheezes, rales, rhonchi, good air movement, clear to auscultation bilaterally. Assessment: * Assessment: 1. S T elevation myocardial infarction involving left anterior descending (LAD) coronary artery - I21.02 (Primary) 2 . H istory of cardiac arrest - Z86.74 Plan: * Treatment: 2. H istory of cardiac arrest Notes: is followed by [facility] and doing cardiac rehab * Procedure Codes: * Follow Up: 6 Weeks * * Sign off status: Completed true * Provider: Sergio Cleveland MD Date: 0 12/15/2024 Generated for Janna martinez/Bharti/Edvinitting on: 1 11/27/2024 03:25 PM EST History and Physical Notes * HPI (History of Present Illness) Category Sub-Category Detail Notes Category Not es Symptom(s) patient is a 64 yo male here for 2 week follow up. has seen launch operator. bp is running low. gets dizzy if standing up. has been going to cardiac rehab and feels great going there./ no shortness of breath with exertion. gets out of breath rarely. clmbs stairs without difficulty. Examination Category Sub-Category Detail Notes Category Not es General Examination GENERAL APPEARANCE: alert, w ell hydrated, in no distress HEAD: normocephalic HEART: no murmurs, rubs, ga llops, regular rate and rhythm LUNGS: no wheezes, rales, r honchi, good air movement, clear to auscultation bilaterally SKIN: good turgor
--- OUTSIDE RECORDS SUMMARY | 2025-01-31 05:00 | XMS_ITS ---
Author Organization Pop Cleveland MD Address [address] [place], [place] [id number] Care Team Providers Care Banker Mason Name Role Phone Pop Cleveland Primary Care Provider [phone] Allergies No Known Allergies REASON FOR VISIT 6 weeks Medications Medication SIG (Take, Route, Frequency, Duration) Notes Start Date End Date Status Apixaban 5 MG as directed Orally Active LORazepam 1 MG 1 tablet at [...] 4 hrs for 30 day(s) 06/28/2018 Not-Taking Spironolactone 25 MG 1 tablet Orally Active Entresto 24-26 MG 1 tablet Orally Twic e a day Active Omeprazole 40 MG 1 capsule 1/2 to 1 hour before morning meal Orally Once a day Active Dapagliflozin Propanediol 10 MG 1 tablet Orally Once a day Active Clopidogrel Bisulfate 75 MG 1 tablet Ora lly Once a day Active Atorvastatin Calcium 20 MG 1 tablet Oral ly Once a day Active Metoprolol Succinate ER 100 MG 1 tablet Orally Once a day Active Vital Signs Blood pressure systolic 82 mm Hg 02/01/20 25 Blood pressure diastolic 58 mm Hg 025 Height 71 in 01/31/2025 Weight 188 lbs 01/31/2025 BMI 26.22 kg/m2 01/31/2025 Encounters Encounter Location Date Provider Diagnosis Pop Cleveland MD [address] [place], [place] [id number] 01/31/[address] elevation myocardial infarction involving left anterior descending (LAD) coronary artery I21.02 and History of cardiac arrest Z86.74 Assessments Encounter Date Diagnosis (ICD Code) Assessment Notes Treatment Notes Treatment Clinical Notes Section Notes 01/31/2025 ST elevation myocardial infarction involving left anterior descending (LAD) coronary artery (ICD-10 - I21.02) has recently started on statin and will need to increase as time goes/ had been on 80 and was on hold due to liver tests 01/31/2025 History of cardiac arrest (ICD-10 - Z86.74) doing great waiting for echo to determine need for defibi=rillato r Plan Of Treatment Treatment Notes Assessment Notes ST elevation myocardial infa rction involving left anterior descending (LAD) coronary artery has recently started on statin and will need to increase as time goes/ had been on 80 and was on hold due to liver tests History of cardiac arrest doing great wa iting for echo to determine need for defibi=rillator Pending Test Test Name Order Date Complete Blood Count Auto Diff 5 Comprehensive [place]. Panel Fast 5 Lipid Panel 01/31/2025 Next Appt Details Follow Up: 2 Months, Reason: Provider Name:Pop You ietriny, 10/16/2025 10:30:00 AM, [address], [address], [place], [place], [phone], Progress Notes * Dario ALBARRAN CDOB:1960 (64 yo M)Acc No.[id number]:01/31/2025 Progress Notes Patient: Dario SHAFFER Provider: Sergio Cleveland MD :1960 A ge:64 Y S ex:Male Date:01/31/2025 Address: [address], [id number] Subjective: * Chief Complaints: * 6 weeks * HPI: S ymptom(s): patint is a 64 yo male here for 6 week follow up visit/ still wearing a temporary defibrillator. awaiting his echo. / is going to rehab 3 times per week and going to the [facility] too. chest is doing better. not short of breath. * ROS: G eneral/Constitutional: Denies C hills. D enies F atigue. D enies F ever. D enies H eadache. E NT: Denies S ore throat. R espiratory: Denies C ough. D enies S hortness of breath at rest. D enies S hortness of breath with exertion. C ardiovascular: Denies C hest pain at rest. D enies C hest pain with exertion. D encarrie D izziness. D enies P alpitations. D enies S hortness of breath. G astrointestinal: Skyla D iarrhea. Lisa enies N ausea. * Medical History: * Surgical History: * Hospitalization/Major Diagno stic Procedure: * Medications: T akingAtorvastatin Calcium 20 MG Tablet 1 tablet Orally Once a day Metoprolol Succinate ER 100 MG Tablet Extended [...] 5 MG Tablet as directed Orally Taking Atorvastatin Calcium 20 MG Tablet 1 tablet Orally Once a day Taking Metoprolol Succinate ER 100 MG Tablet [...] Objective: * Vitals: H t: 71, Wt: 188, BMI:26.22, BP:82/58, Wt-k.28. * Examination: G eneral Examination: GENERAL APPEARANCE: a lert, well hydrated, in no distress.? HEAD: n ormocephalic. SKIN: g ood turgor. HEART: r egular rate and rhythm, no murmurs, rubs, gallops.? LUNGS: g ood air movement, clear to auscultation bilaterally, clear anteriorly and posteriorly. Assessment: * Assessment: 1. S T elevation myocardial infarction involving left anterior descending (LAD) coronary artery - I21.02 (Primary) 2 . H istory of cardiac arrest - Z86.74 Plan: * Treatment: 2. H istory of cardiac arrest Notes: doing great waiting for echo to determine need for defibi=rillator * Procedure Codes: * Follow Up: 2 Months * * Sign off status: Completed true * Provider: Sergio Cleveland MD Date: 0 01/31/2025 Generated for Janna martinez/Bharti/Edvinitting on: 1 11/27/2024 03:25 PM EST History and Physical Notes * HPI (History of Present Illness) Category Sub-Category Detail Notes Category Not es Symptom(s) maritza is a 64 yo male here for 6 week follow up visit/ still wearing a temporary defibrillator. awaiting his echo. / is going to rehab 3 times per week and going to the [facility] too. chest is doing better. not short of breath. Examination Category Sub-Category Detail Notes Category Not es General Examination GENERAL APPEARANCE: alert, w ell hydrated, in no distress HEAD: normocephalic HEART: regular rate and rhy thm, no murmurs, rubs, gallops LUNGS: good air movement, c lear to auscultation bilaterally, clear anteriorly and posteriorly SKIN: good turgor
--- OUTSIDE RECORDS SUMMARY | 2025-02-02 03:00 | XMS_ITS ---
Author Organization Pop Cleveland MD Address [address] [place], [place] [id number] Care Team Providers Care Sand Slinger Name Role Phone Pop Cleveland Primary Care Provider Results Component Value Reference Range Notes Complete Blood Count Auto Di ff Reviewed date:02/02/2025 12:49:12 PM Interpretation: Performing Lab:[facility], [address] [place] [phone] Notes/Report: White Blood Count 5.2 4.8-10.8 X10*3/uL Red Blood Count 4.44 4.60-5.80 X10*6/uL Hemoglobin 13.7 14.0-18.0 g/dl Hematocrit 41.7 42.0-52.0 % Mean Corpuscular Volume 93.9 80.0-98.0 fL Mean Corpuscular Hemoglobin 30.9 27.0-33.0 pg Mean Corpuscular HGB Conc 32.9 31.0-36.0 g/dl Red Cell Distribution Width 13.2 11.0-16.0 % Platelet Count 288 160-400 X10*3/uL Mean Platelet Volume 11.1 9.4-12.4 fL Neutrophils Percent Auto 47.0 45-73 % Imm Gran Pct Auto 0.2 0.0-0.4 % Lymphocytes Percent Auto 40.9 20-40 % Monocytes Percent Auto 8.6 2-11 % Eosinophils Percent Auto 2.7 0-4 % Basophils Percent Auto 0.6 0-2 % NRBC Pct Auto 0.0 0.0-0.2 /100WBC Neutrophils Absolute Auto 2.5 2.0-8.3 x10*3/u L Imm Gran Abs Auto 0.01 0.00-0.03 X10*3/uL Lymphocytes Absolute Auto 2.1 1.2-4.9 X10*3/u L Monocytes Absolute Auto 0.5 0.1-1.2 X10*3/uL Eosinophils Absolute Auto 0.1 0.0-0.4 X10*3/u L Basophils Absolute Auto 0.0 0.0-0.2 X10*3/uL NRBC Abs Auto 0.000 0.0-0.012 X10*3/uL Comprehensive [place]. Panel Fa Reviewed date:02/02/2025 04:48:58 PM Interpretation: Performing Lab:[address] [id number] Notes/Report: Sodium 141 135-145 mmol/L Potassium 4.0 3.3-5.1 mmol/L Chloride 107 96-108 mmol/L Carbon Dioxide 28 22-29 mmol/L Anion Gap 10 12-20 Blood Urea Nitrogen 18 9-16 mg/dL Creatinine 0.95 0.5-1.4 mg/dL Estimated Glomerular Filt Rate > 60 Chronic Kidney Disease: Estimated GFR < 60 mL/min/1.73m2 Severe Kidney Disease: Estimated GFR < 15 mL/min/1.73m2 Glucose Fasting 100 60-99 mg/dL A fasting glucose from 100-125 mg/dl is considered impaired (pre-diabetes). Calcium 9.6 8.4-10.2 mg/dL Bilirubin Total 0.5 0.0-1.0 mg/dL Aspartate Amino Transferase 37 5-37 U/L Alanine Aminotransferase 34 0-40 U/L Total Protein 6.8 6.5-8.0 g/dL Albumin Level 4.2 3.5-5.0 g/dL Alkaline Phosphatase 70 39-117 U/L Liver Panel Reviewed date:02/02/2025 12:46:25 PM Interpretation: Performing Lab:[address] [phone] Notes/Report: Bilirubin Direct 0.3 0.0-0.5 mg/dL Lipid Panel Reviewed date:02/02/2025 12:46:37 PM Interpretation: Performing Lab:[facility], [address] [place] [phone] Notes/Report: Triglycerides 133 <150 mg/dL Desirable Triglyceride: less than 150 mg/dL Borderline High Triglyceride 150-199 mg/dL High Triglyceride: 200-499 mg/dL Very High Triglyceride: greater than or equal to 5OO mg/dL Cholesterol 116 <200 mg/dL Desirable Cholesterol: less than 200 mg/dL Borderline High Cholesterol: 200-239 mg/dL High Cholesterol: greater than 239 mg/dL LDL Cholesterol Calculated 58 <100 mg/dL Desirable LDL: less than 100 mg/dL Near Optimal/Above Optimal LDL: 110-129 mg/dL Borderline High LDL: 130-159 mg/dL High LDL: 160-189 mg/dL Very High LDL: greater than or equal to 190 mg/dL HDL Cholesterol 32 >40 mg/dL Desirable HDL: greater than 40 mg/dL Note: This HDL assay may give artificially low results in patients with liver disease. REASON FOR VISIT CBC with diff, Comp [place], fasting lipids Encounters Encounter Location Date Provider Diagnosis Pop Cleveland MD [address] [place] [address] [place] [phone] 02/02/2025 Pop Cleveland Elevated LFTs R79.89 Assessments Encounter Date Diagnosis (ICD Code) Assessment Notes Treatment Notes Treatment Clinical Notes Section Notes 02/02/2025 Elevated LFTs (ICD-10 - R79.89) Plan Of Treatment Next Appt Details Provider Name:Pop You ier, 10/16/2025 10:30:00 AM, [address] [place] [address], [address], [phone], Progress Notes * Dario ALBARRAN CDOB:1960 (65 yo M)Acc No.[id number]:02/02/2025 Progress Note Patient: Dario SHAFFER Provider: Sergio Cleveland MD :1960 A ge:64 Y S ex:Male Date:02/02/2025 Address: [address], [id number] Subjective: * Chief Complaints: * 1 . CBC with diff, Comp [place], fasting lipids. * Medical History: Objective: * Vitals: Assessment: * Assessment: 1. E levated LFTs - R79.89 (Primary) Plan: * Treatment: * Procedure Codes: 3 6415 VENIPUNCT, ROUTINE* * * The named appointment provid er may or may not be the originator of this progress note, and it is not deemed complete until electronically signed by the appointment provider. Sign off status: Pending * Provider: Sergio Cleveland MD Date: 0 02/02/2025 Generated for Janna martinez/Bharti/Edvinitting on: 1 11/27/2024 03:25 PM EST
--- OUTSIDE RECORDS SUMMARY | 2025-04-03 06:00 | XMS_ITS ---
Author Organization Pop Cleveland MD Address [address] [place], [place] [id number] Care Team Providers Care Prototype Technician Name Role Phone Pop Cleveland Primary Care Provider Allergies No Known Allergies REASON FOR VISIT 2 month Medications Medication SIG (Take, Route, Frequency, Duration) Notes Start Date End Date Status Spironolactone 25 MG 1 tablet Orally Active Metoprolol Succinate ER 100 MG 1 tablet Orally Once a day Active Atorvastatin Calcium 20 MG 1 tablet Oral ly Once a day Active Pantoprazole Sodium 40 MG 1 tablet 1/2 t o 1 hour before morning meal Orally Once a day Active Entresto 24-26 MG 1 tablet Orally Twic e a day Active Ventolin HFA * 108 (90 Base) [...] a day for 4 days 09/20/2021 Not-Taking Apixaban 5 MG as directed Orally Active Clopidogrel Bisulfate 75 MG 1 tablet Ora lly Once a day Active Dapagliflozin Propanediol 10 MG 1 tablet Orally Once a day Active Omeprazole 40 MG 1 capsule 1/2 to 1 hour before morning meal Orally Once a day Active Problems Problem Type SNOMED Code ICD Code Onset Dates Problem Status W/U Status Risk Notes Problem Old myocardial infarction (2505757) History of OR (myocardial infarction) (I25.2) Active confirmed Vital Signs Blood pressure systolic 72 mm Hg 04/03/20 25 Blood pressure diastolic 48 mm Hg 025 Height 71 in 04/03/2025 Weight 183 lbs 04/03/2025 BMI 25.52 kg/m2 04/03/2025 weight is down 5 pound ssila e 01-31-25 Encounters Encounter Location Date Provider Diagnosis Pop Cleveland MD [address] [place] [address] Drive [address] [place] [phone] 04/03/2025 Pop Cleveland History of cardiac arrest Z86.74 and History of OR (myocardial infarction) I25.2 Assessments Encounter Date Diagnosis (ICD Code) Assessment Notes Treatment Notes Treatment Clinical Notes Section Notes 04/03/2025 History of cardiac arrest (ICD-10 - Z86.74) doing well 04/03/2025 History of OR (myocardial infarction) (ICD-10 - I25.2) is doing great. getting a stress test next week to see if his other lesions are significant Plan Of Treatment Treatment Notes Assessment Notes History of cardiac arrest doing well History of OR (myocardial infarction) is doing great. getting a stress test next week to see if his other lesions are significant Next Appt Details Follow Up: 2 Months, Reason: Provider Name:Pop You ier, 10/16/2025 10:30:00 AM, [address] [place] [address], Suite [facility], [place], [place], [phone], Progress Notes * ISIDOROJAIMEE Dario CDOB:1960 (64 yo M)Acc No.[id number]:04/03/2025 Progress Notes Patient: Dario SHAFFER Provider: Sergio Cleveland MD :1960 A ge:64 Y S ex:Male Date:04/03/2025 Address: [address], [id number] Subjective: * Chief Complaints: * 2 month * HPI: S ymptom(s): patient is a 64 yo male here for 2 month follow up visit/ has stress test coming up in one week. * ROS: G eneral/Constitutional: Denies Rod fisher. D enies F atigue. D enies F ever. D enies H eadache. E NT: Denies S ore throat. R espiratory: Denies C ough. D enies S hortness of breath at rest. D enies S hortness of breath with exertion. C ardiovascular: Denies C hest pain at rest. D enies C hest pain with exertion. D enies D izziness. D enies P alpitations. D enies S hortness of breath. G astrointestinal: Denies D iarrhea. D enies N ausea. * Medical History: * Surgical History: * Hospitalization/Major Diagno stic Procedure: * Medications: T akingPantoprazole Sodium 40 MG Tablet Delayed Release 1 tablet 1/2 to 1 hour before morning meal Orally Once a day Atorvastatin Calcium 20 MG Tablet 1 tablet [...] 5 MG Tablet as directed Orally Taking Pantoprazole Sodium 40 MG Tablet Delayed Release 1 tablet 1/2 to 1 hour before morning meal Orally Once a day Taking Atorvastatin Calcium 20 MG Tablet 1 [...] Objective: * Vitals: H t: 71, Wt: 183, BMI:25.52, BP:72/48, Repeat BP:90/60, Wt-k.01. weight is down 5 pound ssince 01-31-25. * Examination: G eneral Examination: GENERAL APPEARANCE: a lert, well hydrated, in no distress.? HEAD: n ormocephalic. SKIN: g ood turgor. HEART: n o murmurs, rubs, gallops, regular rate and rhythm.? LUNGS: n o wheezes, rales, rhonchi, good air movement, clear to auscultation bilaterally. Assessment: * Assessment: 1. H istory of OR (myocardial infarction) - I25.2 (Primary) 2 . H istory of cardiac arrest - Z86.74 Plan: * Treatment: 2. H istory of cardiac arrest Notes: doing well * Procedure Codes: * Follow Up: 2 Months * * Sign off status: Completed true * Provider: Sergio Cleveland MD Date: 0 04/03/2025 Generated for Janna martinez/Bharti/Cadence on: 1 11/27/2024 03:25 PM EST History and Physical Notes * HPI (History of Present Illness) Category Sub-Category Detail Notes Category Not es Symptom(s) patient is a 64 yo male here for 2 month follow up visit/ has stress test coming up in one week. Examination Category Sub-Category Detail Notes Category Not es General Examination GENERAL APPEARANCE: alert, w ell hydrated, in no distress HEAD: normocephalic HEART: no murmurs, rubs, ga llops, regular rate and rhythm LUNGS: no wheezes, rales, r honchi, good air movement, clear to auscultation bilaterally SKIN: good turgor
--- OUTSIDE RECORDS SUMMARY | 2025-04-29 11:43 | XMS_ITS ---
Author Organization Pop Cleveland MD Address [address] [facility] [address] [place] [phone] Care Team Providers Care Supervisor Lending Activities Name Role Phone Pop Cleveland Primary Care Provider [phone] Medications Medication SIG (Take, Route, Frequency, Duration) Notes Start Date End Date Status Apixaban 2.5 MG as directed Orally t wice a day for 8 days 04/29/2025 Active Paxlovid (300/100) 20 x 150 MG & 10 x 100MG 3 tablets Orally Twice a day for 5 day(s) 04/29/2025 Active Encounters Encounter Location Date Provider Diagnosis Pop Cleveland MD [address] [place] [address] [place] [phone] 04/29/2025 Pop Cleveland Plan Of Treatment Medication Medication Name Sig Start Date Stop Date Notes Apixaban 2.5 MG as directed Orally t wice a day for 8 days 04/29/2025 Paxlovid (300/100) 20 x 150 MG & 10 x 100MG 3 tablets Orally Twice a day for 5 day(s) 04/29/2025 Next Appt Details Provider Name:Pop You ier, 10/16/2025 10:30:00 AM, [address] [place] [address], [place] [address], [place], [place], [phone], Progress Notes * Dario ALBARRAN CDOB:1960 (64 yo M)Acc No.[id number]:04/29/2025 Patient: Thai Dario NAVARRO :1960 A ge:64 Y S ex:Male Address: [address], [place] [address] * Refills Start Apixaban Tablet, 2.5 MG, Orally, 16, as directed, twice a day, 8 days Start Paxlovid (300/100) Tablet Therapy Pack, 20 x 150 MG & 10 x 100MG, Orally, 30, 3 tablets, Twice a day, 5 day(s) * true * Date: Generated for Janna martinez/Bharti/Edvinitting on: 11/27/2024 03:26 PM EST
--- OUTSIDE RECORDS SUMMARY | 2025-06-05 08:45 | XMS_ITS ---
Author Organization Pop Cleveland MD Address [address] [place], [place] [phone] Care Team Providers Care Nipple Threader Name Role Phone Pop Cleveland Primary Care Provider Allergies No Known Allergies Results Component Value Reference Range Notes Liver Panel Reviewed date:06/06/2025 02:54:42 PM Interpretation: Performing Lab:[facility], [address] [place] [phone] Notes/Report: Bilirubin Total 0.9 0.0-1.0 mg/dL Bilirubin Direct 0.4 0.0-0.5 mg/dL Aspartate Amino Transferase 37 5-37 U/L Alanine Aminotransferase 32 0-40 U/L Total Protein 6.8 6.5-8.0 g/dL Albumin Level 4.5 3.5-5.0 g/dL Alkaline Phosphatase 66 39-117 U/L REASON FOR VISIT 2 month Medications Medication SIG (Take, Route, Frequency, Duration) Notes Start Date End Date Status Apixaban 2.5 MG as directed Orally twice a day for 8 days 04/29/2025 Not-Taking Clopidogrel Bisulfate 75 MG 1 tablet Ora lly Once a day Active Apixaban 5 MG as directed Orally Active Dapagliflozin Propanediol 10 MG 1 tablet Orally Once a day Active Metoprolol Succinate ER 100 MG 1 tablet Orally Once a day Active Atorvastatin Calcium 20 MG 1 tablet Oral ly Once a day Active Spironolactone 25 MG 1 tablet Orally Active Entresto 24-26 MG 1 tablet Orally Twic e a day Active Pantoprazole Sodium 40 MG 1 tablet 1/2 t o 1 hour before morning meal Orally Once a day Active HYDROcodone-Acetaminophen 5-325 MG 1 tablet as needed Orally every 6 hrs for 5 days 09/20/2021 Not-Taking Farxiga 10 MG 1 tablet Orally Once a day Active Ventolin HFA * 108 (90 Base) MCG/ACT 2 puffs as needed Inhalation every 4 hrs for 30 day(s) 06/28/2018 Not-Taking Cyclobenzaprine HCl 5 MG 1 tablet as nee ded Orally Three times a day for 10 days 04/12/2019 Not-Taking LORazepam 1 MG 1 tablet at bedtime as needed Orally Once a day for 4 days 09/20/2021 Not-Taking Vital Signs Blood pressure systolic 72 mm Hg 06/05/20 Blood pressure diastolic 48 mm Hg 025 Height 71 in 06/05/2025 Weight 181 lbs 06/05/2025 BMI 25.24 kg/m2 06/05/2025 weight is down 2 pounds [facility] 04-03-25 Encounters Encounter Location Date Provider Diagnosis Pop Cleveland MD [address] [place] [address] [place] [phone] 06/05/2025 Pop Cleveland Elevated LFTs R79.89 and History of NE (myocardial infarction) I25.2 Assessments Encounter Date Diagnosis (ICD Code) Assessment Notes Treatment Notes Treatment Clinical Notes Section Notes 06/05/2025 Elevated LFTs (ICD-10 - R79.89) will check today to see if he can go on higher statin 06/05/2025 History of NE (myocardial infarction) (ICD-10 - I25.2) is doing well and not having any problems/ had a myocardial perfusion scan Plan Of Treatment Treatment Notes Assessment Notes Elevated LFTs will check today to see if he can go on higher statin History of NE (myocardial infarction) is doing well and not having any problems/ had a myocardial perfusion scan Next Appt Details Follow Up: 4 Months, Reason: Provider Name:Pop house, 10/16/2025 10:30:00 AM, [address] [place] [address], [address], [place], [place], [phone], Progress Notes * Dario ALBARRAN CDOB:1960 (64 yo M)Acc No.[id number]:06/05/2025 Progress Notes Patient: Thai MARINOZenobiaDario Provider: Sergio Cleveland MD :1960 A ge:64 Y S ex:Male Date:06/05/2025 Address: [address], [place], [id number] Subjective: * Chief Complaints: * 2 month * HPI: S ymptom(s): patient is a 64 yo male here for 2 month follow up visit/ walks when he golfs is walkin when he doesn't golf. had 2 week holter with had no significant ectopy. echo at 47%. * ROS: G eneral/Constitutional: Denies C [place]. [...] Hospitalization/Major Diagno stic Procedure: * Medications: T akingFarxiga 10 MG Tablet 1 tablet Orally Once a day Pantoprazole Sodium 40 MG Tablet Delayed Release [...] Tablet 1 tablet Orally Twice a day Dapagliflozin Propanediol 10 MG Tablet 1 tablet Orally Once a day Clopidogrel Bisulfate 75 MG Tablet 1 tablet Orally Once a day Apixaban 5 MG Tablet as directed Orally Taking Farxiga 10 MG Tablet 1 tablet Orally Once a day Taking Pantoprazole Sodium 40 MG Tablet Delayed [...] 1 tablet Orally Twice a day Taking Dapagliflozin Propanediol 10 MG Tablet 1 tablet Orally Once a day Taking Clopidogrel Bisulfate 75 MG Tablet 1 tablet Orally Once a day Taking Apixaban 5 MG Tablet as directed Orally Not-Taking/PRNApixaban 2.5 MG Tablet as directed Orally twice a day LORazepam 1 MG Tablet 1 tablet at bedtime as needed Orally Once a day HYDROcodone-Acetaminophen 5-325 MG Tablet 1 tablet as needed Orally every 6 hrs Cyclobenzaprine HCl 5 MG Tablet 1 tablet as needed Orally Three times a day Ventolin HFA * 108 (90 Base) MCG/ACT Aerosol Solution 2 puffs as needed Inhalation every 4 hrs Not-Taking/PRN Apixaban 2.5 MG Tablet as directed Orally twice a day Not-Taking/PRN LORazepam 1 MG Tablet 1 tablet at bedtime as needed Orally Once a day Not-Taking/PRN HYDROcodone-Acetaminophen 5-325 MG Tablet 1 tablet as needed Orally every 6 hrs Not-Taking/PRN Cyclobenzaprine HCl 5 MG Tablet 1 tablet as needed Orally Three times a day Not-Taking/PRN Ventolin HFA * 108 (90 Base) MCG/ACT Aerosol Solution 2 puffs as needed Inhalation every 4 hrs DiscontinuedOmeprazole 40 MG Capsule Delayed Release 1 capsule 1/2 to 1 hour before morning meal Orally Once a day Paxlovid (300/100) 20 x 150 MG & 10 x 100MG Tablet Therapy Pack 3 tablets Orally Twice a day Medication List reviewed and reconciled with the patientDiscontinued Omeprazole 40 MG Capsule Delayed Release 1 capsule 1/2 to 1 hour before morning meal Orally Once a day Discontinued Paxlovid (300/100) 20 x 150 MG & 10 x 100MG Tablet Therapy Pack 3 tablets Orally Twice a day Medication List reviewed and reconciled with the patient * Allergies: N .K.D.A.yes[Allergies Verified] Objective: * Vitals: H t: 71, Wt: 181, BMI:25.24, BP:72/48, Wt-k.1. weight is down 2 pounds since 04-03-25. * Examination: G eneral Examination: GENERAL APPEARANCE: a lert, well hydrated, in no distress.? HEAD: n ormocephalic. SKIN: g ood turgor. HEART: r egular rate and rhythm, no murmurs, rubs, gallops.? LUNGS: n o wheezes, rales, rhonchi, good air movement, clear to auscultation bilaterally. Assessment: * Assessment: 1. E levated LFTs - R79.89 (Primary) 2 . H istory of NE (myocardial infarction) - I25.2 Plan: * Treatment: 2. H istory of NE (myocardial infarction) Notes: is doing well and not having any problems/ had a myocardial perfusion scan * Procedure Codes: 3 6415 VENIPUNCT, ROUTINE* * Follow Up: 4 Months * * Sign off status: Completed true * Provider: Sergio Cleveland MD Date: 0 06/05/2025 Generated for Janna martinez/Bharti/Marcosmitting on: 1 11/27/2024 03:24 PM EST History and Physical Notes * HPI (History of Present Illness) Category Sub-Category Detail Notes Category Not es Symptom(s) patient is a 64 yo male here for 2 month follow up visit/ walks when he golfs is walkin when he doesn't golf. had 2 week holter with had no significant ectopy. echo at 47% Examination Category Sub-Category Detail Notes Category Not es General Examination GENERAL APPEARANCE: alert, w ell hydrated, in no distress HEAD: normocephalic HEART: regular rate and rhy thm, no murmurs, rubs, gallops LUNGS: no wheezes, rales, r honchi, good air movement, clear to auscultation bilaterally SKIN: good turgor
--- OUTSIDE RECORDS SUMMARY | 2025-09-26 03:30 | XMS_ITS ---
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 Panel Fa st (Not yet reviewed by provider) Interpretation: Performing Lab:[facility], [address] [place] [phone] Notes/Report: Sodium 141 135-145 mmol/L Potassium 3.9 3.3-5.1 mmol/L Chloride 106 96-108 mmol/L Carbon Dioxide 25 22-29 mmol/L Anion Gap 14 12-20 Blood Urea Nitrogen 26 9-16 mg/dL Creatinine 1.15 0.5-1.4 mg/dL Estimated Glomerular Filt Rate > 60 Chronic Kidney Disease: Estimated GFR < 60 mL/min/1.73m2 Severe Kidney Disease: Estimated GFR < 15 mL/min/1.73m2 Glucose Fasting 80 60-99 mg/dL Calcium 9.2 8.4-10.2 mg/dL Bilirubin Total 0.5 0.0-1.0 mg/dL Aspartate Amino Transferase 39 5-37 U/L Alanine Aminotransferase 44 0-40 U/L Total Protein 7.0 6.5-8.0 g/dL Albumin Level 4.5 3.5-5.0 g/dL Alkaline Phosphatase 77 39-117 U/L Lipid Panel with Reflex (Not yet reviewed by provider) Interpretation: Performing Lab:[facility], [address] [place] [phone] Notes/Report: Triglycerides 108 <150 mg/dL Desirable Triglyceride: less than 150 mg/dL Borderline High Triglyceride 150-199 mg/dL High Triglyceride: 200-499 mg/dL Very High Triglyceride: greater than or equal to 5OO mg/dL Cholesterol 123 <200 mg/dL Desirable Cholesterol: less than 200 mg/dL Borderline High Cholesterol: 200-239 mg/dL High Cholesterol: greater than 239 mg/dL LDL Cholesterol Calculated 70 <100 mg/dL Desirable LDL: less than 100 mg/dL Near Optimal/Above Optimal LDL: 110-129 mg/dL Borderline High LDL: 130-159 mg/dL High LDL: 160-189 mg/dL Very High LDL: greater than or equal to 190 mg/dL HDL Cholesterol 32 >40 mg/dL Desirable HDL: greater than 40 mg/dL Note: This HDL assay may give artificially low results in patients with liver disease. PSA,Total (Free>4and<10) (No t yet reviewed by provider) Interpretation: Performing Lab:[address] [phone] Notes/Report: PSA,Total (Free>4and<10) 1.12 0.00-4.00 ng/mL A Free PSA was not [...] Doan Alinity i Chemiluminescent Microparticle Immunoassay (CMIA) Complete Blood Count Auto Di ff Reviewed date:09/26/2025 12:35:30 PM Interpretation: Performing Lab:[facility], [address] [place] [phone] Notes/Report: White Blood Count 6.6 4.8-10.8 X10*3/uL Red Blood Count 4.55 4.60-5.80 X10*6/uL Hemoglobin 14.7 14.0-18.0 g/dl Hematocrit 44.6 42.0-52.0 % Mean Corpuscular Volume 98.0 80.0-98.0 fL Mean Corpuscular Hemoglobin 32.3 27.0-33.0 pg Mean Corpuscular HGB Conc 33.0 31.0-36.0 g/dl Red Cell Distribution Width 12.6 11.0-16.0 % Platelet Count 273 160-400 X10*3/uL Mean Platelet Volume 10.4 9.4-12.4 fL Neutrophils Percent Auto 45.8 45-73 % Imm Gran Pct Auto 0.3 0.0-0.4 % Lymphocytes Percent Auto 40.4 20-40 % Monocytes Percent Auto 10.9 2-11 % Eosinophils Percent Auto 2.0 0-4 % Basophils Percent Auto 0.6 0-2 % NRBC Pct Auto 0.0 0.0-0.2 /100WBC Neutrophils Absolute Auto 3.0 2.0-8.3 x10*3/u L Imm Gran Abs Auto 0.02 0.00-0.03 X10*3/uL Lymphocytes Absolute Auto 2.7 1.2-4.9 X10*3/u L Monocytes Absolute Auto 0.7 0.1-1.2 X10*3/uL Eosinophils Absolute Auto 0.1 0.0-0.4 X10*3/u L Basophils Absolute Auto 0.0 0.0-0.2 X10*3/uL NRBC Abs Auto 0.000 0.0-0.012 X10*3/uL Microalbumin, Random Reviewed date:09/26/2025 12:33:51 PM Interpretation: Performing Lab:[address] [phone] Notes/Report: Creatinine Urine 130.60 Microalbumin Urine 7.0 Microalbum/Creatinine Ratio Ur 5.3 <30 ug/mg cr Albumin/Creatinine Ratio Reference Ranges: Normal: < 30 ug/mg creatinine Microalbuminuria: 30 - 300 ug/mg creatinine Clinical Albuminuria: > 300 ug/mg creatinine Hemoglobin A1c Reviewed date:09/26/2025 12:33:43 PM Interpretation: Performing Lab:[address] [phone] Notes/Report: Hemoglobin A1c % 5.5 <6.0 % Hemoglobin A1C Reference Range Adults: 4.8 - 6.0 % Non diabetic: < 6.0 % Goal: < 7.0 % Additional Action Suggested: > 8.0 % Note: Hemoglobin A1c results are invalid for patients with abnormal amounts of HbF. Blood transfusions may impact the HbA1c concentration in the patient sample. Estimated Average Glucose 111 eAG = Estimated average glucose which is %A1C expressed as average glucose, using the formula of the [id number] Average Glucose study (ADAG), Diabetes Care, Vol.31,#8, May. 2007 UA ClnCatch+Micro w/rflx Cul t Reviewed date:09/26/2025 12:34:23 PM Interpretation: Performing Lab:[facility], [address] [place] [phone] Notes/Report: Urine, Clean Catch Color Urine Yellow Appearance Urine Clear PH 5.5 5.0-9.0 Glucose Urine UA >=1000 Negative mg/dL Urine Blood Negative Negative Specific [place] - Urine >= 1.030 1.005-1.025 Urine Protein Negative Neg-Trace mg/dL Urine Ketones Trace Negative mg/dL Nitrite Urine Negative Negative Leukocyte Esterase Urine Negative Negative RBC Urine 0-2 0-2 /HPF WBC Urine 0-5 0-5 /HPF Squamous Epithelial Cell Urine 0-2 0-2 /HPF Bacteria Urine None Seen None Seen Hyaline Casts Urine 0-2 0-2 /LPF REASON FOR VISIT yearly fasting labs Encounters Encounter Location Date Provider Diagnosis Pop Cleveland MD [address] [place] [address] [address] [place], [place] [id number] 09/26/2025 Pop Cleveland High triglycerides E78.1 ; Prediabetes R73.09 ; Lymphocytosis D72.820 ; Elevated cholesterol with high triglycerides E78.2 ; History of CT (myocardial infarction) I25.2 and Annual physical exam Z00.00 Assessments Encounter Date Diagnosis (ICD Code) Assessment Notes Treatment Notes Treatment Clinical Notes Section Notes 09/26/2025 High triglycerides (ICD-10 - E78.1) 09/26/2025 Prediabetes (ICD-10 - R73.09) 09/26/2025 Lymphocytosis (ICD-10 - D72.820) 09/26/2025 Elevated cholesterol with high triglycerides (ICD-10 - E78.2) 09/26/[address] (myocardial infarction) (ICD-10 - I25.2) 09/26/2025 Annual physical exam (ICD-10 - Z00.00) Plan Of Treatment Pending Test Test Name Order Date Comprehensive [place]. Panel Fast Lipid Panel with Reflex 09/26/2025 PSA,Total (Free>4and<10) 09/26/2025 Next Appt Details Provider Name:Pop You ier, 10/16/2025 10:30:00 AM, [address] [facility], [address], [place], [place], [id number], Progress Notes * Dario ALBARRAN CDOB:1960 (65 yo M)Acc No.[id number]:09/26/2025 Progress Note Patient: Dario SHAFFER Provider: Sergio Cleveland MD :1960 A ge:65 Y S ex:Male Date:09/26/2025 Address:[address] [place] [address], [facility] Subjective: * Chief Complaints: * 1 . Yearly fasting labs. * Medical History: Objective: * Vitals: Assessment: * Assessment: 1. H igh triglycerides - E78.1 (Primary) 2 . P rediabetes - R73.09 ? 3 . L ymphocytosis - D72.820 4 . E levated cholesterol with high triglycerides - E78.2 [address] (myocardial infarction) - I25.2 6 . A nnual physical exam - Z00.00 Plan: * Treatment: 2. P rediabetes L AB: Comprehensive [place]. Panel Fast (Collection Date & Time - 09/26/2025 08:30 AM) L AB: Lipid Panel with Reflex (Collection Date & Time - 09/26/2025 08:30 AM) L AB: PSA,Total (Free>4and<10) (Collection Date & Time - 09/26/2025 08:30 AM) L AB: Complete Blood Count Auto Diff (Collection Date & Time - 09/26/2025 08:30 AM) L AB: Microalbumin, Random (Collection Date & Time - 09/26/2025 08:30 AM) L AB: Hemoglobin A1c (Collection Date & Time - 09/26/2025 08:30 AM) L AB: UA ClnCatch+Micro w/rflx Cult (Collection Date & Time - 09/26/2025 08:30 AM) 3. L ymphocytosis L AB: Comprehensive [place]. Panel Fast (Collection Date & Time - 09/26/2025 08:30 AM) L AB: Lipid Panel with Reflex (Collection Date & Time - 09/26/2025 08:30 AM) L AB: PSA,Total (Free>4and<10) (Collection Date & Time - 09/26/2025 08:30 AM) L AB: Complete Blood Count Auto Diff (Collection Date & Time - 09/26/2025 08:30 AM) L AB: Microalbumin, Random (Collection Date & Time - 09/26/2025 08:30 AM) L AB: Hemoglobin A1c (Collection Date & Time - 09/26/2025 08:30 AM) L AB: UA ClnCatch+Micro w/rflx Cult (Collection Date & Time - 09/26/2025 08:30 AM) 4. E levated cholesterol with high triglycerides L AB: Comprehensive [place]. Panel Fast (Collection Date & Time - 09/26/2025 08:30 AM) L AB: Lipid Panel with Reflex (Collection Date & Time - 09/26/2025 08:30 AM) L AB: PSA,Total (Free>4and<10) (Collection Date & Time - 09/26/2025 08:30 AM) L AB: Complete Blood Count Auto Diff (Collection Date & Time - 09/26/2025 08:30 AM) L AB: Microalbumin, Random (Collection Date & Time - 09/26/2025 08:30 AM) L AB: Hemoglobin A1c (Collection Date & Time - 09/26/2025 08:30 AM) L AB: UA ClnCatch+Micro w/rflx Cult (Collection Date & Time - 09/26/2025 08:30 AM) 5. H istory of CT (myocardial infarction) L AB: Comprehensive [place]. Panel Fast (Collection Date & Time - 09/26/2025 08:30 AM) L AB: Lipid Panel with Reflex (Collection Date & Time - 09/26/2025 08:30 AM) L AB: PSA,Total (Free>4and<10) (Collection Date & Time - 09/26/2025 08:30 AM) L AB: Complete Blood Count Auto Diff (Collection Date & Time - 09/26/2025 08:30 AM) L AB: Microalbumin, Random (Collection Date & Time - 09/26/2025 08:30 AM) L AB: Hemoglobin A1c (Collection Date & Time - 09/26/2025 08:30 AM) L AB: UA ClnCatch+Micro w/rflx Cult (Collection Date & Time - 09/26/2025 08:30 AM) 6. A nnual physical exam L AB: Comprehensive [place]. Panel Fast (Collection Date & Time - 09/26/2025 08:30 AM) L AB: Lipid Panel with Reflex (Collection Date & Time - 09/26/2025 08:30 AM) L AB: PSA,Total (Free>4and<10) (Collection Date & Time - 09/26/2025 08:30 AM) L AB: Complete Blood Count Auto Diff (Collection Date & Time - 09/26/2025 08:30 AM) L AB: Microalbumin, Random (Collection Date & Time - 09/26/2025 08:30 AM) L AB: Hemoglobin A1c (Collection Date & Time - 09/26/2025 08:30 AM) L AB: UA ClnCatch+Micro w/rflx Cult (Collection Date & Time - 09/26/2025 08:30 AM) * Procedure Codes: 3 6415 VENIPUNCT, ROUTINE* * * The named appointment provid er may or may not be the originator of this progress note, and it is not deemed complete until electronically signed by the appointment provider. Sign off status: Pending * Provider: Sergio Cleveland MD Date: 11/27/2024 Generated for Janna martinez/Bharti/Edvinitting on: 11/27/2024 03:26 PM EST
[2025-09-26 11:41] LABS: MANUAL DIFF FLAG NO
[2025-09-26 11:49] LABS: Hematocrit 44.6 % (42.0-52.0); Hemoglobin 14.7 g/dl (14.0-18.0); Imm Gran Abs Auto 0.02 X10*3/uL (0.00-0.03); Imm Gran Pct Auto 0.3 % (0.0-0.4); Lymphocytes Absolute Auto 2.7 X10*3/uL (1.2-4.9); Mean Corpuscular HGB Conc 33.0 g/dl (31.0-36.0); Mean Corpuscular Hemoglobin 32.3 pg (27.0-33.0); Mean Corpuscular Volume 98.0 fL (80.0-98.0); NRBC Abs Auto 0.000 X10*3/uL (0.0-0.012); NRBC Pct Auto 0.0 /100WBC (0.0-0.2); Platelet Count 273 X10*3/uL (160-400); Red Blood Count 4.55 X10*6/uL (4.60-5.80); White Blood Count 6.6 X10*3/uL (4.8-10.8)
[2025-09-26 11:51] LABS: Appearance Urine Clear; Glucose Urine UA >=1000 mg/dL (Negative); PH 5.5 (5.0-9.0); Specific Gravity - Urine >= 1.030 (1.005-1.025); UMIC TRIGGER UACC YES
[2025-09-26 12:28] LABS: Microalbum/Creatinine Ratio Ur 5.3 ug/mg cr (<30)
[2025-09-26 12:33] LABS: Alanine Aminotransferase 44 U/L (0-40); Albumin Level 4.5 g/dL (3.5-5.0); Alkaline Phosphatase 77 U/L (39-117); Anion Gap 14 (12-20); Aspartate Amino Transferase 39 U/L (5-37); Blood Urea Nitrogen 26 mg/dL (9-16); Calcium 9.2 mg/dL (8.4-10.2); Carbon Dioxide 25 mmol/L (22-29); Chloride 106 mmol/L (96-108); Cholesterol 123 mg/dL (<200); Estimated Glomerular Filt Rate > 60; HDL Cholesterol 32 mg/dL (>40); Potassium 3.9 mmol/L (3.3-5.1); Sodium 141 mmol/L (135-145); Total Protein 7.0 g/dL (6.5-8.0); Triglycerides 108 mg/dL (<150)
[2025-09-26 12:53] LABS: PSA,Total (Free>4and<10) 1.12 ng/mL (0.00-4.00)
--- OUTSIDE RECORDS SUMMARY | 2025-09-26 15:24 | XMS_ITS | Patient Health Record ---
Author Organization Pop Cleveland MD Address [address] [place], [place] [id number] Care Team Providers Care Barrel Roller Name Role Phone Pop Cel[place]and Primary Care Provider Allergies No Known Allergies Results Component Value Reference Range Notes Complete Blood Count Auto Di ff Reviewed date:09/29/2024 04:43:11 PM Interpretation: Performing Lab:[facility], [address] [place] [phone] Notes/Report: White Blood Count 6.4 4.8-10.8 X10*3/uL [...] NRBC Abs Auto 0.000 0.0-0.012 X10*3/uL Comprehensive [place]. Panel Fa st Reviewed date:09/29/2024 04:42:33 PM Interpretation: Performing Lab:[facility], [address] [place] [phone] Notes/Report: Sodium 142 135-145 mmol/L Potassium 4.3 [...] Panel Reviewed date:09/29/2024 04:43:23 PM Interpretation: Performing Lab:[facility], [address] [place] [phone] Notes/Report: Triglycerides 488 <150 mg/dL Desirable Triglyceride: [...] (Free>4and<10) Reviewed date:09/29/2024 04:42:40 PM Interpretation: Performing Lab:[address] [phone] Notes/Report: PSA,Total (Free>4and<10) 1.32 0.00-4.00 ng/mL A [...] Random Reviewed date:09/29/2024 04:42:47 PM Interpretation: Performing Lab:[facility], [address] [place] [phone] Notes/Report: Creatinine Urine 101.61 Microalbumin Urine 5.0 Microalbum/Creatinine Ratio Ur 4.9 <30 ug/mg cr Albumin/Creatinine Ratio Reference Ranges: Normal: < 30 ug/mg creatinine Microalbuminuria: 30 - 300 ug/mg creatinine Clinical Albuminuria: > 300 ug/mg creatinine Hemoglobin A1c Reviewed date:09/29/2024 04:42:24 PM Interpretation: Performing Lab:[facility], [address] [place] [phone] Notes/Report: Hemoglobin A1c % 5.6 <6.0 % [...] average glucose, using the formula of the E5J-Xgaijqj Average Glucose study (ADAG), Diabetes Care, Vol.31,#8, May. 2007 UA ClnCatch+Micro w/rflx Cul t Reviewed date:09/29/2024 04:43:46 PM Interpretation: Performing Lab:[facility], [address] [place] [phone] Notes/Report: Urine, Clean Catch Color Urine Yellow Appearance Urine Clear PH 5.5 5.0-9.0 Glucose Urine UA Negative Negative mg/dL Urine Blood Negative Negative Specific [place] - Urine 1.015 1.005-1.025 Urine Protein Negative [...] ff Reviewed date:02/02/2025 12:49:12 PM Interpretation: Performing Lab:[facility], [address] [place] [phone] Notes/Report: White Blood Count 5.2 4.8-10.8 X10*3/uL [...] NRBC Abs Auto 0.000 0.0-0.012 X10*3/uL Comprehensive [place]. Panel Fa st Reviewed date:02/02/2025 04:48:58 PM Interpretation: Performing Lab:[facility], [address] [place] [phone] Notes/Report: Sodium 141 135-145 mmol/L Potassium 4.0 [...] Panel Reviewed date:02/02/2025 12:46:25 PM Interpretation: Performing Lab:[facility], [address] [place] [phone] Notes/Report: Bilirubin Direct 0.3 0.0-0.5 mg/dL Lipid Panel Reviewed date:02/02/2025 12:46:37 PM Interpretation: Performing Lab:[facility], [address] [place] [phone] Notes/Report: Triglycerides 133 <150 mg/dL Desirable Triglyceride: [...] low results in patients with liver disease. Comprehensive [place]. Panel Fa (Not yet reviewed by provider) Interpretation: Performing Lab:[facility], [address] [place] [phone] Notes/Report: Sodium 141 135-145 mmol/L Potassium 3.9 [...] (Not yet reviewed by provider) Interpretation: Performing Lab:[address] [phone] Notes/Report: Triglycerides 108 <150 mg/dL Desirable Triglyceride: [...] t yet reviewed by provider) Interpretation: Performing Lab:[address] [address] Notes/Report: PSA,Total (Free>4and<10) 1.12 0.00-4.00 ng/mL A [...] ff Reviewed date:09/26/2025 12:35:30 PM Interpretation: Performing Lab:[address] [phone] Notes/Report: White Blood Count 6.6 4.8-10.8 X10*3/uL [...] Random Reviewed date:09/26/2025 12:33:51 PM Interpretation: Performing Lab:[facility], [address] [place] [phone] Notes/Report: Creatinine Urine 130.60 Microalbumin Urine 7.0 Microalbum/Creatinine Ratio Ur 5.3 <30 ug/mg cr Albumin/Creatinine Ratio Reference Ranges: Normal: < 30 ug/mg creatinine Microalbuminuria: 30 - 300 ug/mg creatinine Clinical Albuminuria: > 300 ug/mg creatinine Hemoglobin A1c Reviewed date:09/26/2025 12:33:43 PM Interpretation: Performing Lab:[facility], [address] [place] [phone] Notes/Report: Hemoglobin A1c % 5.5 <6.0 % [...] average glucose, using the formula of the F8M-Lglvlos Average Glucose study (ADAG), Diabetes Care, Vol.31,#8, 2007 UA ClnCatch+Micro w/rflx Cul t Reviewed date:09/26/2025 12:34:23 PM Interpretation: Performing Lab:[facility], [address] [place] [phone] Notes/Report: Urine, Clean Catch Color Urine Yellow Appearance Urine Clear PH 5.5 5.0-9.0 Glucose Urine UA >=1000 Negative mg/dL Urine Blood Negative Negative Specific [place] - Urine >= 1.030 1.005-1.025 Urine Protein Negative Neg-Trace mg/dL Urine Ketones Trace Negative mg/dL Nitrite Urine Negative Negative Leukocyte Esterase Urine Negative Negative RBC Urine 0-2 0-2 /HPF WBC Urine 0-5 0-5 /HPF Squamous Epithelial Cell Urine 0-2 0-2 /HPF Bacteria Urine None Seen None Seen Hyaline Casts Urine 0-2 0-2 /LPF Electrocardiogram (EKG) Reviewed date:10/07/2024 03:19:23 PM Interpretation: Performing Lab: Notes/Report: Liver Panel Reviewed date:06/06/2025 02:54:42 PM Interpretation: Performing Lab:[facility], [address] [place] [phone] Notes/Report: Bilirubin Total 0.9 0.0-1.0 mg/dL Bilirubin Direct 0.4 0.0-0.5 mg/dL Aspartate Amino Transferase 37 5-37 U/L Alanine Aminotransferase 32 0-40 U/L Total Protein 6.8 6.5-8.0 g/dL Albumin Level 4.5 3.5-5.0 g/dL Alkaline Phosphatase 66 39-117 U/L Pathology Reviewed date:10/13/2024 02:00:03 PM Interpretation: Performing Lab:[facility], [address] [facility], [place] [address] Notes/Report: -- ---- Name: Dario Albarran Rod Age/Sex: 64/M : 1960 Unit#: [id number] Attend Dr: Bob Guillen MD Re10/10/24 Status : [facility] Location: [facility] Disch: -- ---- SPEC : [id number] RECD : 10/10/24 STATUS: [facility] NUM: [id number] JOHN: 10/10/[address] [facility] [address]: Bob Guillen MD ENTERED: 10/10/24-09 03 [...] To: Pop Cleveland MD [facility] [address] [place] [address] [place] [address] CONTINUED ON NEXT PAGE -- ---- Name: DeionDario Rod Age/Sex: 64/M : 1960 Unit#: [id number] Attend Dr: Bob Guillen MD Re10/10/24 Status : [facility] Location: [facility] Disch: -- ---- SPEC : [id number] RECD : 10/10/24 STATUS: [facility] NUM: [id number] JOHN: 10/10/[address] [facility] [address]: Bob Guillen MD ENTERED: 10/10/24-09 03 SP TYPE: Surgical OTHR DR: Pop Cleveland MD ORDERED: HE Stain/6, Gross Micro L4/2, Special st. 2, AB/PAS Copies To: (Continued) Bob Guillen MD [facility] [address] [place], [place] [id number] -- ---- Signed (signature on file) Raymond Villagomez MD 10/13/24 0957 -- ---- END OF REPORT US aorta Reviewed date:10/31/2024 02:58:04 PM Interpretation: Performing Lab: Notes/Report: [facility] [address] [place] [address] Ultrasound Report Signed Patient: Dario Albarran MR#: [id number] 5 : 1960 Acct:[id number] Age/Sex: 64 / M ADM Date: 10/28/24 Loc: HO.US Attending Dr: Pop Cleveland MD Ordering Physician: Pop Cleveland MD Date of Service: 10/28/24 Procedure(s): US aorta Accession Number(s): [id number] cc: Pop Cleveland MD CLINICAL HISTORY: FAMILY [...] in OV> 10/29/2453 DD/ 0 TD/TT: 10/29/24650 [employer]: [address] [address] Ultrasound Report Signed Patient: Dario Albarran MR#: [id number] 5 : 1960 Acct:[id number] Age/Sex: 64 / M ADM Date: 10/28/24 Loc: HO.US Attending Dr: Pop Cleveland MD Ordering Physician: Pop Cleveland MD Date of Service: 10/28/24 Procedure(s): US aorta Accession Number(s): [id number] cc: Pop Cleveland MD CLINICAL HISTORY: FAMILY [...] in OV> 10/29/2453 DD/ 0 TD/TT: 10/29/24650 [employer]: Danette Magana Reviewed date:02/02/2025 12:45:34 PM Interpretation: Performing Lab:[facility], [address] [place] [phone] Notes/Report: Danette Magana See Note Specimen held [...] Hayes 11:38:12 AM EST > info faxed Vida Hayes 10/25/2024 11:50:25 AM >appt is with Jaquelin Dallas NP [facility]dy Annette 10/25/2024 02:17:16 PM > info given [...] Unknown 08/02/2013 Administered Given at wo rk; [facility] Flu Vaccine Unknown 07/18/2014 Administered [facility] Fluarix Quadrivalent Unknown 06/30/2016 Administered [facility] Shingrix IM Intramuscular 07/02/2018 Administered Shingrix [...] Problem Status W/U Status Risk Notes Problem 14923810 Lymphocytosis (D72.820) Active confirmed Problem 62680408 Other chronic pain (G89.29) Active confirmed Problem 077878935 Lumbar disc disease (M51.9) Active confirmed Problem Essential hypertension (20375415) Essential hypertension (I10) Active confirmed Problem Prediabetes (226561135) Prediabetes (R73.09) Active confirmed Problem 707405854 High triglycerides (E78.1) Active confirmed Problem 711158282 Cervical disc disease (M50.90) Active confirmed Problem Old myocardial infarction (8131181) History of NV (myocardial infarction) (I25.2) Active confirmed Problem 34407646 Sciatica of left side (M54.32) Active confirmed Problem 885241252 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 [place] [id number] 09/29/2024 Pop Cleveland Blood tests for routine general physical examination Z00.00 ; High triglycerides E78.1 ; Prediabetes R73.09 and Essential hypertension I10 Pop Cleveland MD [address] [place] [id number] 02/02/2025 Pop Cleveland Elevated LFTs R79.89 Pop Cleveland MD [address] [place] [address] Drive [address] [place] [id number] 09/26/2025 Pop Cleveland High triglycerides E78.1 ; Prediabetes R73.09 ; Lymphocytosis D72.820 ; Elevated cholesterol with high triglycerides E78.2 ; History of NV (myocardial infarction) I25.2 and Annual physical exam Z00.00 Pop Cleveland MD [address] [place] [id number] 10/07/2024 Pop Cleveland Family history of abdominal [...] Pop Cleveland MD [address] [place] [id number] 12/01/2024 Pop Cleveland History of pneumonia Z87.01 ; ST elevation myocardial infarction involving left anterior descending (LAD) coronary artery I21.02 and History of cardiac arrest Z86.74 Pop Cleveland MD [address] [place] [id number] 12/15/[address] elevation myocardial infarction involving left anterior descending (LAD) coronary artery I21.02 and History of cardiac arrest Z86.74 Pop Cleveland MD [address] [place] [id number] 01/31/[address] elevation myocardial infarction involving left anterior descending (LAD) coronary artery I21.02 and History of cardiac arrest Z86.74 Pop Cleveland MD [address] [place] [id number] 04/03/2025 Pop Cleveland History of cardiac arrest Z86.74 and History of NV (myocardial infarction) I25.2 Pop Cleveland MD [address] [place] [id number] 06/05/2025 Pop Cleveland Elevated LFTs R79.89 and History of NV (myocardial infarction) I25.2 Pop Cleveland MD [address] [place] [id number] 11/18/2024 Pop Cleveland MD [address] [id number] 04/29/2025 Pop Cleveland Assessments Encounter Date Diagnosis (ICD Code) Assessment Notes Treatment Notes Treatment Clinical Notes Section Notes 09/29/2024 Blood tests for routine general physical examination (ICD-10 - Z00.00) 09/29/2024 High triglycerides (ICD-10 - E78.1) 02/02/2025 Elevated LFTs (ICD-10 - R79.89) 09/26/2025 High triglycerides (ICD-10 - E78.1) 10/07/2024 Family history of abdominal aortic aneurysm (AAA) (ICD-10 - Z82.49) us order faxed to [facility] CS dept 10/07/2024 Annual physical exam (ICD-10 - Z00.00) labs reviewed and discussed with patient 12/01/2024 History of pneumonia (ICD-10 - Z87.01) pending diagnostic testing 12/01/2024 ST elevation myocardial infarction involving left anterior descending (LAD) coronary artery (ICD-10 - I21.02) having no pains and 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 getting a stress test next week to see if his other lesions are significant 06/05/2025 Elevated LFTs (ICD-10 - R79.89) will check today to see if he can go on higher statin 09/29/2024 Prediabetes (ICD-10 - R73.09) 09/26/2025 Prediabetes (ICD-10 - R73.09) 10/07/2024 Right tennis elbow (ICD-10 - M77.11) advised to where tennis elbow brace and ice 12/01/2024 History of cardiac arrest (ICD-10 - Z86.74) has been doing well p/hospital 12/15/2024 History of cardiac arrest (ICD-10 - Z86.74) is followed by [facility] and doing cardiac rehab 01/31/2025 History of cardiac arrest (ICD-10 - Z86.74) doing great waiting for echo to determine need for defibi=rillator 06/05/2025 History of NV (myocardial infarction) (ICD-10 - I25.2) is doing well and not having any problems/ had a myocardial perfusion scan 09/29/2024 Essential hypertension (ICD-10 - I10) 09/26/2025 Lymphocytosis (ICD-10 - D72.820) 10/07/2024 Plantar fasciitis of right foot (ICD-10 - M72.2) advised to use arch supports 09/26/2025 Elevated cholesterol with high triglycerides (ICD-10 - E78.2) 10/07/2024 Pain in right shoulder (ICD-10 - M25.511) referral to [facility] 09/26/2025 History of NV (myocardial infarction) (ICD-10 - I25.2) 10/07/2024 Other chronic pain (ICD-10 - G89.29) 09/26/2025 Annual physical exam (ICD-10 - Z00.00) 10/07/2024 Elevated LFTs (ICD-10 - R79.89) decrease [...] Complete Blood Count Auto Diff 5 Comprehensive [place]. Panel Fast 5 Comprehensive [place]. Panel Fast 5 Lipid Panel 01/31/2025 Lipid Panel with Reflex 09/26/2025 PSA,Total (Free>4and<10) 09/26/2025 Next Appt Details Provider Name:Pop house, 10/16/2025 10:30:00 AM, [address] [place] [address], [address], [place], [place], [phone], Insurance Providers Payer Name Payer Address Payer Phone Subscriber Number Group Number Insured Name Patient Relationship to Insured Coverage Start Date Coverage End Date [employer] [address] [place], [place] [id number] Dario Albarran Self - patient is the insured Medical (General) History Medical History History ICD Code colonoscopy 12/05/13, Dr. Donovan evangelista - 5 year f/u; Colonoscopy done 07/29/[address] Guillen - repeat 5 years colonoscopy 10/10/24 repeat 5y ultrasound kidneys need no further follo w up
--- OUTSIDE RECORDS SUMMARY | 2025-09-26 15:25 | XMS_ITS | Patient Health Record ---
Author Organization [facility] Address [address] [place] [address] Care Team Providers Care Crayon Sawyer Name Role Phone Megha LEHMAN, Pop Primary Care Provider Bob Mejia [phone] Allergies No Known Allergies Results Component Value Reference Range Notes Pathology Reviewed date:10/17/2024 11:07:09 PM Interpretation: Performing Lab:[facility], [address] [place] [phone] Notes/Report: Reason For Referral No Information Medications Medication SIG (Take, Route, Frequency, Duration) Notes Start Date End Date Status Spironolactone 25 MG Tablet TAKE 1 TABLET BY MOUTH EVERY DAY Oral; Duration: 90 Days Active Clopidogrel Bisulfate 75 MG Tablet TAKE 1 TABLET BY MOUTH EVERY DAY Oral; Duration: 30 Days Active Entresto 24-26 MG Tablet TAKE 1 TABLET BY MOUTH TWICE A DAY FOR 30 DAYS Oral; Duration: 30 Days Active Farxiga 10 MG Tablet TAKE 1 TABLET BY MOUTH EVERY DAY Oral; Duration: 30 Days Active Metoprolol Succinate ER 100 MG Tablet Extended Release 24 Hour TAKE 1 TABLET BY MOUTH EVERY DAY Oral; Duration: 90 Days Active Omeprazole 40 MG Capsule Delayed Release 1 capsule 1/2 to 1 hour before morning meal Orally Once a day; Duration: 90 days 10/10/2024 Active Apixaban 5 MG Tablet as directed Orally Active Pantoprazole Sodium 40 MG Tablet Delayed Release 1 Orally Once a day--space apart from the Plavix by 10 to 12 hours; Duration: 90 days This will be replacing his omeprazole due to the concurrent use of Plavix. 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 Section Notes: Nonsmoker; 1-2 beers QD Nonsmoker; 1-2 beers QD Nonsmoker; 1-2 beers QD Nonsmoker; 1-2 beers QD Problems Problem Type SNOMED Code ICD Code Onset Dates Problem Status W/U Status Risk Notes Problem Colon cancer screening (692148504) Colon cancer screening (Z12.11) Active confirmed Problem Gastro-esophageal reflux disease without esophagitis (651260740) Gastro-esophageal reflux disease without esophagitis (K21.9) Active confirmed Problem Screening for malignant neoplasm of colon (672235966) Encounter for screening for malignant neoplasm of colon (Z12.11) Active confirmed Problem Diverticular disease of colon (561189874) Diverticulosis of large intestine without perforation or abscess without bleeding (K57.30) Active confirmed Problem Erosive esophagitis (13490383) Erosive esophagitis (K22.10) Active confirmed Problem History of adenomatous polyp of colon (944707837) Hx of adenomatous colonic polyps (Z86.010) Active confirmed Problem Right upper quadrant pain (297636081) Abdominal pain, right upper quadrant (R10.11) Active confirmed Problem Pre-procedure evaluation check (077170800) Pre-procedural examination (Z01.818) Active confirmed Problem Gastroesophageal reflux disease (disorder) (877645910) Chronic GERD (K21.9) Active confirmed Vital Signs Temperature 96.9 degrees Fahrenheit 03/01/2025 Blood pressure diastolic 01 mm Hg 03/01/2025 Height 71 in 03/01/2025 Blood pressure systolic 001 mm Hg 03/01/2025 Weight 182.6 lbs 03/01/2025 BMI 25.46 kg/m2 03/01/2025 Encounters Encounter Location Date Provider Diagnosis [facility] [address] [place] [id number] 10/10/2024 Bob Guillen Colon cancer screeni ng Z12.11 ; Colon polyps K63.5 ; Diverticulosis of large intestine without perforation or abscess without bleeding K57.30 ; Other hemorrhoids K64.8 ; Gastro-esophageal reflux disease without esophagitis K21.9 ; Erosive esophagitis K22.10 and Hiatal hernia K44.9 [facility] [address] [place] [phone] 09/28/2024 Bob Mindy Colon cancer screeni ng Z12.11 ; Chronic GERD K21.9 and Hx of adenomatous colonic polyps Z86.010 [facility] [address] [place] [phone] 03/01/2025 Bob Guillen Hx of adenomatous colonic polyps Z86.010 ; Erosive esophagitis K22.10 and Chronic GERD K21.9 [facility] [address] [place] [phone] 10/10/2024 Bob Guillen [facility] [address] [place] [phone] 10/17/2024 Bob Guillen [facility] [address] [place] [phone] 06/13/2025 Bob Guillen Assessments Encounter Date Diagnosis (ICD [...] it has not, but given his recent [place] and the fact that he is on [...] it has not, but given his recent [place] and the fact that he is on [...] keep you advised of his progress.. 03/01/2025 Chronic GERD (ICD-10 - K21.9) Overall, [...] it has not, but given his recent [place] and the fact that he is on [...] to keep you advised of his progress.. 09/28/2024 Hx of adenomatous colonic polyps (ICD-10 [...] Name:Bob Guillen , 02/28/2026 01:00:00 PM, [address] [facility], [address], [place], [address], Insurance Providers Payer Name Payer Address Payer Phone Subscriber Number Group Number Insured Name Patient Relationship to Insured Coverage Start Date Coverage End Date [facility] [address] [place] [address] [id number] CHELITA JAMISON Self - patient is the insured Medical (General) History Medical History History ICD Code Colonoscopy --2007- smal l tubular adenoma removed; also noted were small internal hemorrhoids and occasional diverticulosis; colonoscopy in 11/2013-small tubular adenoma removed IBS Hx of a bleeding ulcer which required tr ansfusions in high school. Denies [place],DM,CVA,Lung disease,renal dise ase Chronic right upper quadrant discomfort with a negative gallbladder ultrasound in 2015 Colonoscopy 07/2019 with a small tubular adenoma HTN Malignant melanoma on 2022 Follow-up screening colonosc opy in September 2024 revealed a small hyperplastic polyp that was removed GERD--upper endoscopy in Sep revealed a small hiatal hernia and a small area of erosive esophagitis with a small ulceration. Biopsies were negative for Hopper's esophagus or any other pathology other than esophagitis. He was started on omeprazole 40 mg daily at that time. [place] with cardiac arrest --had 2 stents placed, EF 44% on 02/2025 ECHO--had an external defibrillator for 3 months Afib during the above hospitalization fo r his [place] Surgical History Surgery Date(Month/Year) Left shoulder Removal of malignant melanoma from scalp in 09/2023 stents in heart Hospitalization History Reason Date(Month/Year) stents in heart
--- OUTSIDE RECORDS SUMMARY | 2025-09-26 15:26 | XMS_ITS | Clinical Summary ---
Author Organization [facility] Address [address] [place] [address] Phone Care Team Providers Care Electrical Wirer Name Role Phone Pop Cleveland MD Primary [...] disease 04/17/2025 Coronary artery disease invo lving cheesh-na coronary artery of cheesh-na heart without angina pectoris 04/17/2025 Social History Tobacco Use Types Packs/Day Years [...] - PCV) 2008 LIPID PANEL 08/17/2019 08/17/2018 INFLUENZA VACCINE (#1) 2025 , 08/03/2023, 07/08/2022, Additional history exists COVID-19 VACCINE ( season) 2025 09/20/2024, 09/18/2023, [...] this topic Medical Devices Not on file Insurance [employer] MEDICARE PPO BLUE [place] [address] [place] [address] MEDICARE PPO BLUE REPLACEMENT [facility] MEDICARE PPO BLUE [place] [address] [place] [address] MEDICARE PPO BLUE [place] [address] [place] [address] MEDICARE PPO BLUE REPLACEMENT [employer] [place] BLUE REPLACEMENT Care Teams Electrical Wirer Relationship Specialty Start Date End Date Pop Cleveland MD [address] [place] [address] [place] [address] PCP - General Internal Medicine 01/27/25 Additional Source Comments The information contained in this document represents components of the legal health record. It is not the complete legal health record.[facility]
== END 2025-09-26 11:33 | disposition home or self-care (01) ==
LOC: HO.LNP 11:32
PROVIDERS: Visit Provider Internal Medicine
DX: Z00.00 Encounter for general adult medical examination without abnormal findings (principal); E78.2 Mixed hyperlipidemia; R73.09 Other abnormal glucose; D72.820 Lymphocytosis (symptomatic); I25.2 Old myocardial infarction; Z12.5 Encounter for screening for malignant neoplasm of prostate
CPT/HCPCS: 80053; 80061; 81001; 82043; 82570; 83036; 84153; 85025